=== PATIENT | female | born 2000 | race Caucasian/White ===

== ENCOUNTER 2022-02-28 12:01 | Emergency (ER) | payer MEDICAID, SELFPAY ==
[2022-02-28] VITALS (11 sets, daily range): BP systolic 122–160; BP diastolic 72–114; PULSE 98–120; RESP 15–18; TEMP 36.9; O2SAT 98–100
--- NOTE | 2022-02-28 12:00 | RT.EKG_ITS ---
APPROVED REPORT Exam: Resting ECG Reason for Exam: chest discomfort Patient Location: E HR:108 bpm ECG Measurements Heart Rate 108 AXIS NH 152 P 71 QRSd 77 QRS 80 QT 336 T 46 QTc 451 Conclusion Sinus tachycardia...rate> 99
--- NOTE | 2022-02-28 13:30 | DI.CT_ITS ---
Exam(s) CT CHEST W EXAM: CT CHEST W CLINICAL HISTORY: chest pain after cough/vomiting, painful swallowin. TECHNIQUE: Multi planar reconstructions were performed. CONTRAST MATERIAL: Omnipaque 350; 75 cc COMPARISON: No exams were available for comparison FINDINGS: CHEST: LUNGS: No infiltrates nor pleural effusions. No nodules. No pneumothorax. No significant focal fin dings in the trachea and mainstem bronchi. No bronchiectasis. MEDIASTINUM: There is no hilar nor mediastinal adenopathy. No pneumomediastinum.No obvious abnormalit y in the region of the esophagus and para esophageal tissues nor at the GE junction. Visualized uppe r stomach unremarkable. CARDIAC: Heart size is normal. There is no pericardial effusion.Caliber of the thoracic aorta is wit hin normal limits. No dissection. VISUALIZED UPPER ABDOMEN:There are no significant adrenal masses. OSSEOUS: No significant osseous lesions.No fractures.. IMPRESSION: 1. No significant intrathoracic findings. RADIATION DOSE DELIVERED: 571.32mGy.cm Total DLP DATA REPOSITORY: All CT scans at this facility are submitted to the National Radiology Data Registry (NRDR) Dose Index Registry (DIR) with the [employer] (ACR). RADIATION OPTIMIZATION: All CT scans at this facility use at least one of these dose optimization te chniques: automated exposure control; mA and/or kV adjustment per patient size (includes targeted exa ms where dose is matched to clinical indication); or iterative reconstruction.
[2022-02-28 14:06] LABS: Abs Immature Grans 0.05 10^3/uL (0.0-0.06); Absolute Basophil Count 0.09 10^3/uL (0.0-0.2); Absolute Eosinophil Count 0.33 10^3/uL (0.0-0.7); Absolute Lymphocyte Count 3.06 10^3/uL (1.2-3.4); Absolute Monocyte Count 0.84 10^3/uL (0.1-0.8); Basophils % 0.8; HCT 44.4 % (36.0-46.0); HGB 14.3 g/dL (11.2-15.7); Immature Grans % 0.5; Lymphocytes % 27.6; MCH 29.2 pg (27.0-33.0); MCHC 32.2 % (32.0-36.0); MCV 91 fL (80-95); MPV 11.4 fL (8.0-11.0); Monocytes % 7.6; Neutrophils % 60.5; Platelet Count 355 10^3/uL (130-400); RBC 4.89 10^6/uL (3.93-5.22); RDW 13.7 % (11.7-14.6); RDW-SD 46.2 fL; WBC 11.07 10^3/uL (4.4-10.8)
[2022-02-28 14:32] LABS: ALT 36 U/L (14-59); AST 19 U/L (15-37); Albumin 4.4 g/dL (3.4-5.0); Alkaline Phosphatase 102 U/L (46-116); Anion Gap 10.6 mmol/L (3-11); BUN 5 mg/dL (7-18); Bilirubin, Total 0.3 mg/dL (0.2-1.0); CO2 28.4 mmol/L (21.0-32.0); CREATININE 0.8 mg/dL (0.55-1.02); Calcium 9.9 mg/dL (8.5-10.1); Chloride 101 mmol/L (98-107); Estimated GFR 106.11 (mL/min/1.73m2); Glucose 86 mg/dL (74-106); Potassium 3.1 mmol/L (3.5-5.1); Sodium 140 mmol/L (136-145); Total Protein 9.5 g/dL (6.4-8.2)
[2022-02-28] MEDS: Normal Saline - Diluent 50 ML VIAL IJ (14:41)
[2022-02-28] MEDS: Omnipaque 350 MG/ML 100 ML BTL 80 ML IJ (14:42)
[2022-02-28] MEDS: Normal Saline Flush 10 ML SYR IVP (14:42)
--- NOTE | 2022-02-28 14:56 | DI.VRAD_ITS ---
PROCEDURE INFORMATION: Exam: CT Chest With Contrast; Diagnostic Exam date and time: 02/28/2022 2:37 PM Age: 22 years old Clinical indication: Other: Chest pain after cough/vomiting, painful swallowin TECHNIQUE: Imaging protocol: Diagnostic computed tomography of the chest with contrast. 3D rendering (Not supervised by radiologist): MIP and/or 3D reconstructed images were created by the technologist. Contrast material: OMNIPAQUE 350; Contrast volume: 80 ml; Contrast route: INTRAVENOUS (IV); COMPARISON: No relevant prior studies available. FINDINGS: Lungs: Unremarkable. No consolidation. No masses. Pleural spaces: Unremarkable. No pneumothorax. No pleural effusion. No pneumomediastinum. Heart: Unremarkable. No cardiomegaly. No pericardial effusion. Lymph nodes: Unremarkable. Minimal residual thymic tissue is present. No enlarged lymph nodes. Vasculature: Unremarkable. No aortic aneurysm. Bones/joints: Unremarkable. No acute fracture. Soft tissues: Unremarkable. IMPRESSION: No acute findings. Dictated and Authenticated by: Andrew Núñez MD. Ordering:BLANCA Tolentino MD
[2022-02-28] MEDS: Mylanta Suspension 30 ML CUP PO (15:02)
[2022-02-28] MEDS: FAMOTIDINE 20 MG in Normal Saline 100 ML 400 MG IVPB (15:02)
[2022-02-28] MEDS: Pantoprazole 40 MG VIAL IVP (15:25)
--- NOTE | 2022-02-28 16:43 | ED.GENADUL_ITS ---
Discharge Plan Disposition Patient Disposition: Home Condition: Stable Discharge Details Clinical Impression: Esophagitis Primary Care Provider: [facility] Provider: Rajan Paul Home Meds and New Rx's Prescriptions: New pantoprazole 40 mg tablet,delayed release (DR/EC) 40 mg PO DAILY Qty: 14 0RF famotidine [Pepcid] 20 mg tablet 20 mg PO BID Qty: 14 0RF Continued albuterol sulfate 90 mcg/actuation Hfa Aerosol Inhaler 2 puff INHALATION 6XD PRN norethindrone (contraceptive) [Marilee-BE] 0.35 mg Tablet 0.35 mg PO DAILY calcium carbonate 1,000 mg Tablet 2,000 mg PO DAILY melatonin 10 mg Tablet 10 mg PO DAILY Discharge Instructions Instructions: GERD (Gastroesophageal Reflux Disease) (ED) Additional Instructions: Allow for bowel rest today and tomorrow. Please maintain a clear liquid diet today. You may advance your diet to soft bland foods tomorrow evening as tolerated. Please contact your primary care physician to arrange follow-up. If symptoms persist this week, additional diagnostic testing may be indicated. Be sure to discuss this with your doctor. Return to the ER immediately for any worsening or new concerning symptoms. Medical Decision Making 22-year-old female with history of migraines, here with chest discomfort and difficulty swallowing that started after excessive coughing and posttussive emesis over the past couple weeks. EKG was reviewed and interpreted by me: Normal axis, please see report, sinus tachycardia 108 bpm, consider biatrial enlargement Considered Boerhaave's syndrome versus GERD versus esophagitis. CT of the chest was interpreted by radiology: No acute findings. Patient was given Pepcid IV, pantoprazole IV, and Mylanta p.o. She was reasse ssed and noted significant improvement in symptoms. Tolerating p.o. intake. All results were discussed with the patient. Plan will be for bowel rest and will continue both Pepcid and PPI. Patient understands that if symptoms return or persist this week, she should be seen for additional outpatient diagnostic work-up including potential endoscopy. She was encouraged to return immediately should she have any worsening or new concerning symptoms. Patient does have mild hypokalemia. She was given potassium chloride 20 mEq by mouth. Lab Data Lab results reviewed: Yes I reviewed the patient's lab results. Labs: Laboratory Tests Range/Units 02/28/22 02/28/22 13:09 13:09 WBC (4.4-10.8) 10^3/uL 11.07 H RBC (3.93-5.22) 10^6/uL 4.89 Hgb (11.2-15.7) g/dL 14.3 Hct (36.0-46.0) % 44.4 MCV (80-95) fL 91 MCH (27.0-33.0) pg 29.2 MCHC (32.0-36.0) % 32.2 RDW (11.7-14.6) % 13.7 Plt Count (130-400) 10^3/uL 355 MPV (8.0-11.0) fL 11.4 H Immature Gran % 0.5 Neutrophils % 60.5 Lymphocytes % 27.6 Monocytes % 7.6 Eosinophils % 3.0 Basophils % 0.8 Nucleated RBC % (0.0-0.3) % 0.0 Absolute Neutrophils (1.2-6.7) 10^3/uL 6.70 Absolute Lymphocytes (1.2-3.4) 10^3/uL 3.06 Absolute Monocytes (0.1-0.8) 10^3/uL 0.84 H Absolute Eosinophils (0.0-0.7) 10^3/uL 0.33 Absolute Basophils (0.0-0.2) 10^3/uL 0.09 Sodium (136-145) mmol/L 140 Potassium (3.5-5.1) mmol/L 3.1 L Chloride (98-107) mmol/L 101 Carbon Dioxide (21.0-32.0) mmol/L 28.4 Anion Gap (3-11) mmol/L 10.6 BUN (7-18) mg/dL 5 L Creatinine (0.55-1.02) mg/dL 0.8 Est GFR (CKD-EPI 2020) (mL/min/1.73m2) 106.11 Glucose (74-106) mg/dL 86 Calcium (8.5-10.1) mg/dL 9.9 Total Bilirubin (0.2-1.0) mg/dL 0.3 AST (15-37) U/L 19 ALT (14-59) U/L 36 Alkaline Phosphatase (46-116) U/L 102 Total Protein (6.4-8.2) g/dL 9.5 H Albumin (3.4-5.0) g/dL 4.4 HPI General Mode of arrival: ambulatory . Date/Time Provider Initiated Documentation: 02/28/22 13:30 . Limitations to Documentation: no limitations . Information obtained by: patient . HPI Narrative: 22-year-old female with history of migraine headaches, presents with chief complaint of chest pain. Patient notes that she has had recent URI with excessive coughing and posttussive emesis over the past 2 weeks. Those symptoms have improved and she no longer has a cough but subsequently developed chest pain yesterday. Pain is described as sharp and pressure worse when she attempts to swallow. She notes it feels like she has a stone stuck in her esophagus. Pain is moderate. No associated abdominal pain. No shortness of breath. Related Data Home Medications Medication Instructions Recorded Confirmed albuterol sulfate 90 mcg/actuation 2 puff inhalation 6XD PRN 02/28/22 02/28/22 aerosol inhaler calcium carbonate 1,000 mg tablet 2,000 mg PO DAILY 02/28/22 02/28/22 famotidine 20 mg tablet (Pepcid) 20 mg PO BID #14 tabs 02/28/22 melatonin 10 mg tablet 10 mg PO DAILY 02/28/22 02/28/22 norethindrone (contraceptive) 0.35 0.35 mg PO DAILY 02/28/22 02/28/22 mg tablet (Marilee-BE) pantoprazole 40 mg tablet,delayed 40 mg PO DAILY #14 tabs 02/28/22 release Previous Rx's Medication Instructions Recorded famotidine 20 mg tablet (Pepcid) 20 mg PO BID #14 tabs 02/28/22 pantoprazole 40 mg tablet,delayed 40 mg PO DAILY #14 tabs 02/28/22 release Allergies Allergy/AdvReac Type Severity Reaction Status Date / Time citalopram Allergy Intermediate Nausea Unverified 02/28/22 12:13 amoxicillin [From Augmentin] Allergy Mild Nausea Unverified 02/28/22 12:13 clavulanic acid Allergy Mild Nausea Unverified 02/28/22 12:13 [From Augmentin] gluten Allergy Mild Unverified 02/28/22 12:13 lactase [From Dairy Aid] Allergy Mild Unverified 02/28/22 12:13 legumes Allergy Mild Unverified 02/28/22 12:13 General Stated Complaint: Chest Pain JEZ: 3 Review of Systems All systems reviewed & are unremarkable except as noted in HPI and below Constitutional Constitutional: Denies fever(s) Cardiovascular Cardiovascular: Denies dyspnea Respiratory Respiratory: Denies dyspnea PFSH All Active Problems Esophagitis (Acute) Social History Smoking risk assessment performed?: No Exam Const General: cooperative and no acute distress HENMT Mouth: moist mucous membranes Eyes Conjunctivae: normal conjunctivae Sclera: normal sclerae Neck Neck: trachea midline and supple Resp Auscultation: clear to auscultation bilaterally, no rales, no rhonchi and no wheezes Cardio Rate: regular rate Rhythm: regular rhythm Other: Increased heart rate with inspiration and decreases with expiration GI Palpation: soft, not firm, no guarding, no masses, not rigid and nontender Skin General skin exam: no rashes or lesions noted Neuro General: patient alert, patient awake and tone normal Extrem General: no calf tenderness and no edema Psych Appearance: grossly normal Mental Status: mental status grossly normal Speech and Movement: speech and movement normal Course Vital Signs Vital signs: Vital Signs Temperature 36.9 C 02/28/22 12:09 Respiratory Rate 18 02/28/22 12:09 Blood Pressure 160/114 H 02/28/22 12:09 Pulse Oximetry 98 02/28/22 12:09 Temperature 36.9 C 02/28/22 12:09 Pulse 120 H 02/28/22 12:17 Respiratory Rate 15 02/28/22 13:12 Respiratory Effort 02/28/22 13:12 Respiratory Depth Normal 02/28/22 13:12 Respiratory Pattern Normal 02/28/22 13:12 Blood Pressure 148/77 H 02/28/22 12:17 Pulse Oximetry 98 02/28/22 12:09 Oxygen Delivery Method Room Air 02/28/22 12:09 Oxygen Flow Rate 0 02/28/22 12:09 Pain Level 6 02/28/22 13:12 Lab/Test Results Lab/Test Results: Laboratory Tests Range/Units 02/28/22 02/28/22 13:09 13:09 WBC (4.4-10.8) 10^3/uL 11.07 H RBC (3.93-5.22) 10^6/uL 4.89 Hgb (11.2-15.7) g/dL 14.3 Hct (36.0-46.0) % 44.4 MCV (80-95) fL 91 MCH (27.0-33.0) pg 29.2 MCHC (32.0-36.0) % 32.2 RDW (11.7-14.6) % 13.7 Plt Count (130-400) 10^3/uL 355 MPV (8.0-11.0) fL 11.4 H Immature Gran % 0.5 Neutrophils % 60.5 Lymphocytes % 27.6 Monocytes % 7.6 Eosinophils % 3.0 Basophils % 0.8 Nucleated RBC % (0.0-0.3) % 0.0 Absolute Neutrophils (1.2-6.7) 10^3/uL 6.70 Absolute Lymphocytes (1.2-3.4) 10^3/uL 3.06 Absolute Monocytes (0.1-0.8) 10^3/uL 0.84 H Absolute Eosinophils (0.0-0.7) 10^3/uL 0.33 Absolute Basophils (0.0-0.2) 10^3/uL 0.09 Sodium (136-145) mmol/L 140 Potassium (3.5-5.1) mmol/L 3.1 L Chloride (98-107) mmol/L 101 Carbon Dioxide (21.0-32.0) mmol/L 28.4 Anion Gap (3-11) mmol/L 10.6 BUN (7-18) mg/dL 5 L Creatinine (0.55-1.02) mg/dL 0.8 Est GFR (CKD-EPI 2020) (mL/min/1.73m2) 106.11 Glucose (74-106) mg/dL 86 Calcium (8.5-10.1) mg/dL 9.9 Total Bilirubin (0.2-1.0) mg/dL 0.3 AST (15-37) U/L 19 ALT (14-59) U/L 36 Alkaline Phosphatase (46-116) U/L 102 Total Protein (6.4-8.2) g/dL 9.5 H Albumin (3.4-5.0) g/dL 4.4 POC- Test(urine) Negative
[2022-02-28] MEDS: Potassium Chloride 20 MEQ TABCR PO (17:01)
== END 2022-02-28 17:02 | disposition home or self-care (01) ==
PROVIDERS: Emergency Provider Student in an Organized Health Care Education/Training Program
DX: K20.90 Esophagitis, unspecified without bleeding (principal); R00.0 Tachycardia, unspecified; I51.7 Cardiomegaly
CPT/HCPCS: 36415; 80053; 81025; 93005; 96365; 96375; 99285; 71260; 85025; 93010; J3490

== ENCOUNTER 2022-04-22 15:56 | Outpatient (REF) | payer MEDICAID, SELFPAY ==
[2022-04-22 21:38] LABS: Anion Gap 8.1 mmol/L (3-11); BUN 8 mg/dL (7-18); CO2 27.9 mmol/L (21.0-32.0); CREATININE 0.8 mg/dL (0.55-1.02); Calcium 9.8 mg/dL (8.5-10.1); Chloride 103 mmol/L (98-107); Estimated GFR 106.11 (mL/min/1.73m2); Glucose 81 mg/dL (74-106); Potassium 4.1 mmol/L (3.5-5.1); Sodium 139 mmol/L (136-145); TSH (W/Ref FT4) 0.63 uIU/mL (0.36-3.74)
== END 2022-04-22 15:57 | disposition home or self-care (01) ==
LOC: NCHCN 15:56
PROVIDERS: Visit Provider Family Medicine
DX: R00.0 Tachycardia, unspecified (principal)
CPT/HCPCS: 80048; 84443

== ENCOUNTER 2022-06-17 17:50 | Outpatient (REF) | payer MEDICAID, SELFPAY ==
--- NOTE | 2022-06-17 15:30 | SKI_PTH ---
PATIENT: Linwood Doyle LOC: NCN #:[id number] AGE/SX: 22/F ROOM: RE06/17/[address]: Lorrie Prater : 2000 BED: DIS: 06/17/2022 SPEC #: [id number] RECD: 06/18/22 09:45 STATUS: JENNYFER REEddie #: [id number] KAVITA: 06/17/22 15:[address]: Lorrie Prater DEPT: Surgical Specimen RECD BY: Whitney Parikh Tissues: 1 - SKIN BIOPSY(SHAVE/PUNCH) Procedures: SKIN LEVEL 4 Comments: [id number]
== END 2022-06-17 17:51 | disposition home or self-care (01) ==
LOC: NCHCN 17:50
PROVIDERS: Visit Provider Family Medicine
DX: D22.5 Melanocytic nevi of trunk (principal)
CPT/HCPCS: 88305

== ENCOUNTER 2022-08-01 13:11 | Emergency (ER) | payer MEDICAID, SELFPAY ==
[2022-08-01 13:23] VITALS: BP 135/78; PULSE 116; RESP 18; O2SAT 99
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
[2022-08-01] MEDS: Normal Saline - Diluent 50 ML VIAL IJ (14:04)
[2022-08-01] MEDS: Normal Saline Flush 10 ML SYR IVP (14:05)
[2022-08-01] MEDS: Omnipaque 350 MG/ML 100 ML BTL IJ (14:05)
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
[2022-08-01 14:10] LABS: Abs Immature Grans 0.03 10^3/uL (0.0-0.06); Absolute Basophil Count 0.07 10^3/uL (0.0-0.2); Absolute Lymphocyte Count 2.96 10^3/uL (1.2-3.4); Absolute Monocyte Count 0.91 10^3/uL (0.1-0.8); Absolute Neutrophil Count 6.28 10^3/uL (1.2-6.7); Basophils % 0.7; Eosinophils % 2.8; HCT 43.7 % (36.0-46.0); HGB 14.7 g/dL (11.2-15.7); Immature Grans % 0.3; Lymphocytes % 28.1; MCH 30.2 pg (27.0-33.0); MCHC 33.6 % (32.0-36.0); MCV 90 fL (80-95); Monocytes % 8.6; Neutrophils % 59.5; Platelet Count 250 10^3/uL (130-400); RBC 4.86 10^6/uL (3.93-5.22); RDW 13.2 % (11.7-14.6); RDW-SD 43.8 fL; WBC 10.55 10^3/uL (4.4-10.8)
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
[2022-08-01 14:25] LABS: ALT 41 U/L (14-59); AST 21 U/L (15-37); Albumin 4.2 g/dL (3.4-5.0); Alkaline Phosphatase 87 U/L (46-116); Anion Gap 9.2 mmol/L (3-11); BUN 10 mg/dL (7-18); Bilirubin, Total 0.5 mg/dL (0.2-1.0); CO2 26.8 mmol/L (21.0-32.0); CREATININE 0.8 mg/dL (0.55-1.02); Calcium 9.2 mg/dL (8.5-10.1); Chloride 104 mmol/L (98-107); Estimated GFR 106.11 (mL/min/1.73m2); Glucose 99 mg/dL (74-106); Lipase 19 U/L (16-77); Potassium 3.6 mmol/L (3.5-5.1); Sodium 140 mmol/L (136-145); Total Protein 8.8 g/dL (6.4-8.2)
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
[2022-08-01] MEDS: Lactated Ringers 1,000 ML 1000 ML IV (14:40)
[2022-08-01 16:01] VITALS: BP 115/73; PULSE 87; RESP 18; O2SAT 98
--- NOTE | 2022-08-01 16:02 | NUR.NOTE ---
wound care applied to left knee abrasion and left elbow abrasion. bacitracin and telfa applied to both. left knee wrapped with zac wrap and let elbow wrapped with kerlix. JOCELYN Watts agreeable with wound care.
== END 2022-08-01 16:03 | disposition home or self-care (01) ==
PROVIDERS: Emergency Provider Physician Assistant; PCP Family Medicine
DX: S80.212A Abrasion, left knee, initial encounter (principal); S30.811A Abrasion of abdominal wall, initial encounter; S40.812A Abrasion of left upper arm, initial encounter; S60.221A Contusion of right hand, initial encounter; V29.99XA Rider (driver) (passenger) of other motorcycle injured in unspecified traffic accident, initial encounter
CPT/HCPCS: 12001; 36415; 73562; 74177; 80053; 81025; 83690; 86900; 86901; 96360; 99285; 70450; 71260; 72125; 73130; 85025; 99284; J3490

== ENCOUNTER 2022-12-10 15:03 | Outpatient (REF) | payer MEDICAID, SELFPAY ==
[2022-12-10 16:17] LABS: Calculated LDL 100 mg/dL (<100); Cholesterol 165 mg/dL (<200); HDL Cholesterol 53 mg/dL (40-60); Triglyceride 63 mg/dL (<150)
== END 2022-12-10 15:04 | disposition home or self-care (01) ==
LOC: NCHCN 15:03
PROVIDERS: PCP Family Medicine; Visit Provider Family Medicine
DX: Z13.220 Encounter for screening for lipoid disorders (principal)
CPT/HCPCS: 80061

== ENCOUNTER 2023-11-24 15:12 | Outpatient (REF) | payer MEDICAID, SELFPAY ==
--- NOTE | 2023-11-24 14:00 | PAPFT_PTH ---
PATIENT: Linwood [place] LOC: [facility]#:[id number] AGE/SX: 23/F ROOM: RE11/24/[address]: Lorrie Prater : 2000 BED: DIS: 11/24/2023 SPEC #: [id number] RECD: 11/25/23 13:20 STATUS: JENNYFER REQ #: [id number] KAVITA: 11/24/23 14:[address]: Lorrie Prater DEPT: [facility] Cytology RECD BY: Whitney Parikh Tissues: 1 - CX/ENDOCX FOR PAP SMEARS Procedures: PAP THIN PREP/UVM Screening HPV DNA PROBE Comments: [id number] (HPV 16 & 18/45)
--- OUTSIDE RECORDS SUMMARY | 2023-11-24 15:17 | XMS_ITS | Encounter Summary ---
Author Organization [facility] Address [address] [place] [address] Care Team Providers Care Geospatial Engineer Name Role Phone Christen, Page DRILLER AND REAMER-C Primary Care Provider [phone] Lorrie Prater MD Primary Care Provider [phone] Encounter Details Date Type Department Care Team (Late st Contact Info) Description 06/16/2021 Lab Requisition [facility] Pathology & Laboratory Medicine - [facility] [address] [place] [address] Lucie Hilton MD [address] [place] [phone] Acute vaginitis Social History Tobacco Use Types Packs/Day Years Used Date Smoking Tobacco: Never Smokeless Tobacco: Never Alcohol Use Standard Drinks/Week Comments Not Currently 0 (1 standard drink = 0.6 oz pur e alcohol) PHQ-2 Answer Date Recorded PHQ-2 SUBTOTAL 0 09/27/2019 Interpersonal Safety Answer Date Record ed Physically Hurt Never 09/14/2019 Verbally Threaten Not on file 09/14/2019 Sex and Gender Information Value Date Recorded Sex Assigned at Not on file Gender Identity Female 01/21/2020 16:11 EST Sexual Orientation Not on file documented as of this encounter Plan of Treatment Not on file documented as of this encounter Procedures Procedure Name Priority Date/Time Associated Diagnosis Comments MOLECULAR VAGINITIS/VAGINOSIS ASSAY Today 06/16/2021 16:10 EDT Acute vaginitis CHLAMYDIA/N. GONORRHOEAE AMPLIFIED NUCLEIC ACID Today 06/16/2021 16:10 EDT Acute vaginitis documented in this encounter Results * CHLAMYDIA/N. GONORRHOEAE AMPLIFIED RNA (06/16/2021 16:10 EDT) Neisseria gonorrhoeae Result Negative Negative 06/17/2021 14:37 EDT [facility] Chlamydia trachomatis Result Negative Negative 06/17/2021 14:37 EDT [facility] Swab ENTIRE VAGINA / Unknown 06/16/2021 16:10 EDT 06/16/2021 21:29 EDT Lucie Hilton MD MICROBIOLOGY - GENER AL ORDERABLES Performing Organization Address [facility] Co de Phone Number [facility] [address] [place] [address] * MOLECULAR VAGINITIS/VAGINOSIS ASSAY (06/16/2021 16:10 EDT) Jeannie Species Negative Negative 14:37 EDT [facility] Jeannie glabrata Negative Negative 06/17/2021 14:37 EDT [facility] Trichomonas Vaginalis Negative Negative 06/17/2021 14:37 EDT [facility] BV (Bacterial vaginosis) Negative Negative 06/17/2021 14:37 EDT [facility] Swab ENTIRE VAGINA / Unknown 06/16/2021 16:10 EDT 06/16/2021 21:29 EDT Lucie Hilton MD MICROBIOLOGY - GENER AL ORDERABLES Performing Organization Address [facility] Co de Phone Number [facility] [address] [place] [address] documented in this encounter Visit Diagnoses Diagnosis Acute vaginitis Vaginitis and vulvovaginitis, unspecified documented in this encounter Care Teams Geospatial Engineer Relationship Specialty Start Date End Date Renetta Velásquez, DRILLER AND REAMER-C [address] [place] [address] PCP - General Family Medicine - Hospital Medicine 07/11/20 05/05/23 Lorrie Prater MD [address] [place] [address] PCP - General 05/06/23 documented as of this encounter
--- OUTSIDE RECORDS SUMMARY | 2023-11-24 15:17 | XMS_ITS | Encounter Summary ---
Author Organization [facility] Address [address] [place] [address] Care Team Providers Care Environmental Services Associate Name Role Phone Renetta Velásquez EASEMENT MAN-C Primary Care Provider [phone] Lorrie Prater MD Primary Care Provider [phone] Encounter Details Date Type Department Care Team (Late st Contact Info) Description 11/10/2020 Lab Requisition [facility] Pathology & Laboratory Medicine - [facility] [address] [place] [address] Renetta Velásquez, EASEMENT MAN-C [address] [place] [phone] Encounter for gynecological examination (general) (routine) without abnormal findings Social History Tobacco Use Types Packs/Day Years [...] Procedure Name Priority Date/Time Associated Diagnosis Comments CHLAMYDIA/N. GONORRHOEAE AMPLIFIED NUCLEIC ACID, THINPREP Today 11/06/2020 10:05 EDT Encounter for gynecological examination (general) (routine) without abnormal findings documented in this encounter Results * CHLAMYDIA/N. GONORRHOEAE AMPLIFIED RNA, THINPREP (11/06/2020 10:05 EDT) Neisseria gonorrhoeae Result Negative Negative 11/11/2020 16:27 EDT [facility] Chlamydia trachomatis Result Negative Negative 11/11/2020 16:27 EDT [facility] Papanicolaou smear specimen (specimen) CERVIX UTERI STRUCTURE / Unknown 11/06/2020 10:05 EDT 11/10/2020 12:11 EDT Renetta Velásquez EASEMENT MAN-C MICROBIOLOGY - GENER AL ORDERABLES Performing Organization Address City/State/[facility] Co de Phone Number [facility] [address] [place] [address] documented in this encounter Visit Diagnoses Diagnosis Encounter for gynecological examination (general) (routine) without abnormal findings documented in this encounter Care Teams Environmental Services Associate Relationship Specialty Start Date End Date Renetta Velásquez EASEMENT MAN-Kwasi [address] [facility] [address] [place] [phone] PCP - General Family Medicine - [facility] Medicine 07/11/20 05/05/23 Lorrie Prater MD [address] [place] [address] PCP - General 05/06/23 documented as of this encounter
--- OUTSIDE RECORDS SUMMARY | 2023-11-24 15:17 | XMS_ITS | Encounter Summary ---
Author Organization [facility] Address [address] [place] [address] Care Team Providers Care Rn Eligibility Name Role Phone Renetta Velásquez PUTTY WORKER-C Primary Care Provider Encounter Details Date Type Department Care Team (Late st Contact Info) Description 08/21/2021 Orders Only [facility] Radiology - [facility] [address] [place], [place] [phone] Samantha Fairbanks MD [address] [place] [address] Social History Tobacco Use Types Packs/Day Years [...] on file documented as of this encounter Visit Diagnoses Not on filedocumented in this encounter Care Teams Rn Eligibility Relationship Specialty Start Date End Date Renetta Velásquez, PUTTY WORKER-C [address] [place] [phone] PCP - General Family Medicine - [facility] Medicine 07/11/20 05/05/23 documented as of this encounter
--- OUTSIDE RECORDS SUMMARY | 2023-11-24 15:17 | XMS_ITS | Encounter Summary ---
Author Organization [facility] Address [address] [place] [address] Care Team Providers Care Utility Person Name Role Phone Christen, Page LANDSCAPE CREW MEMBER-C Primary Care Provider Reason for Referral * Radiology Services (Routine/Next Available) - Authorization Not Required Specialty Diagnoses / Procedures Referred By Contac t Referred To Contact Radiology Diagnoses History of pineal cyst Procedures MR HEAD W WO CONTRAST Lucie Hilton MD [address] [address] [facility] Referral ID Status Reason Start Date Expiration Date Visits Requested Visits Authorized [id number] Authorization Not Required 08/21/2021 1 1 Reason for Visit * Radiology Services (Routine/Next Available) - Authorization Not Required Specialty Diagnoses / Procedures Referred By Contac t Referred To Contact Radiology Diagnoses History of pineal cyst Procedures MR HEAD W WO CONTRAST Lucie Hilton MD [address] [address] [facility] Referral ID Status Reason Start Date Expiration Date Visits Requested Visits Authorized [id number] Authorization Not Required 08/21/2021 1 1 Encounter Details Date Type Department Care Team (Latest Contact Info) Description 10/01/2021 10:09 EDT - 10/01/2021 23:59 EDT [address] En[address] [facility] [address] [place] [address] History of pineal cyst Discharge Disposition: Home or Self Care Social History Tobacco Use Types Packs/Day Years [...] on file documented as of this encounter Medications at Time of Discharge Medication Sig Dispensed Refills Start Date End Date ascorbic acid, vitamin C, (VITAMIN C) 500 mg tablet Take 1,000 mg by mouth daily. Reported on 04/22/2016 cholecalciferol, Vitamin D3, 1,000 unit tablet Take 2,000 Units by mouth daily. LACTOBACILLUS ACIDOPHILUS (PROBIOTIC ORAL) Take by mouth. levonorgestrel-ethinyl estradiol (ORSYTHIA) 0.1-20 mg-mcg per tablet Take 1 Tab by mouth daily. MAGNESIUM ORAL Take by mouth. pediatric multivitamin (ANGEL CHEW VIT) chewable tablet Take 1 Tab by mouth daily. RIBOFLAVIN (VITAMIN B-2 ORAL) Take by mouth. rizatriptan (MAXALT) 10 mg tablet Take 10 mg by mouth as needed for Migraine. May repeat in 2 hours if needed documented as of this encounter Discharge Disposition Disposition Code Departure Means Destination Home or Self Care documented in this encounter Plan of Treatment Not on file documented as of this encounter Procedures Procedure Name Priority Date/Time Associated Diagnosis Comments MR HEAD W WO CONTRAST Routine 10/01/2021 11:26 EDT History of pineal cyst documented in this encounter Results * MR HEAD W WO CONTRAST (10/01/2021 11:26 EDT) Anatomical Region Laterality Modality Head Magnetic Resonan ce 10/01/2021 13:0 1 EDT Impressions 10/01/2021 13:01 EDT Redemonstrated cystic pineal lesion, unchanged compared to 09/20/2020 and favored to represent a benign cyst. Continued, prison imaging follow-up is needed to ensure stability. Narrative 10/01/2021 13:01 EDT EXAM: MRI HEAD WO/W CONTRAST HISTORY: 12 month check up eval pineal cyst / lesion TECHNIQUE: MRI head without and with intravenous gadolinium contrast. Structured report code: NR.MR04 COMPARISON: Head CT 09/09/2020. Head MRI 09/09/2020. FINDINGS: PARENCHYMA: No evidence of infarction. No parenchymal hemorrhage. No midline shift. No structural abnormality or significant parenchymal signal abnormality. There is slight mass effect on the dorsal tectum by the pineal region cyst. EXTRA-AXIAL SPACES: No evidence of extra-axial hemorrhage. No extra-axial collection. Unchanged pineal region cystic lesion which again measures approximately 15 mm x 17 mm x 10 mm (AP X TRV X CC). Again seen are a few internal septations and ill-defined enhancement in the posterior aspect. VENTRICLES: No hydrocephalus. No evidence of intraventricular hemorrhage. There is slight narrowing of the cerebral aqueduct secondary to mass effect from the pineal region cyst. VESSELS: The flow voids of the major intracranial vasculature are present. BONES: Unremarkable. ORBITS: No significant abnormality. PARANASAL SINUSES/MASTOID AIR CELLS: Predominantly clear. EXTRACRANIAL SOFT TISSUES: Unremarkable. Procedure Note Yordan Washburn MD - 10/01/2021 EXAM: MRI HEAD WO/W CONTRAST HISTORY: 12 month check up eval pineal cyst / lesion TECHNIQUE: MRI head without and with intravenous gadolinium contrast.Structured report code: [id number] COMPARISON: Head CT 09/09/2020. Head MRI 09/09/2020. FINDINGS: PARENCHYMA: No evidence of infarction. No parenchymal hemorrhage. No midline shift. Nostructural abnormality or significant parenchymal signal abnormality.There is slight mass effect on the dorsal tectum by the pineal regioncyst. EXTRA-AXIAL SPACES: No evidence of extra-axial hemorrhage. No extra-axial collection.Unchanged pineal region cystic lesion which again measures [id number] mm x 17 mm x 10 mm (AP X TRV X CC). Again seen are a few internalseptations and ill-defined enhancement in the posterior aspect. VENTRICLES: No hydrocephalus. No evidence of intraventricular hemorrhage. There isslight narrowing of the cerebral aqueduct secondary to mass effect fromthe pineal region cyst. VESSELS: The flow voids of the major intracranial vasculature are present. BONES: Unremarkable. ORBITS: No significant abnormality. PARANASAL SINUSES/MASTOID AIR CELLS: Predominantly clear. EXTRACRANIAL SOFT TISSUES: Unremarkable. IMPRESSION Redemonstrated cystic pineal lesion, unchanged compared to 09/20/2020 andfavored to represent a benign cyst. Continued, prison imaging follow-upis needed to ensure stability. Lucie Hilton MD IMG MRI ORDERABLES documented in this encounter Visit Diagnoses Diagnosis History of pineal cyst Personal history of other endocrine, metabolic, and immunity disorders documented in this encounter Administered Medications Inactive Administered Medications - up to 3 most recent administrations Medication Order MAR Action Action Date Dose Rate Site gadoterate meglumine solution 1-30 mL 1-30 mL, intravenous, Once in imaging, 1 dose, Starting on Amna 10/01/21 at 1055, Until Amna 10/01/21 at 1111, Routine, Imaging Protocol Orders Given 10/01/2021 11:11 EDT 15 mL documented in this encounter Orders Medications Ordered That Marty ht Not Have Been Administered Count Last Ordered Date First Ordered Date gadoterate meglumine solution 1-30 mL 1 documented in this encounter Care Teams Utility Person Relationship Specialty Start Date End Date Renetta Velásquez, LANDSCAPE CREW MEMBER-C [address] [facility] [address] [place] [address] PCP - General Family Medicine - [facility] Medicine 07/11/20 05/05/23 documented as of this encounter
--- OUTSIDE RECORDS SUMMARY | 2023-11-24 15:17 | XMS_ITS | Clinical Summary ---
Author Organization [facility] Address [address] [place] [address] Care Team Providers Care Architectural Representative Name Role Phone Lorrie Prater MD Primary Care Provider [phone] Allergies Active Allergy Reactions Criticality Noted Date Comments Amoxicillin-Pot Clavulanate 09/27/19 20 vomiting Medications Medication Sig Dispensed Refills Start Date End Date Status levonorgestrel-ethinyl estradiol (ORSYTHIA) 0.1-20 mg-mcg per tablet Take 1 Tab by mouth daily. Active pediatric multivitamin (ANGEL CHEW VIT) chewable tablet Take 1 Tab by mouth daily. Active ascorbic acid, vitamin C, (VITAMIN C) 500 mg tablet Take 1,000 mg by mouth daily. Reported on 04/22/2016 Active cholecalciferol, Vitamin D3, 1,000 unit tablet Take 2,000 Units by mouth daily. Active LACTOBACILLUS ACIDOPHILUS (PROBIOTIC ORAL) Take by mouth. Active RIBOFLAVIN (VITAMIN B-2 ORAL) Take by mouth. Active MAGNESIUM ORAL Take by mouth. Active rizatriptan (MAXALT) 10 mg tablet Take 10 mg by mouth as needed for Migraine. May repeat in 2 hours if needed Active Active Problems Problem Noted Date Diagnosed Date Goiter 01/15/2016 Overview: Multiple very small cysts 04/2016, negative thyroid antibodies. 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 Resolved Problems Problem Noted Date Diagnosed Date Resolved Date Multiple thyroid nodules 01/15/2016 Medical History Medical History Date Comments Depressive disorder Anxiety Family History Medical History Relation Comments No Known Brother M 1/2 Thyroid Disease Maternal Grandmother Thyroid Disease Mother Thyroid Disease Other MGGM Diabetes Paternal Grandmother Hearing Loss Neg Hx Infertility Neg Hx Relation Status Comments Brother Alive Father Alive Maternal Grandmother Mother Alive Other Paternal Grandmother Social History Tobacco Use Types Packs/Day Years [...] 16:11 EST Sexual Orientation Not on file Obstetrics History Last Filed Vital Signs Vital Sign Reading Time Taken Comments Blood Pressure 132/81 09/27/2019 1538 EDT Pulse 112 09/27/2019 1538 EDT Temperature 36.7 ??C (98.1 ??F) 09/27/2019 1538 EDT Respiratory Rate 16 09/27/2019 1538 EDT Oxygen Saturation 96% 09/27/2019 1538 EDT Inhaled Oxygen Concentration - - Weight 51.3 kg (113 lb 1.5 oz) 04/22/2016 0900 E DT Height 162.9 cm (5' 4.13) 04/22/2016 0900 EDT Body Mass Index 19.33 04/22/2016 0900 EDT Plan of Treatment Health Maintenance Due Date Last Done Comments Hepatitis B Vaccine (1 of 3 - 19+ 3-dose series) 02/24 COVID-19 Vaccine (2022-24 season) 2022 Hepatitis C Screen Completed 09/13/2019 Procedures Procedure Name Priority Date/Time Associated Diagnosis Comments HEPATITIS C AB W REFLEX TO HCV RNA BY PCR Today 09/13/2019 9:05 EDT Encounter for general adult medical examination without abnormal findings from Last 3 Months or Most Recently Relevant to Health Maintenance Results * HEPATITIS C AB W REFLEX TO HCV RNA BY PCR (09/13/2019 9:05 EDT) Hep C Antibody Negative Negative 09/14/2019 10:21 EDT [facility] Blood VENOUS BLOOD / Unknown 09/13/2019 9:05 EDT 09/13/2019 15:16 EDT Patience PATELP-C CHEMISTRY & BLOOD G ORDERABLES [facility] [address] [place] [address] from Last 3 Months or Most Recently Relevant to Health Maintenance Care Teams Architectural Representative Relationship Specialty Start Date End Date Lorrie Prater MD [address] [place] [address] PCP - General 05/06/23
--- OUTSIDE RECORDS SUMMARY | 2023-11-24 15:17 | XMS_ITS | Encounter Summary ---
Author Organization [facility] Address [address] [place] [address] Care Team Providers Care Commissioning Agent Name Role Phone Renetta Velásquez LIME SUPERVISOR-C Primary Care Provider Lorrie Prater MD Primary Care Provider [phone] Encounter Details Date Type Department Care Team (Late st Contact Info) Description 11/07/2020 Lab Requisition [facility] Pathology & Laboratory Medicine - [facility] [address] [place] [address] Renetta Velásquez LIME SUPERVISOR-C [address] [place] [phone] Encounter for general adult medical examination without abnormal findings; Encounter for gynecological examination (general) (routine) without [...] as of this encounter Plan of Treatment Scheduled Orders Name Type Priority Associated Diagnoses Orde r Schedule PAP TEST Pathology Today Encounter for general adult medical examination without abnormal findings Encounter for gynecological examination (general) (routine) without abnormal findings Ordered: 11/07/2020 documented as of this encounter Visit Diagnoses Diagnosis Encounter for general adult medical examination without abnormal findings Unspecified general medical examination Encounter for gynecological examination (general) (routine) without abnormal findings documented in this encounter Care Teams Commissioning Agent Relationship Specialty Start Date End Date Renetta Velásquez, PAYTONC [address] [facility] [address] [place] [address] PCP - General Family Medicine - [facility] Medicine 07/11/20 05/05/23 Lorrie Prater MD [address] [place] [address] PCP - General 05/06/23 documented as of this encounter
--- OUTSIDE RECORDS SUMMARY | 2023-11-24 15:17 | XMS_ITS | Encounter Summary ---
Author Organization [facility] Address [address] [place] [address] Care Team Providers Care Hardware Press Operator Name Role Phone Renetta Velásquez LIQUOR RECTIFIER-C Primary Care Provider Encounter Details Date Type Department Care Team (Late st Contact Info) Description 04/21/2023 Orders Only [facility] Radiology - [facility] [address] [place] [address] Ramírez Jerry [address] [place] [phone] Social History Tobacco Use Types Packs/Day Years [...] on filedocumented in this encounter Care Teams Hardware Press Operator Relationship Specialty Start Date End Date Renetta Velásquez, LIQUOR RECTIFIER-C [address] [place] [phone] PCP - General Family Medicine - [facility] Medicine 07/11/20 05/05/23 documented as of this encounter
--- OUTSIDE RECORDS SUMMARY | 2023-11-24 15:17 | XMS_ITS | Encounter Summary ---
Author Organization [facility] Address [address] [place] [address] Care Team Providers Care Intelligence Senior Sergeant Name Role Phone Christne, Page VALET CASHIER-C Primary Care Provider [phone] Lorrie Prater MD Primary Care Provider [phone] Encounter Details Date Type Department Care Team (Late st Contact Info) Description 06/18/2022 Lab Requisition [facility] Pathology & Laboratory Medicine - [facility] [address] [place], [place] [id number] Lorrie Prater MD [address] [place] [address] Encounter for other general examination Social History Tobacco Use Types Packs/Day Years [...] Procedure Name Priority Date/Time Associated Diagnosis Comments SURGICAL PATHOLOGY Today 06/17/2022 15 :30 EDT Encounter for other general examination documented in this encounter Results * SURGICAL PATHOLOGY (06/17/2022 15:30 EDT) Note to Patient The following pathology results have been interpreted by your pathologist and may be available to you before your health provider has had the opportunity to review them. Please allow time for your provider to receive these results and explore management options, if applicable. 06/22/2022 9:04 [facility] Final Diagnosis A. SKIN OF AXILLA, RIGHT, CURETTAGE: - Melanocytic nevus, compound type, fragmented, involving peripheral edges and biopsy base. See comment. 06/22/2022 9:04 [facility] Diagnosis Comment The biopsy shows multiple fragmented pieces of tissue including epidermis and superficial dermis. Along the junction, individual melanocytes and small nests are seen. Evaluation of architecture is challenging given the fragmented and partially transected nature of the biopsy. Within the dermis, nested melanocytes and individual melanocytes are seen. Clinical correlation is recommended. 06/22/2022 9:04 [facility] Attestation By the signature below, the attending physician certifies that they have 1) personally conducted a gross and/or microscopic examination of the described specimen(s), and/or personally interpreted the results of laboratory testing of the described specimen(s), and 2) personally rendered or confirmed the above diagnosis. 06/22/2022 9:04 [facility] at 0904 Clinical History Skin lesion 06/22/2022 9:04 [facility] Gross Description A. Received in formalin labelled with proper patient identification (initials B, M) and RT axilla is a 0.4 x 0.3 x 0.2 cm aggregate of milian-brown tissue. The specimen is entirely submitted in A1. JOCELYN SHAIKH(ASCP) 06/21/2022 8:28 06/22/2022 9:04 [facility] Performing Lab [facility] 06/22/2022 9:04 [facility] Scanned Images 06/22/2022 9:04 [facility] Tissue TISSUE SPECIMEN FROM SKIN / Unknown 06/17/2022 15:30 EDT 06/18/2022 17:52 EDT Lorrie Prater MD PATHOLOGY ORDERABLES [facility] [address] [place] [address] documented in this encounter Visit Diagnoses Diagnosis Encounter for other general examination documented in this encounter Care Teams Intelligence Senior Sergeant Relationship Specialty Start Date End Date Renetta Velásquez, VALET CASHIER-C [address] [place] [address] PCP - General Family Medicine - [facility] Medicine 07/11/20 05/05/23 Lorrie Prater MD [address] [place] [address] PCP - General 05/06/23 documented as of this encounter
--- OUTSIDE RECORDS SUMMARY | 2023-11-24 15:17 | XMS_ITS ---
Author Organization Unknown Address [address] [place] [phone] Phone Care Team Providers Care Wedger And Gluer Name Role Phone ELLIE RODRIGUEZ Attending Unavailable Social History Type Status Start Date End Date Code Code Syst em Smoking History Never smoker (Never Smoked) [id number] SNOMED CT Sex Female Hospital Discharge Instructions Should you have any questions prior to discharge, please contact a member of your healthcare team. If you have left the hospital and have any questions, please contact your primary care physician. Reason For Referral No Data Found Plan of Treatment PFT COMPLETE W BROCHODILATER 02/03/2023 US PELVIC / TV 09/24/2022 Encounters Encounter Diagnosis Start Date Code Code Sys tem Other forms of dyspnea 02/03/2023 SNOME D-CT Personal Care Team Section Performer Name Performer Role Active Date Inactive Da te
--- OUTSIDE RECORDS SUMMARY | 2023-11-24 15:17 | XMS_ITS | Referral Summary ---
Author Organization [facility] Address [address] [place] [address] Care Team Providers Care Management Scientist Name Role Phone Lorrie Prater MD Primary Care Provider [phone] Allergies Active Allergy Reactions Criticality Noted Date [...] Date Resolved Date Multiple thyroid nodules 01/15/2016 Social History Tobacco Use Types Packs/Day Years [...] 16:11 EST Sexual Orientation Not on file Last Filed Vital Signs Vital Sign Reading [...] 19.33 04/22/2016 0900 EDT Plan of Treatment Not on file Procedures Procedure Name Priority Date/Time Associated Diagnosis [...] C Antibody Negative Negative 09/14/2019 10:21 EDT [facility] Blood VENOUS BLOOD / Unknown 09/13/2019 9:05 EDT 09/13/2019 15:16 EDT Patience PATELP-C CHEMISTRY & BLOOD G ORDERABLES [facility] [address] [place] [address] from Last 3 Months or Most Recently Relevant to Health Maintenance Care Teams Management Scientist Relationship Specialty Start Date End Date Lorrie Prater MD [address] [place] [address] PCP - General 05/06/23
--- OUTSIDE RECORDS SUMMARY | 2023-11-24 15:17 | XMS_ITS | Encounter Summary ---
Author Organization [facility] Address [address] [place] [address] Care Team Providers Care Drafter Heating And Ventilating Name Role Phone Renetta Velásquez SOURCING ASSISTANT-C Primary Care Provider Lorrie Prater MD Primary Care Provider [phone] Encounter Details Date Type Department Care Team (Late st Contact Info) Description 11/11/2020 Lab Requisition [facility] Pathology & Laboratory Medicine - [facility] [address] [place] [address] Renetta Velásquez, SOURCING ASSISTANT-C [address] [place] [phone] Encounter for general adult medical examination [...] Procedure Name Priority Date/Time Associated Diagnosis Comments PAP TEST Today 11/06/2020 10:00 EDT Encounter for general adult medical examination without abnormal findings Encounter for gynecological examination (general) (routine) without abnormal findings documented in this encounter Results * PAP TEST (11/06/2020 10:00 EDT) Specimens A. Cervix and/or Endocervix , ThinPrep Imaging System with Manual Evaluation 11/25/2020 9:27 EDT [facility] Specimen Adequacy Satisfactory for Evaluation - transformation zone component absent 11/25/2020 9:27 EDT [facility] General Categorization Negative for intraepithelial lesion or malignancy 11/25/2020 9:27 T [facility] Descriptive Diagnosis Fungal organisms present morphologically consistent with Jeannie species. 11/25/2020 9:27 T [facility] Attestation . 11/25/2020 9:27 T [facility] at 0927 Clinical History See below 11/26/19 9:27 EDT [facility] Performing Lab [facility] 11/25/2020 9:27 [facility] Scanned Images 11/25/2020 9:27 [facility] Papanicolaou smear specimen (specimen) CERVIX UTERI STRUCTURE / Unknown 11/06/2020 10:00 EDT 11/11/2020 12:16 EDT Renetta NAYAK PATHOLOGY ORDERABLES [facility] [address] [place] [address] documented in this encounter Visit Diagnoses Diagnosis Encounter for general adult medical examination without abnormal findings Unspecified general medical examination Encounter for gynecological examination (general) (routine) without abnormal findings documented in this encounter Care Teams Drafter Heating And Ventilating Relationship Specialty Start Date End Date Renetta Velásquez NP-C [address] [place] [address] PCP - General Family Medicine - [facility] Medicine 07/11/20 05/05/23 Lorrie Prater MD [address] [place] [address] PCP - General 05/06/23 documented as of this encounter
--- OUTSIDE RECORDS SUMMARY | 2023-11-24 15:17 | XMS_ITS | Encounter Summary ---
Author Organization [facility] Address [address] [place] [address] Care Team Providers Care General Service Technician Name Role Phone Lorrie Prater MD Primary Care Provider [phone] Reason for Referral * Radiology Services (Routine/Next Available) - Authorization Not Required Specialty Diagnoses / Procedures Referred By Carlos castro Referred To Contact Radiology Diagnoses Cerebral cysts Procedures MR HEAD W WO CONTRAST Lorrie Prater MD [address] [place] [address] [facility] Referral ID Status Reason Start Date Expiration Date Visits Requested Visits Authorized [id number] Authorization Not Required 04/21/2023 1 1 Reason for Visit * Radiology Services (Routine/Next Available) - Authorization Not Required Specialty Diagnoses / Procedures Referred By Carlos castro Referred To Contact Radiology Diagnoses Cerebral cysts Procedures MR HEAD W WO CONTRAST Lorrie Prater MD [address] [place] [address] [facility] Referral ID Status Reason Start Date Expiration Date Visits Requested Visits Authorized [id number] Authorization Not Required 04/21/2023 1 1 Encounter Details Date Type Department Care Team (Latest Contact Info) Description 05/23/2023 12:48 EDT - 05/23/2023 23:59 EDT Hospital Encounter [facility] [place] [address] [address] Cerebral cysts Discharge Disposition: Home or Self Care Social [...] Comments MR HEAD W WO CONTRAST Routine 05/23/2023 13:41 EDT Cerebral cysts documented in this encounter Results * MR HEAD W WO CONTRAST (05/23/2023 13:41 EDT) Anatomical Region Laterality Modality Head Magnetic Resonan ce 05/23/2023 16:2 8 EDT Impressions 05/23/2023 16:28 EDT Unchanged pineal cyst. I have personally reviewed the images and the above interpretation and agree with the findings. [id number] Narrative 05/23/2023 16:28 EDT EXAM: MRI HEAD WO/W CONTRAST HISTORY: 12 mo check up to eval pineal cyst / lesion;G93.0:Cerebral cysts TECHNIQUE: MRI head without and with intravenous gadolinium contrast. Structured report code: [id number] COMPARISON: Head MRI 09/09/2020, 09/20/2020, 10/01/2021. FINDINGS: PARENCHYMA: No evidence of infarction. No parenchymal hemorrhage. No mass or shift of structures across the midline. ??No abnormal enhancement. Slight mass effect on the dorsal tectum by the pineal region cyst, as before. EXTRA-AXIAL SPACES: No extra-axial collection. There has been no significant change in the 15 x 17 x 10 mm (AP by TRV by CC) pineal region cystic lesion with a few internal septations and ill-defined enhancement posteriorly. VENTRICLES: No hydrocephalus. Slight narrowing of the cerebral aqueduct secondary to mass effect, similar to prior. VESSELS: The flow voids and intravascular enhancement are normal. BONES: Unremarkable. ORBITS: No significant abnormality. PARANASAL SINUSES/MASTOID AIR CELLS: Predominantly clear. EXTRACRANIAL SOFT TISSUES: Unremarkable. Procedure Note Carlito Diaz MD - 05/23/2023 EXAM: MRI HEAD WO/W CONTRAST HISTORY: 12 mo check up to eval pineal cyst / lesion;G93.0:Cerebralcysts TECHNIQUE: MRI head without and with intravenous gadolinium contrast.Structured report code: [id number] COMPARISON: Head MRI 09/09/2020, 09/20/2020, 10/01/2021. FINDINGS: PARENCHYMA: No evidence of infarction. No parenchymal hemorrhage. No mass or shift ofstructures across the midline. No abnormal enhancement. Slight masseffect on the dorsal tectum by the pineal region cyst, as before. EXTRA-AXIAL SPACES: No extra-axial collection. There has been no significant change in the 15x 17 x 10 mm (AP by TRV by CC) pineal region cystic lesion with a fewinternal septations and ill-defined enhancement posteriorly. VENTRICLES: No hydrocephalus. Slight narrowing of the cerebral aqueduct secondary tomass effect, similar to prior. VESSELS: The flow voids and intravascular enhancement are normal. BONES: Unremarkable. ORBITS: No significant abnormality. PARANASAL SINUSES/MASTOID AIR CELLS: Predominantly clear. EXTRACRANIAL SOFT TISSUES: Unremarkable. IMPRESSION Unchanged pineal cyst. I have personally reviewed the images and the above interpretation andagree with the findings. [id number] Lorrie Prater MD IMG MRI ORDERABLES documented in this encounter Visit Diagnoses Diagnosis Cerebral cysts documented in this encounter Administered Medications Inactive Administered Medications - up to 3 most recent administrations Medication Order MAR Action Action Date Dose Rate Site gadoterate meglumine solution 1-30 mL 1-30 mL, intravenous, Once in imaging, 1 dose, Starting on Tue05/23/23 at 1308, Until Tue05/23/23 at 1325, Routine, Imaging Protocol Orders Given 05/23/2023 13:25 EDT 15 mL documented in this encounter Orders Medications Ordered That Marty ht Not Have Been Administered Count Last Ordered Date First Ordered Date gadoterate meglumine solution 1-30 mL 1 documented in this encounter Care Teams General Service Technician Relationship Specialty Start Date End Date Lorrie Prater MD [address] [place] [address] PCP - General 05/06/23 documented as of this encounter
--- OUTSIDE RECORDS SUMMARY | 2023-11-24 15:17 | XMS_ITS ---
Author Organization Unknown Address [address] [place] [address] [phone] Phone Care Team Providers Care Wrist Hemmer Name Role Phone ELLIE RODRIGUEZ Attending Unavailable Results US PELVIC TRANSVAGINAL* - Co mpleted: 09/24/2022 11:38 LOINC: [facility] [place], [place] [address] PACS LEAD SIMULATION MODELING ENGINEER REPORT Patient Name: CONSUELO PINTO MRN: Sex: : Age: [id number] F 2000 22 Account: Accession: Admit: StayType: [id number] 09/24/2022 O/P Ordered: Order ID: Submitted: Ordering Provider: 09/24/2022 11:02 [id number] JENNIFER SAUCEDA Completed: Technologist: Resulted: 09/24/2022 11:38 [facility] 09/24/2022 11:43 Study Description: US PELVIC TRANSVAGINAL* Study Reason: IRREGULAR PERIODS TECNIQUE: Transabdominal and transvaginal exams performed. COMPARISON: None FINDINGS: UTERUS: Anteverted. 7.0 x 2.7 x 3.4 cm Endometrium: 3 mm Myometrium: Unremarkable. Cervix: Small nabothian cyst OVARIES: Right: Cyst or mass: None. Left: Cyst or mass: None. DOPPLER: Color: Symmetric and uniform flow to both ovaries. No hyperemia. CUL-DE-SAC: Free fluid: None. IMPRESSION: 1. Normal-appearing uterus with endometrial stripe within normal limits. 2. Unremarkable bilateral ovaries. Report Digitally Signed by Smitha Rea on 09/24/2022 11:43 AM EDT Social History Type Status Start Date End Date Code Code Syst em Smoking History Never smoker (Never Smoked) [id number] SNOMED CT Sex Female Hospital Discharge Instructions Should you have any questions prior to discharge, please contact a member of your healthcare team. If you have left the hospital and have any questions, please contact your primary care physician. Reason For Referral No Data Found Plan of Treatment PFT COMPLETE W KIRSTIN 02/03/2023 US PELVIC / TV 09/24/2022 Encounters Encounter Diagnosis Start Date Code Code Sys tem Irregular menstruation, unspecified 09/24/2022 SNOMED-CT Personal Care Team Section Performer Name Performer Role Active Date Inactive Da te
--- OUTSIDE RECORDS SUMMARY | 2023-11-24 15:17 | XMS_ITS | Encounter Summary ---
Author Organization [facility] Address [address] [place] [address] Care Team Providers Care Operations Scheduler Name Role Phone Renetta Velásquez SOFT SHOE DANCER-C Primary Care Provider Lorrie Prater MD Primary Care Provider [phone] Encounter Details Date Type Department Care Team (Late st Contact Info) Description 11/06/2020 Lab Requisition [facility] Pathology & Laboratory Medicine - [facility] [address] [place] [address] Renetta Velásquez, SOFT SHOE DANCER-C [address] [place] [phone] Encounter for general adult medical examination [...] Procedure Name Priority Date/Time Associated Diagnosis Comments HOLD LAVENDER TOP Today 11/06/2020 10: 05 EDT Encounter for general adult medical examination without abnormal findings Encounter for gynecological examination (general) (routine) without abnormal findings LIPID PROFILE (INCLUDES CHOLESTEROL, TRIGLYCERIDES, HDL, LDL) Today 11/06/2020 10:05 EDT Encounter for general adult medical examination without abnormal findings Encounter for gynecological examination (general) (routine) without abnormal findings COMPREHENSIVE METABOLIC PANEL (CMP) Today 11/06/2020 10:05 EDT Encounter for general adult medical examination without abnormal findings Encounter for gynecological examination (general) (routine) without abnormal findings documented in this encounter Results * HOLD LAVENDER TOP (11/06/2020 10:05 EDT) Hold Hold 11/06/2020 15:[address] [facility] Blood VENOUS BLOOD / Unknown 11/06/2020 10:05 EDT 11/06/2020 14:28 EDT Page Christen BENAVIDEZ-Kwasi LAB INFO SERVICE AND SUPPORT & PHONE RESULT [facility] [address] [place] [address] * LIPID PROFILE (INCLUDES CHOLESTEROL, TRIGLYCERIDES, HDL, LDL) (11/06/2020 10:05 EDT) Cholesterol 175 See Note mg/dL 11/06/2020 14:[address] [facility] Comment: Acceptable: ?<200 mg/dL Borderline High: 200-239 mg/dL High: ?> or = 240 mg/dL HDL 63 See Note mg/dL 11/06/2020 14:[address] [facility] Comment: Low: ? <40 mg/dL Normal: ??40-60 mg/dL High: ?>60 mg/dL LDL, Calculated 100 See Note mg/dL 11/06/2020 14:[address] [facility] Comment: Optimal: ? <100 mg/dL Near Optimal: ?100-129 mg/dL Borderline High: 130-159 mg/dL High: ?160-189 mg/dL Very High: ? > or = 190 mg/dL Triglyceride 58 See Note mg/dL 11/06/2020 14:50 [facility] Comment: Normal: ? <150 mg/dL Borderline High: ??150 - 199 mg/dL High: ? 200 - 499 mg/dL Very High: ?> or = 500 mg/dL Chol/HDL Ratio 2.8 See Note 11/06/2020 14:50 [facility] Comment:No reference range h as been established for CHOL/HDL ratio. Non HDL Cholesterol 112 See Note mg/dL 11/06/2020 14:50 [facility] Comment: Desirable: ?<130 mg/dL Borderline High: ??130-159 mg/dL High: ? 160-189 mg/dL Very High: ?> or = 190 mg/dL Blood VENOUS BLOOD / Unknown 11/06/2020 10:05 EDT 11/06/2020 14:28 EDT Renetta Velásquez SOFT SHOE DANCERHubert CHEMISTRY & BLOOD GA S ORDERABLES [facility] [address] [place] [address] * COMPREHENSIVE METABOLIC PANEL (CMP) (11/06/2020 10:05 EDT) Sodium 141 136 - 145 mmol/L 11/06/2020 14:[address] [facility] Potassium 4.5 3.5 - 5.0 mEq/L 11/06/2020 14:[address] [facility] Chloride 105 96 - 110 mEq/L 11/06/2020 14:50 [facility] CO2 Total 24 22 - 32 mEq/L 11/06/2020 14:50 [facility] Glucose 84 70 - 100 mg/dL 11/06/2020 14:50 [facility] BUN 12 10 - 26 mg/dL 11/06/2020 14:50 [facility] Creatinine 0.70 0.52 - 1.04 mg/dL 11/06/2020 14:50 [facility] eGFR 124 >60 mL/min/1.7 3m2 11/06/2020 14:50 [facility] Comment:eGFR calculated yanet villafana CKD-EPI equation for non- Americans. Multiply eGFR by 1.16 for patients. Total Protein 7.9 6.3 - 8.2 g/dL 11/06/2020 14:50 [facility] Albumin 4.7 3.4 - 4.9 g/dL 11/06/2020 14:50 [facility] Alkaline Phosphatase 84 38 - 126 U/L 11/06/2020 14:50 [facility] AST 26 15 - 46 U/L 11/06/2020 14:50 [facility] ALT 26 <35 U/L 11/06/2020 14:50 [facility] Bilirubin, Total <0.5 <1.4 mg/dL 11/07/19 14:50 [facility] Calcium 10.1 8.5 - 10.5 mg/dL 11/06/2020 14:50 [facility] Calculated Calcium 9.5 8.5 - 10.5 mg/dL 11/06/2020 14:50 [facility] Blood VENOUS BLOOD / Unknown 11/06/2020 10:05 EDT 11/06/2020 14:28 EDT Page Christen NAYAK CHEMISTRY & BLOOD GA S ORDERABLES [facility] [address] [place] [address] documented in this encounter Visit Diagnoses Diagnosis Encounter for general adult medical examination without abnormal findings Unspecified general medical examination Encounter for gynecological examination (general) (routine) without abnormal findings documented in this encounter Care Teams Operations Scheduler Relationship Specialty Start Date End Date Renetta Velásquez, REEMA-C [address] [facility] [address] [place] [address] PCP - General Family Medicine - [facility] Medicine 07/11/20 05/05/23 Lorrie Prater MD [address] [place] [address] PCP - General 05/06/23 documented as of this encounter
--- OUTSIDE RECORDS SUMMARY | 2023-11-24 15:18 | XMS_ITS | Encounter Summary ---
Author Organization [facility] Address [address] [place] [address] Care Team Providers Care Electrical Helper Name Role Phone Simona Ambriz NP Primary Care Provider Reason for Referral * Radiology Services (Routine) - Closed Specialty Diagnoses / Procedures Referred By Carlos castro Referred To Contact Radiology Diagnoses Goiter Multiple thyroid nodules Procedures RAD US NECK/THYROID Tessie Juarez MD [address] [place] [phone] [facility] Radiology [address] [place] [address] Referral ID Status Reason Start Date Expiration Date Visits Re quested Visits Authorized [id number] Closed 01/15/2016 1 1 Reason for Visit * Reason Onset Date Comments Pre-visit Orders 01/15/2016 Encounter Details Date Type Department Care Team (Late st Contact Info) Description 01/15/2016 Orders Only [facility] Pediatric Endocrinology - [facility] [place] [address] [place] [address] Jaida Hernandez, JAYLIN [address] [place] [address] Goiter (Primary Dx); Multiple thyroid nodules Social History Tobacco Use Types Packs/Day Years Used Date Smoking Tobacco: Never Assessed Sex and Gender Information Value Date Recorded Sex Assigned at Not on file Gender Identity Female 01/21/2020 16:11 EST Sexual Orientation Not on file documented as of this encounter Plan of Treatment Not on file documented as of this encounter Procedures Procedure Name Priority Date/Time Associated Diagnosis Comments RAD US NECK/THYROID Routine 04/16/2016 1 4:15 EST Goiter Multiple thyroid nodules documented in this encounter Results * RAD US NECK/THYROID (04/16/2016 14:15 EST) Anatomical Region Laterality Modality Other 04/16/2016 14:1 5 EST 04/16/2016 16:00 EST Narrative 04/16/2016 16:00 EST RAD US NECK/THYROID ??04/16/2016 2:15 PM Signs and Symptoms/Comments: ??E04.9-Nontoxic goiter, [id number]-CND-43 E04.2-Nontoxic multinodular zjzirx-AOL-22; goiter, multiple thyroid nodules Comparisons: ??None available Technique: Doppler, Still and Cine imaging of the Neck and Thyroid Via Ultrasound Findings: Right thyroid lobe: Mildly heterogeneous in echotexture, measuring 5.4 x 1.5 x 1.7 cm . ??There is a single cyst at the upper mesial aspect of the right thyroid lobe measuring 1 mm in diameter. Left thyroid lobe: Mildly heterogeneous in echotexture, measuring 4.2 x 1.4 x 1.0 cm ??. ??There are 2 cysts in the mid/lateral aspect of the left thyroid lobe, the 1st measures 0.2 x 0.1 x 0.1 cm, the 2nd measures 0.2 x 0.1 x 0.1 cm. Isthmus: measuring 0.3 cm Lymph nodes: Normal ??Bilaterally, ? Impression: 1. ??Tiny colloid cysts of the otherwise normal thyroid gland. No concerning abnormality identified. I have personally reviewed the images and the above interpretation and agree with the findings. Procedure Note Nii Nielsen MD - 04/16/2016 RAD US NECK/THYROID 04/16/2016 2:15 PM Signs and Symptoms/Comments: E04.9-Nontoxic goiter, [id number]-NEW-88 E04.2-Nontoxic multinodular lbvzzi-ODJ-23; goiter, multiple thyroid nodules Comparisons: None available Technique: Doppler, Still and Cine imaging of the Neck and Thyroid Via Ultrasound Findings: Right thyroid lobe: Mildly heterogeneous in echotexture, measuring 5.4 x 1.5 x 1.7 cm . There is a single cyst at the upper mesial aspect of the right thyroid lobe measuring 1 mm in diameter. Left thyroid lobe: Mildly heterogeneous in echotexture, measuring 4.2 x 1.4 x 1.0 cm . There are 2 cysts in the mid/lateral aspect of the left thyroid lobe, the 1st measures 0.2 x 0.1 x 0.1 cm, the 2nd measures 0.2 x 0.1 x 0.1 cm. Isthmus: measuring 0.3 cm Lymph nodes: Normal Bilaterally, Impression: 1. Tiny colloid cysts of the otherwise normal thyroid gland. No concerning abnormality identified. I have personally reviewed the images and the above interpretation and agree with the findings. Tessie Juarez MD IMG US ORDERABLES documented in this encounter Visit Diagnoses Diagnosis Goiter- Primary Goiter, unspecified Multiple thyroid nodules Nontoxic multinodular goiter documented in this encounter Care Teams Electrical Helper Relationship Specialty Start Date End Date Simona Ambriz NP PCP - General 10/01/15 06/04/18 documented as of this encounter
--- OUTSIDE RECORDS SUMMARY | 2023-11-24 15:18 | XMS_ITS | Encounter Summary ---
Author Organization [facility] Address [address] [place] [address] Care Team Providers Care Marine Scientist Name Role Phone Christen Renetta FAMILY PRACTITIONER-C Primary Care Provider [phone] Encounter Details Date Type Department Care Team (Latest Contact Info) Description 07/17/2020 12:00 EDT Phlebotomy Only [facility] Laboratory Services [facility] [address] [place] [phone] Encounter for general adult medical examination with abnormal findings; Dysthymic disorder; Generalized anxiety disorder; Chronic fatigue syndrome; Migraine without status migrainosus, not intractable, unspecified migraine type; Myalgia, unspecified site Social History Tobacco Use Types Packs/Day Years [...] 16:11 EST Sexual Orientation Not on file COVID-19 Exposure Response Date Recorded In the last month, have you been in contact with someone who was confirmed or suspected to have Coronavirus / COVID-19? No / Unsure 07/17/2020 11:54 EDT documented as of this encounter Plan of Treatment Not on file documented as of this encounter Procedures Procedure Name Priority Date/Time Associated Diagnosis Comments COMPLETE BLOOD COUNT AND DIFFERENTIAL Routine 07/17/2020 12:25 EDT Encounter for general adult medical examination with abnormal findings Dysthymic disorder Generalized anxiety disorder Chronic fatigue syndrome Migraine without status migrainosus, not intractable, unspecified migraine type Myalgia, unspecified site HEMOGLOBIN A1C Routine 07/17/2020 12:25 EDT Encounter for general adult medical examination with abnormal findings Dysthymic disorder Generalized anxiety disorder Chronic fatigue syndrome Migraine without status migrainosus, not intractable, unspecified migraine type Myalgia, unspecified site documented in this encounter Results * (ABNORMAL) COMPLETE BLOOD COUNT AND DIFFERENTIAL (07/17/2020 12:25 EDT) WBC 8.82 4.00 - 12.40 K/cmm 07/17/2020 14:52 [facility] RBC 4.53 3.86 - 5.04 M/cmm 07/17/2020 14:52 [facility] Hemoglobin 13.5 11.6 - 15.2 gm/dL 07/17/2020 14:52 [facility] HCT 40.8 34.9 - 44.4 % 07/17/2020 14:52 [facility] MCV 90 81 - 98 fl 07/17/2020 14:52 [facility] MCH 29.8 26.7 - 33.3 pg 07/17/2020 14:52 [facility] MCHC 33.1 32.1 - 35.9 gm/dL 07/17/2020 14:52 [facility] RDW-CV 13.2 <14.7 % 07/17/2020 14:52 [facility] RDW-SD 43.9 <50.4 fl 07/17/2020 14:52 [facility] PLT 271 141 - 377 K/cmm 07/17/2020 14:52 [facility] MPV 12.2 9.5 - 12.7 fl 07/17/2020 14:52 [facility] % Neutrophils 55.2 % 07/17/2020 14:52 [facility] % Lymphocytes 29.6 % 07/17/2020 14:52 [facility] % Monocytes 9.8 % 07/17/2020 14:52 [facility] % Eosinophils 4.1 % 07/17/2020 14:52 [facility] % Basophils 1.0 % 07/17/2020 14:52 [facility] % Immature Grans 0.3 % 07/18/19 14:52 [facility] Absolute Neutrophils 4.87 2.20 - 8.85 K/cmm 07/17/2020 14:52 [facility] Absolute Lymphocytes 2.61 1.09 - 3.30 K/cmm 07/17/2020 14:52 [facility] Absolute Monocytes 0.86(H) 0.10 - 0.80 K/cmm 07/17/2020 14:52 [facility] Absolute Eosinophils 0.36 0.03 - 0.61 K/cmm 07/17/2020 14:52 [facility] ABS Basophils 0.09 0.01 - 0.11 K/cmm 07/17/2020 14:52 [facility] Absolute Immature Grans 0.03 0.00 - 0.06 K/cmm 07/17/2020 14:52 [facility] Type of Differential: Auto 07/17/2020 14:52 [facility] Blood VENOUS BLOOD / Unknown Venipuncture / Unknown 07/17/2020 12:25 EDT 07/17/2020 12:25 EDT Marguerite Ritter PACKAGES & DNA PROBE ORDERABLES [facility] [address] [place] [address] * HEMOGLOBIN A1C (07/17/2020 12:25 EDT) Hemoglobin A1c 5.2 <5.7 % 07/17/2020 19:23 EDT [facility] Comment: New methodology in use 05/08/2020 Glycemic Status References: Normal: ??<5.7% Pre-Diabetes: ??5.7% - 6.4% Diagnostic of Diabetes: ??> or = 6.5% (if confirmed) Goals for glycemic control in diabetics (ADA 2017): <7.0% target for non adults with diabetes. <7.5% target for children and adolescents with Type I Diabetes. More or less stringent targets may be appropriate for individual patients. Est Avg Glucose 103 mg/dL 19:23 EDT [facility] Comment:The eAG represents t he A1c result expressed as average glucose in mg/dL. Blood VENOUS BLOOD / Unknown Venipuncture / Unknown 07/17/2020 12:25 EDT 07/17/2020 12:25 EDT Marguerite Ritter CHEMISTRY & BLOOD GA S ORDERABLES [facility] [address] [place] [address] documented in this encounter Visit Diagnoses Diagnosis Encounter for general adult medical examination with abnormal findings Unspecified general medical examination Dysthymic disorder Generalized anxiety disorder Chronic fatigue syndrome Migraine without status migrainosus, not intractable, unspecified migraine type Myalgia, unspecified site documented in this encounter Care Teams Marine Scientist Relationship Specialty Start Date End Date Renetta Velásquez, FAMILY PRACTITIONER-C [address] [place] [address] PCP - General Family Medicine - Hospital Medicine 07/11/20 05/05/23 documented as of this encounter
--- OUTSIDE RECORDS SUMMARY | 2023-11-24 15:18 | XMS_ITS | Encounter Summary ---
Author Organization [facility] Address [address] [place] [address] Care Team Providers Care Health It Specialist Name Role Phone Simona Ambriz OVERLAY PLASTICIAN Primary Care Provider [phone] Encounter Details Date Type Department Care Team (Latest Contact Info) Description 10/01/2015 17:15 EDT - 10/01/2015 23:59 EDT Hospital Encounter [address] [address] Idalmis Marie, [address] [address] Discharge Disposition: Home or Self Care Social History Tobacco Use Types Packs/Day Years Used Date Smoking Tobacco: Never Assessed Sex and Gender Information Value Date Recorded Sex Assigned at Not on file Gender Identity Female 01/21/2020 16:11 EST Sexual Orientation Not on file documented as of this encounter Discharge Diagnoses Diagnosis E04.9 Nontoxic goiter, unspecified-E04.9[ICD-10-CM] F32.9 Major depressive disorder, single episode, unspecified-F32.9[ICD-10-CM] R53.83 Other fatigue-R53.83[ICD-10-CM] K30 Functional dyspepsia-K30[ICD-10-CM] documented in this encounter Discharge Disposition Disposition Code Departure Means Destination Home or Self Shelter documented in this encounter Plan of Treatment Not on file documented as of this encounter Procedures Procedure Name Priority Date/Time Associated Diagnosis Comments VITAMIN D (25,OH) Routine 10/01/2015 17: 58 EDT SED RATE Routine 10/01/2015 17:58 EDT COMPLETE BLOOD COUNT AND DIFFERENTIAL Routine 10/01/2015 17:58 EDT THYROID ANTIBODIES Routine 10/01/2015 17 :58 EDT IRON Routine 10/01/2015 17:58 EDT FERRITIN Routine 10/01/2015 17:58 EDT VITAMIN B12 Routine 10/01/2015 17:58 EDT documented in this encounter Results * VITAMIN D (25,OH) (10/01/2015 17:58 EDT) 25OH Vitamin D Tot 34.1 30 - 100 ng/ml 10/02/2015 13:10 EDT [facility] Comment: Reference Range: Deficient = <10 ng/ml Insufficient = 10-30 ng/ml Sufficient = 30-100 ng/ml Toxic = >100 ng/ml BLOOD SPECIMEN / Unknown 10/01/2015 17:58 EDT 10/01/2015 18:28 EDT Idalmis Marie GEAR ROOM KEEPER CHEMISTRY & BLOOD G ORDERABLES [facility] [address] [place] [id number] * THYROID ANTIBODIES (10/01/2015 17:58 EDT) Thyroglobulin Ab 19 <61 U/mL 10/01/19 16 20:08 EDT [facility] Thyroperoxidase Ab 40 <61 U/mL 2015 20:08 EDT [facility] BLOOD SPECIMEN / Unknown 10/01/2015 17:58 EDT 10/01/2015 18:28 EDT Idalmis Marie GEAR ROOM KEEPER CHEMISTRY & BLOOD G ORDERABLES Performing Organization Address City/[facility]/ZIP Co de Phone Number [facility] [address] [place] [address] * SED. RATE:WESTERGREN (10/01/2015 17:58 EDT) Pathologist [facility] Sed. Rate Westergren 7 0 - 20 mm/hr 10/01/2015 18:41 EDT [facility] BLOOD SPECIMEN / Unknown 10/01/2015 17:58 EDT 10/01/2015 18:28 EDT Idalmis M Cynthia GEAR ROOM KEEPER HEMATOLOGY & PF4 OR DERABLES Performing Organization Address [place]/[facility] Co de Phone Number [facility] [address] [place] [address] * (ABNORMAL) IRON (10/01/2015 17:58 EDT) [facility] Iron 44(L) 50 - 170 ug/dl 10/01/2015 19:27 EDT [facility] BLOOD SPECIMEN / Unknown 10/01/2015 17:58 EDT 10/01/2015 18:28 EDT Idalmis Marie GEAR ROOM KEEPER CHEMISTRY & BLOOD G ORDERABLES Performing Organization Address [place]/[facility]/ZIP Co de Phone Number [facility] [address] [place] [address] * FERRITIN (10/01/2015 17:58 EDT) [facility] Ferritin 66 10 - 291 ng/ml 10/01/2015 20:08 EDT [facility] BLOOD SPECIMEN / Unknown 10/01/2015 17:58 EDT 10/01/2015 18:28 EDT Idalmis Marie GEAR ROOM KEEPER CHEMISTRY & BLOOD G ORDERABLES Performing Organization Address City/[facility]/ZIP Co de Phone Number [facility] [address] [place] [address] * HEMAGRAM AND DIFFERENTIAL (10/01/2015 17:58 EDT) WBC 9.58 4.6 - 11.2 K/cmm 10/01/2015 18:43 [facility] RBC 4.38 4.10 - 5.10 M/cmm 10/01/2015 18:43 [facility] Hemoglobin 13.5 12.0 - 16.0 gm/dl 10/01/2015 18:43 [facility] HCT 39.6 36.0 - 46.0 % 10/01/2015 18:43 [facility] MCV 90 78 - 102 fl 10/01/2015 18:43 [facility] MCH 30.8 pg 10/01/2015 18:43 [facility] MCHC 34.1 gm/dl 10/01/2015 18:43 [facility] RDW-CV 12.3 % 10/01/2015 18:43 [facility] RDW-SD 40.4 fl 10/01/2015 18:43 [facility] PLT 218 156 - 312 K/cmm 10/01/2015 18:43 [facility] MPV 13.0 fl 10/01/2015 18:43 [facility] % Neutrophils 38.8 % 10/01/2015 18:43 [facility] % Lymphocytes 42.3 % 10/01/2015 18:43 [facility] % Monocytes 8.8 % 10/01/2015 18:43 [facility] % Eosinophils 8.9 % 10/01/2015 18:43 [facility] % Basophils 1.1 % 10/01/2015 18:43 [facility] % Immature Grans 0.1 % 10/01/2015 18:43 [facility] ABS Neutrophils 3.72 K/cmm 6 18:43 [facility] ABS Lymphs 4.05 K/cmm 10/01/2015 18:43 [facility] ABS Monocytes 0.84 K/cmm 10/01/2015 18:43 [facility] ABS Eosinophils 0.85 K/cmm 6 18:43 EDT [facility] ABS Basophils 0.11 K/cmm 10/01/2015 18:43 EDT [facility] ABS Immature Grans 0.01 K/cmm 10/01/2015 18:43 EDT [facility] Type of Diff: Automated 10/01/2015 18:43 EDT [facility] BLOOD SPECIMEN / Unknown 10/01/2015 17:58 EDT 10/01/2015 18:28 EDT Idalmis Marie GEAR ROOM KEEPER PACKAGES & DNA PROB E ORDERABLES Performing Organization Address City/[facility]/ZIP Co de Phone Number [facility] [address] [place] [address] * VITAMIN B12 (10/01/2015 17:58 EDT) Vitamin B-12 703 211 - 911 pg/ml 10/01/2015 20:08 EDT [facility] BLOOD SPECIMEN / Unknown 10/01/2015 17:58 EDT 10/01/2015 18:28 EDT Idalmis Marie GEAR ROOM KEEPER CHEMISTRY & BLOOD G ORDERABLES Performing Organization Address City/[facility] Co de Phone Number [facility] [address] [place] [address] documented in this encounter Visit Diagnoses Not on filedocumented in this encounter Care Teams Health It Specialist Relationship Specialty Start Date End Date Simona Ambriz NP PCP - General 10/01/15 06/04/18 documented as of this encounter
--- OUTSIDE RECORDS SUMMARY | 2023-11-24 15:18 | XMS_ITS | Encounter Summary ---
Author Organization [facility] Address [address] [place] [address] Care Team Providers Care Timber Selector Name Role Phone Simona Ambriz NP Primary Care Provider [phone] Encounter Details Date Type Department Care Team (Late st Contact Info) Description 12/04/2015 Results Only Imaging [facility]ISM [phone] Unknown, Provider, Social History Tobacco Use Types Packs/Day Years Used Date Smoking Tobacco: Never Assessed Sex and Gender Information Value Date Recorded Sex Assigned at Not on file Gender Identity Female 01/21/2020 16:11 EST Sexual Orientation Not on file documented as of this encounter Plan of Treatment Pending Results Name Type Priority Associated Diagnoses Date /Time OUTSIDE IMAGES - US BODY Imaging 12/04/2015 12:22 EDT documented as of this encounter Visit Diagnoses Not on filedocumented in this encounter Care Teams Timber Selector Relationship Specialty Start Date End Date Simona Ambriz NP PCP - General 10/01/15 06/04/18 documented as of this encounter
--- OUTSIDE RECORDS SUMMARY | 2023-11-24 15:18 | XMS_ITS | Encounter Summary ---
Author Organization [facility] Address [address] [place] [address] Care Team Providers Care Clock Smith Name Role Phone Simona Ambriz NP Primary Care Provider [phone] Reason for Visit * Reason Onset Date Comments Pre-visit Orders 11/12/2015 Encounter Details Date Type Department Care Team (Late st Contact Info) Description 11/12/2015 Orders Only [facility] Pediatric Endocrinology - [facility] [address] [place] [address] Jaida Hernandez, JAYLIN [address] [place] [address] Thyromegaly (Primary Dx) Social History Tobacco Use Types Packs/Day Years Used Date Smoking Tobacco: Never Assessed Sex and Gender Information Value Date Recorded Sex Assigned at Not on file Gender Identity Female 01/21/2020 16:11 EST Sexual Orientation Not on file documented as of this encounter Plan of Treatment Not on file documented as of this encounter Visit Diagnoses Diagnosis Thyromegaly- Primary Goiter, unspecified documented in this encounter Care Teams Clock Smith Relationship Specialty Start Date End Date Simona Ambriz NP PCP - General 10/01/15 06/04/18 documented as of this encounter
--- OUTSIDE RECORDS SUMMARY | 2023-11-24 15:18 | XMS_ITS | Encounter Summary ---
Author Organization [facility] Address [address] [place] [address] Care Team Providers Care Contract Loader Name Role Phone Unavailable Primary Care Provider Unavailabl e Encounter Details Date Type Department Care Team (Late st Contact Info) Description 06/11/[address] [facility]- PRISM [phone] Simona Ambriz, REEMA [address] [place] [phone] Social History Tobacco Use Types Packs/Day Years Used Date Smoking Tobacco: Never Assessed Sex and Gender Information Value Date Recorded Sex Assigned at Not on file Gender Identity Female 01/21/2020 16:11 EST Sexual Orientation Not on file documented as of this encounter Plan of Treatment Not on file documented as of this encounter Procedures Procedure Name Priority Date/Time Associated Diagnosis Comments BACTERIAL CULTURE, URINE Routine 06/11/2014 10:15 EDT documented in this encounter Results * BACTERIAL CULTURE, URINE (06/11/2014 10:15 EDT) Result Greater than 100,000 CFU/ml ESCHERICHIA COLI 06/12/2014 13:52 EDT [facility] URINE / Unknown 06/11/2014 1 0:15 EDT 06/11/2014 22:33 EDT Narrative Organism Antibiotic Method Susceptibility Greater than 100,000 cfu/ml escherichia coli Ampicillin SUSCEPTIBILITY (GERRI) 8: Susceptible Greater than 100,000 cfu/ml escherichia coli Gentamicin SUSCEPTIBILITY (GERRI) <=1: Susceptible Greater than 100,000 cfu/ml escherichia coli Trimethoprim-Sulfameth oxazole SUSCEPTIBILITY (GERRI) <=20: Susceptible Greater than 100,000 cfu/ml escherichia coli Nitrofurantoin SUSCEPTIBILITY (GERRI) 32: Susceptible Greater than 100,000 cfu/ml escherichia coli Tobramycin SUSCEPTIBILITY (GERRI) <=1: Susceptible Greater than 100,000 cfu/ml escherichia coli Amikacin SUSCEPTIBILITY (GERRI) <=2: Susceptible Greater than 100,000 cfu/ml escherichia coli Ceftriaxone SUSCEPTIBILITY (GERRI) <=1: Susceptible Greater than 100,000 cfu/ml escherichia coli Ciprofloxacin SUSCEPTIBILITY (GERRI) <=0.25: Susceptible Greater than 100,000 cfu/ml escherichia coli Piperacillin Tazobactam SUSCEPTIBILITY (GERRI) <=4: Susceptible Greater than 100,000 cfu/ml escherichia coli Meropenem SUSCEPTIBILITY (GERRI) <=0.25: Susceptible Greater than 100,000 cfu/ml escherichia coli Ertapenem SUSCEPTIBILITY (GERRI) <=0.5: Susceptible Simona Ambriz NP MICROBIOLOGY - GENER AL ORDERABLES [facility] [address] [place] [address] documented in this encounter Visit Diagnoses Not on filedocumented in this encounter
--- OUTSIDE RECORDS SUMMARY | 2023-11-24 15:18 | XMS_ITS | Encounter Summary ---
Author Organization [facility] Address [address] [place] [address] Care Team Providers Care Learning Officer Name Role Phone Johanny Alexandre LOAN TELLER Primary Care Provider [phone] Encounter Details Date Type Department Care Team (Latest Contact Info) Description 08/06/2015 18:51 EDT - 08/06/2015 18:53 EDT Hospital Encounter [facility] - [address] [address] Simona Ambriz NP [address] [place] [address] [address] [place] [address] Discharge Disposition: Home or Self Care Social History Tobacco Use Types Packs/Day Years Used Date Smoking Tobacco: Never Assessed Sex and Gender Information Value Date Recorded Sex Assigned at Not on file Gender Identity Female 01/21/2020 16:11 EST Sexual Orientation Not on file documented as of this encounter Discharge Diagnoses Diagnosis 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
--- OUTSIDE RECORDS SUMMARY | 2023-11-24 15:18 | XMS_ITS | Encounter Summary ---
Author Organization [facility] Address [address] [place] [address] Care Team Providers Care Mortgage Clerk Name Role Phone Patience Coreas OPERATOR ASSISTANT I CEMENTING-C Primary Care Provider [phone] Encounter Details Date Type Department Care Team (Latest Contact Info) Description 01/21/2020 Transcribe Orders [facility] [address] [place] [address] Patience Coreas, OPERATOR ASSISTANT I CEMENTING-C [address] [place] [phone] Contact with and (suspected) exposure to other viral communicable diseases (Primary Dx) Social History Tobacco Use Types [...] on file documented as of this encounter Results * COVID-19 TESTING (01/22/2020 9:55 EST) COVID-19 rt-PCR Result Negative Negative 01/23/2020 15:46 EST [facility] Comment: Negative results do not preclude 2019-nCoV infection and should not be used as the sole basis for treatment or other patient management decisions. Negative results must be combined with clinical observations, patient history, and epidemiological information. This test was developed and its performance characteristics determined by [facility]. It has not been cleared or approved by the [place] Food and Drug Administration. FDA does not require this test to go through premarket FDA review. This test is used for clinical purposes. It should not be regarded as investigational or for research. This laboratory is certified under the Clinical Laboratory Improvement Amendments (CLIA) as qualified to perform high complexity clinical laboratory testing. This test is based on the CDC COVID-19 Emergency Use Authorization (EUA) assay, with minor modification as defined by the FDA Performed on the [employer] 7 Flex. Performing Lab [employer] 7 [facility] 01/23/2020 15:46 EST [facility] Swab ENTIRE NASOPHARYNX / Unknown Swab / Unknown 01/22/2020 9:55 EST 01/22/2020 9:55 EST Patience FLORES MICROBIOLOGY - GENE RAL ORDERABLES Performing Organization Address City/State/[facility] Co de Phone Number [facility] [address] [place] [address] documented in this encounter Visit Diagnoses Diagnosis Contact with and (suspected) exposure to other viral communicable diseases- Primary documented in this encounter Care Teams Mortgage Clerk Relationship Specialty Start Date End Date Patience Coreas FNP-C PCP - General 09/27/19 07/10/20 documented as of this encounter
--- OUTSIDE RECORDS SUMMARY | 2023-11-24 15:18 | XMS_ITS | Encounter Summary ---
Author Organization [facility] Address [address] [place] [address] Care Team Providers Care Manager Trade Marketing Name Role Phone Lucie Hilton MD Primary Care Provider [phone] Patience Coreas ASPHALT MIXER-C Primary Care Provider [phone] Renetta Velásquez BILLPOSTER-C Primary Care Provider [phone] Lorrie Prater MD Primary Care Provider Encounter Details Date Type Department Care Team (Late st Contact Info) Description 09/13/2019 Lab Requisition [facility] Pathology & Laboratory Medicine - [facility] [address] [place] [address] Patience Coreas, ASPHALT MIXER-C [address] [place] [phone] Encounter for general adult medical examination without abnormal findings Social History Tobacco Use Types Packs/Day Years Used Date Smoking Tobacco: Never Assessed Interpersonal Safety Answer Date Record ed Physically [...] Procedure Name Priority Date/Time Associated Diagnosis Comments THYROID CASCADE Today 09/13/2019 9:05 EDT Encounter for general adult medical examination without abnormal findings SYPHILIS SEROLOGY Today 09/13/2019 9:0 5 EDT Encounter for general adult medical examination without abnormal findings HEPATITIS C AB W REFLEX TO HCV RNA BY PCR Today 09/13/2019 9:05 EDT Encounter for general adult medical examination without abnormal findings HEPATITIS A ANTIBODY IGM Today 09/13/2019 9:05 EDT Encounter for general adult medical examination without abnormal findings HEPATITIS A TOTAL ANTIBODY W REFLEX Today 09/13/2019 9:05 EDT Encounter for general adult medical examination without abnormal findings HEPATITIS B SURFACE ANTIBODY Today 09/13/2019 9:05 EDT Encounter for general adult medical examination without abnormal findings COMPLETE BLOOD COUNT Today 09/13/2019 9:05 EDT Encounter for general adult medical examination without abnormal findings HIV 1/2 ANTIGEN AND ANTIBODY, 4TH GENERATION Today 09/13/2019 9:05 EDT Encounter for general adult medical examination without abnormal findings LIPID PROFILE (INCLUDES CHOLESTEROL, TRIGLYCERIDES, HDL, LDL) Today 09/13/2019 9:05 EDT Encounter for general adult medical examination without abnormal findings COMPREHENSIVE METABOLIC PANEL (CMP) Today 09/13/2019 9:05 EDT Encounter for general adult medical examination without abnormal findings documented in this encounter Results * HEPATITIS A ANTIBODY IGM (09/13/2019 9:05 EDT) Hepatitis A Antibody, IgM Negative Negative 09/14/2019 16:10 EDT [facility] Blood VENOUS BLOOD / Unknown 09/13/2019 9:05 EDT 09/13/2019 15:16 EDT Narrative [facility] - 09/14/2019 16:10 EDT The results of this assay can be falsely lowered due to the consumption of Biotin. Patience PATELP-C CHEMISTRY & BLOOD G ORDERABLES Performing Organization Address City/State/[facility] Co de Phone Number [facility] [address] [place] [address] * HIV 1/2 ANTIGEN AND ANTIBODY, 4TH GENERATION (09/13/2019 9:05 EDT) Pathologist [facility] HIV 1 and 2 Antibody/p24 Antigen, 4th Generation Negative Negative 09/14/2019 10:13 EDT [facility] Comment: If acute HIV-1 infection is suspected in a high risk ??patient, submit plasma specimen for HIV-1 RNA quantitation test. Fourth Generation assay performed on the Siemens Centaur. Blood VENOUS BLOOD / Unknown 09/13/2019 9:05 EDT 09/13/2019 15:16 EDT Patience ÁLVAREZ-C IMMUNOLOGY AND SERO LOGY ORDERABLES Performing Organization Address [facility] Co de Phone Number [facility] [address] [place] [address] * (ABNORMAL) COMPLETE BLOOD COUNT (09/13/2019 9:05 EDT) [facility] WBC 9.43 4.00 - 12.40 K/cmm 09/13/2019 15:41 EDT [facility] RBC 4.48 3.86 - 5.04 M/cmm 09/13/2019 15:41 [facility] Hemoglobin 13.4 11.6 - 15.2 gm/dL 09/13/2019 15:41 [facility] HCT 41.2 34.9 - 44.4 % 09/13/2019 15:41 [facility] MCV 92 81 - 98 fl 09/13/2019 15:41 [facility] MCH 29.9 26.7 - 33.3 pg 09/13/2019 15:41 [facility] MCHC 32.5 32.1 - 35.9 gm/dL 09/13/2019 15:41 [facility] RDW-CV 13.2 <14.7 % 09/13/2019 15:41 [facility] RDW-SD 45.1 <50.4 fl 09/13/2019 15:41 EDT [facility] PLT 274 141 - 377 K/cmm 09/13/2019 15:41 EDT [facility] MPV 12.8(H) 9.5 - 12.7 fl 09/13/2019 15:41 EDT [facility] Blood VENOUS BLOOD / Unknown 09/13/2019 9:05 EDT 09/13/2019 15:16 EDT Patience PATELP-C HEMATOLOGY & PF4 OR DERABLES Performing Organization Address City/[facility]/ZIP Co de Phone Number [facility] [address] [place] [address] * SYPHILIS SEROLOGY (09/13/2019 9:05 EDT) Syphilis Serology Negative Negative 09/14/2019 10:45 EDT [facility] Blood VENOUS BLOOD / Unknown 09/13/2019 9:05 EDT 09/13/2019 15:16 EDT Patience PATELP-C IMMUNOLOGY AND SERO LOGY ORDERABLES Performing Organization Address [facility] Co de Phone Number [facility] [address] [place] [address] * HEPATITIS C AB W REFLEX TO HCV RNA BY PCR (09/13/2019 9:05 EDT) Hep C Antibody Negative Negative 09/14/2019 10:21 EDT [facility] Blood VENOUS BLOOD / Unknown 09/13/2019 9:05 EDT 09/13/2019 15:16 EDT Patience PATELP-C CHEMISTRY & BLOOD G ORDERABLES Performing Organization Address [facility] Co de Phone Number [facility] [address] [place] [address] * HEPATITIS B SURFACE ANTIBODY (09/13/2019 9:05 EDT) Hep B Surface Ab, Quantitative 3.8 See Note mIU/mL 09/14/2019 9:26 EDT [facility] Comment: Reference Range for Hep B Surface Ab, Quant: Positive: >= 10.0 mIU/mL Negative: ??< 10.0 mIU/mL Patient is presumed to not be immune to infection with Hepatitis B Virus. Hep B Surface Ab, Qualitative Negative See Note 09/14/2019 9:26 EDT [facility] Comment: Reference Range for Hep B Surface Ab, Qual: Unvaccinated: ??Negative Vaccinated: ??Positive Blood VENOUS BLOOD / Unknown 09/13/2019 9:05 EDT 09/13/2019 15:16 EDT Patience Coreas ASPHALT MIXER-C CHEMISTRY & BLOOD G ORDERABLES Performing Organization Address [facility] Co de Phone Number [facility] [address] [place] [address] * (ABNORMAL) HEPATITIS A TOTAL ANTIBODY W REFLEX (09/13/2019 9:05 EDT) Hepatitis A Antibody, Total Positive(A ) Negative 09/14/2019 10:27 EDT [facility] Blood VENOUS BLOOD / Unknown 09/13/2019 9:05 EDT 09/13/2019 15:16 EDT Narrative [facility] - 09/14/2019 10:27 EDT The result of this assay can be falsely elevated (Positive) due to the consumption of Biotin. Patience Coreas ASPHALT MIXER-C CHEMISTRY & BLOOD G ORDERABLES Performing Organization Address [facility] Co de Phone Number [facility] [address] [place] [address] * THYROID CASCADE (09/13/2019 9:05 EDT) TSH 2.55 0.47 - 4.68 uIU/mL 09/13/2019 16:17 EDT [facility] Blood VENOUS BLOOD / Unknown 09/13/2019 9:05 EDT 09/13/2019 15:16 EDT Narrative [facility] - 09/13/2019 16:17 EDT NOTE: TSH [place] is not recommended for patients in which pituitary or hypothalamic disorders are suspected. The results of this assay can be falsely lowered due to the consumption of Biotin. Patience Coreas ASPHALT MIXER-C CHEMISTRY & BLOOD G ORDERABLES [facility] [address] [place] [address] * LIPID PROFILE (INCLUDES CHOLESTEROL, TRIGLYCERIDES, HDL, LDL) (09/13/2019 9:05 EDT) [facility] Signature Cholesterol 219 See Note mg/dL 09/13/2019 15:43 EDT [facility] Comment: Acceptable: ?<200 mg/dL Borderline High: 200-239 mg/dL High: ?> or = 240 mg/dL HDL 60 See Note mg/dL 09/13/2019 15:43 [facility] Comment: Low: ? <40 mg/dL Normal: ??40-60 mg/dL High: ?>60 mg/dL LDL, Calculated 140 See Note mg/dL 09/13/2019 15:43 [facility] Comment: Optimal: ? <100 mg/dL Near Optimal: ?100-129 mg/dL Borderline High: 130-159 mg/dL High: ?160-189 mg/dL Very High: ? > or = 190 mg/dL Triglyceride 94 See Note mg/dL 09/13/2019 15:43 [facility] Comment: Normal: ? <150 mg/dL Borderline High: ??150 - 199 mg/dL High: ? 200 - 499 mg/dL Very High: ?> or = 500 mg/dL Chol/HDL Ratio 3.7 See Note 09/13/2019 15:43 [facility] Comment:No reference range h as been established for CHOL/HDL ratio. Non HDL Cholesterol 159 See Note mg/dL 09/13/2019 15:43 [facility] Comment: Desirable: ?<130 mg/dL Borderline High: ??130-159 mg/dL High: ? 160-189 mg/dL Very High: ?> or = 190 mg/dL Blood VENOUS BLOOD / Unknown 09/13/2019 9:05 EDT 09/13/2019 15:16 EDT Patience Coreas ASPHALT MIXER-C CHEMISTRY & BLOOD G ORDERABLES [facility] [address] [place] [address] * COMPREHENSIVE METABOLIC PANEL (CMP) (09/13/2019 9:05 EDT) Sodium 140 136 - 145 mEq/L 09/13/2019 15:43 [facility] Potassium 4.4 3.5 - 5.0 mEq/L 09/13/2019 15:43 [facility] Chloride 103 96 - 110 mEq/L 09/13/2019 15:43 [facility] CO2 Total 25 22 - 32 mEq/L 09/13/2019 15:43 [facility] Glucose 88 70 - 100 mg/dL 09/13/2019 15:43 [facility] BUN 11 10 - 26 mg/dL 09/13/2019 15:43 [facility] Creatinine 0.64 0.52 - 1.04 mg/dL 09/13/2019 15:43 [facility] eGFR 129 >60 mL/min/1.7 3m2 09/13/2019 15:43 [facility] Comment:eGFR calculated yanet villafana CKD-EPI equation for non- Americans. Multiply eGFR by 1.16 for patients. Total Protein 7.9 6.3 - 8.2 g/dL 09/13/2019 15:43 [facility] Albumin 4.5 3.4 - 4.9 g/dL 09/13/2019 15:43 [facility] Alkaline Phosphatase 67 38 - 126 U/L 09/13/2019 15:43 EDT [facility] AST 24 15 - 46 U/L 09/13/2019 15:43 EDT [facility] ALT 18 <35 U/L 09/13/2019 15:43 EDT [facility] Bilirubin, Total <0.5 <1.4 mg/dL 09/13/19 20 15:43 EDT [facility] Calcium 9.9 8.5 - 10.5 mg/dL 09/13/2019 15:43 EDT [facility] Calculated Calcium 9.5 8.5 - 10.5 mg/dL 09/13/2019 15:43 EDT [facility] Blood VENOUS BLOOD / Unknown 09/13/2019 9:05 EDT 09/13/2019 15:16 EDT Patience PATELP-C CHEMISTRY & BLOOD G ORDERABLES Performing Organization Address City/State/[facility] Co de Phone Number [facility] [address] [place] [address] documented in this encounter Visit Diagnoses Diagnosis Encounter for general adult medical examination without abnormal findings Unspecified general medical examination documented in this encounter Care Teams Manager Trade Marketing Relationship Specialty Start Date End Date Lucie Hilton MD [address] [phone] PCP - General 06/05/18 09/26/19 Patience Coreas FNP-C [address] [phone] PCP - General 09/27/19 07/10/20 Renetta Velásquez NP-C [address] [phone] PCP - General Family Medicine - [facility] 07/11/20 05/05/23 Lorrie Prater MD [address] [place] [phone] PCP - General 05/06/23 documented as of this encounter
--- OUTSIDE RECORDS SUMMARY | 2023-11-24 15:18 | XMS_ITS | Encounter Summary ---
Author Organization [facility] Address [address] [place] [address] Care Team Providers Care Automation/Controls Manager Name Role Phone Simona Ambriz NP Primary Care Provider Encounter Details Date Type Department Care Team (Late st Contact Info) Description 10/01/2015 Phlebotomy Only [address] [address] Segmental Paver Installer, Outpatient Social History Tobacco Use Types Packs/Day Years Used Date Smoking Tobacco: Never Assessed Sex and Gender Information Value Date Recorded Sex Assigned at Not on file Gender Identity Female 01/21/2020 16:11 EST Sexual Orientation Not on file documented as of this encounter Plan of Treatment Not on file documented as of this encounter Visit Diagnoses Not on filedocumented in this encounter Care Teams Automation/Controls Manager Relationship Specialty Start Date End Date Simona Ambriz NP PCP - General 10/01/15 06/04/18 documented as of this encounter
--- OUTSIDE RECORDS SUMMARY | 2023-11-24 15:18 | XMS_ITS | Encounter Summary ---
Author Organization [facility] Address [address] [place] [address] Care Team Providers Care Accounting Specialist Name Role Phone Patience Coreas-C Primary Care Provider Encounter Details Date Type Department Care Team (Latest Contact Info) Description 09/27/2019 Travel Social History Tobacco Use Types Packs/Day Years [...] have Coronavirus / COVID-19? No / Unsure 09/27/2019 15:36 EDT documented as of this encounter Plan of Treatment Not on file documented as of this encounter Visit Diagnoses Not on filedocumented in this encounter Care Teams Accounting Specialist Relationship Specialty Start Date End Date Patience Coreas FNP-C PCP - General 09/27/19 07/10/20 documented as of this encounter
--- OUTSIDE RECORDS SUMMARY | 2023-11-24 15:18 | XMS_ITS | Encounter Summary ---
Author Organization [facility] Address [address] [place] [address] Care Team Providers Care Rotating Equipment Specialist Name Role Phone Renetta Velásquez STATISTICAL CLERK-C Primary Care Provider Reason for Referral * Radiology Services (Routine) - Closed Specialty Diagnoses / Procedures Referred By Carlos castro Referred To Contact Radiology Diagnoses Benign neoplasm of pineal gland (HCC-CMS) Procedures MR HEAD W WO CONTRAST Renetta Velásquez NP-C [address] [place] [phone] Referral ID Status Reason Start Date Expiration Date Visits Re quested Visits Authorized [id number] Closed 09/18/2020 03/17/2021 1 1 Reason for Visit * Radiology Services (Routine) - Closed Specialty Diagnoses / Procedures Referred By Carlos castro Referred To Contact Radiology Diagnoses Benign neoplasm of pineal gland (HCC-CMS) Procedures MR HEAD W WO CONTRAST Renetta Velásquez NP-C [address] [place] [phone] Referral ID Status Reason Start Date Expiration Date Visits Re quested Visits Authorized [id number] Closed 09/18/2020 03/17/2021 1 1 Encounter Details Date Type Department Care Team (Latest Contact Info) Description 09/20/2020 11:46 EDT - 09/20/2020 23:59 EDT Hospital Encounter [facility] Radiology MRI - Main [place] [address] [place] [id number] Benign neoplasm of pineal gland (HCC-CMS) Discharge Disposition: Home or Self Care Social [...] have Coronavirus / COVID-19? No / Unsure 09/20/2020 11:46 EDT documented as of this encounter Medications at [...] Procedure Name Priority Date/Time Associated Diagnosis Comments HEAD W WO CONTRAST Routine 09/20/2020 13:03 EDT Benign neoplasm of pineal gland (HCC-CMS) documented in this encounter Results * MR HEAD W WO CONTRAST (09/20/2020 13:03 EDT) Anatomical Region Laterality Modality Head Magnetic Resonan ce 09/20/2020 14:0 5 EDT Impressions 09/20/2020 14:05 EDT Pineal region cyst measuring up to 17 mm which is overall fairly simple appearance except for an area of slightly thicker amorphous enhancement at the posterior aspect. The lesion is again favored represent a pineal cyst, although given the size above 15 mm and the slightly thicker enhancement posteriorly, follow-up MRI with contrast is recommended in 12 months to ensure stability. Narrative 09/20/2020 14:05 EDT EXAM: MRI HEAD WO/W CONTRAST HISTORY: follow up TECHNIQUE: MRI head without and with intravenous gadolinium contrast. Structured report code: [id number] COMPARISON: Head CT 09/09/2020 FINDINGS: PARENCHYMA: Again seen is the pineal region cyst which measures 15 x 17 x 10 mm (AP X TRV X CC). It has a predominantly simple appearance with thin peripheral enhancement except for the posterior aspect which has slightly thicker amorphous enhancement. No associated diffusion restriction. No evidence of infarction. No parenchymal hemorrhage. No midline shift. No abnormal enhancement. EXTRA-AXIAL SPACES: No extra-axial collection. No extra-axial mass. VENTRICLES: No hydrocephalus. VESSELS: The flow voids and intravascular enhancement are normal. BONES: Unremarkable. ORBITS: No significant abnormality. PARANASAL SINUSES/MASTOID AIR CELLS: Predominantly clear. EXTRACRANIAL SOFT TISSUES: Unremarkable. Procedure Note Carlito Diaz MD - 09/20/2020 EXAM: MRI HEAD WO/W CONTRAST HISTORY: follow up TECHNIQUE: MRI head without and with intravenous gadolinium contrast.Structured report code: [id number] COMPARISON: Head CT 09/09/2020 FINDINGS: PARENCHYMA: Again seen is the pineal region cyst which measures 15 x 17 x 10 mm (AP XTRV X CC). It has a predominantly simple appearance with thin peripheralenhancement except for the posterior aspect which has slightly thickeramorphous enhancement. No associated diffusion restriction. No evidence of infarction. No parenchymal hemorrhage. No midline shift. Noabnormal enhancement. EXTRA-AXIAL SPACES: No extra-axial collection. No extra-axial mass. VENTRICLES: No hydrocephalus. VESSELS: The flow voids and intravascular enhancement are normal. BONES: Unremarkable. ORBITS: No significant abnormality. PARANASAL SINUSES/MASTOID AIR CELLS: Predominantly clear. EXTRACRANIAL SOFT TISSUES: Unremarkable. IMPRESSION Pineal region cyst measuring up to 17 mm which is overall fairly simpleappearance except for an area of slightly thicker amorphous enhancement atthe posterior aspect. The lesion is again favored represent a pineal cyst,although given the size above 15 mm and the slightly thicker enhancementposteriorly, follow-up MRI with contrast is recommended in 12 months toensure stability. Renetta NAYAK IMG MRI ORDERABLES documented in this encounter Visit Diagnoses Diagnosis Benign neoplasm of pineal gland (HCC-CMS) Benign neoplasm of pineal gland documented in this encounter Administered Medications Inactive Administered Medications - up to 3 most recent administrations Medication Order MAR Action Action Date Dose Rate Site gadoterate meglumine solution 7.5 mmol 7.5 mmol (15 mL), intravenous, Once in imaging, 1 dose, Starting on 09/20/20 at 1202, Until 09/20/20 at 1303, Routine Given 09/20/2020 13:03 EDT 10 mL IV documented in this encounter Orders Medications Ordered That Marty ht Not Have Been Administered Count Last Ordered Date First Ordered Date gadoterate meglumine solution 7.5 mmol 1 documented in this encounter Care Teams Rotating Equipment Specialist Relationship Specialty Start Date End Date Renetta Velásquez, MALINI [address] [facility] [address] [place] [phone] PCP - General Family Medicine - [facility] Medicine 07/11/20 05/05/23 documented as of this encounter
--- OUTSIDE RECORDS SUMMARY | 2023-11-24 15:18 | XMS_ITS | Encounter Summary ---
Author Organization [facility] Address [address] [place] [address] Care Team Providers Care Dust Box Worker Name Role Phone Patience CoerasP-Kwasi Primary Care Provider [phone] Reason for Visit * Reason Onset Date Comments COVID-19 01/21/2020 Encounter Details Date Type Department Care Team (Late st Contact Info) Description 01/21/2020 Telephone [facility] [address] [place] [address] Clementina Kim LPN COVID-19 Social History Tobacco Use Types Packs/Day Years [...] on file documented as of this encounter Miscellaneous Notes * Telephone Encounter - Clementina Kim - 01/21/2020 1141 EST 01/20 Pt called to schedule a COVID test we do not have an order. Pt will have provider either callthe COVID line or fax the order in. SW documented in this encounter Plan of Treatment Not on file documented as of this encounter Visit Diagnoses Not on filedocumented in this encounter Care Teams Dust Box Worker Relationship Specialty Start Date End Date Patience Coreas, ROSS CARRIER DRIVER-C PCP - General 09/27/19 07/10/20 documented as of this encounter
--- OUTSIDE RECORDS SUMMARY | 2023-11-24 15:18 | XMS_ITS | Encounter Summary ---
Author Organization [facility] Address [address] [place] [address] Care Team Providers Care English Language Arts Teacher Name Role Phone Renetta Velásquez DIRECTOR OF COLLECTIONS-C Primary Care Provider [phone] Encounter Details Date Type Department Care Team (Latest Contact Info) Description 07/17/2020 Travel Social History Tobacco Use Types Packs/Day [...] on filedocumented in this encounter Care Teams English Language Arts Teacher Relationship Specialty Start Date End Date Renetta Velásquez, DIRECTOR OF COLLECTIONS-C [address] [place] [phone] PCP - General Family Medicine [facility] Medicine 07/11/20 05/05/23 documented as of this encounter
--- OUTSIDE RECORDS SUMMARY | 2023-11-24 15:18 | XMS_ITS | Encounter Summary ---
Author Organization [facility] Address [address] [place] [address] Care Team Providers Care Pilates Coordinator Name Role Phone Renetta Velásquez COBOL PROGRAMMER-C Primary Care Provider Reason for Referral * Radiology Services (Routine) - Closed Specialty Diagnoses / Procedures Referred By Carlos castro Referred To Contact Diagnoses Headache Procedures CT HEAD WO CONTRAST Renetta eVlásquez NP-C [address] [place] [phone] Referral ID Status Reason Start Date Expiration Date Visits Re quested Visits Authorized [id number] Closed 07/03/2020 12/30/2020 1 1 Reason for Visit * Radiology Services (Routine) - Closed Specialty Diagnoses / Procedures Referred By Carlos castro Referred To Contact Diagnoses Headache Procedures CT HEAD WO CONTRAST Renetta Velásquez NP-C [address] [place] [phone] Referral ID Status Reason Start Date Expiration Date Visits Re quested Visits Authorized [id number] Closed 07/03/2020 12/30/2020 1 1 Encounter Details Date Type Department Care Team (Latest Contact Info) Description 09/09/2020 18:16 EDT - 09/09/2020 23:59 EDT Hospital Encounter Medical Center Radiology CT - [facility] [address] [place] [address] Headache Discharge Disposition: Home or Self Care Social [...] have Coronavirus / COVID-19? No / Unsure 09/09/2020 18:08 EDT documented as of this encounter Medications [...] Procedure Name Priority Date/Time Associated Diagnosis Comments CT HEAD WO CONTRAST Routine 09/09/2020 1 8:33 EDT Headache documented in this encounter Results * CT HEAD WO CONTRAST (09/09/2020 18:33 EDT) Anatomical Region Laterality Modality Head Computed Tomogra phy 09/10/2020 12:4 0 EDT Impressions 09/10/2020 12:40 EDT 1. 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 This is most likely incidental and unlikely to account for the patient's headaches given the absence of hydrocephalus. Due to the size of lesion greater than or equal to 15 mm, follow-up with MRI is recommended to confirm this is a simple cyst. 2. ??No abnormality to suggest a cause of headaches. I have personally reviewed the images and the above interpretation and agree with the findings. Narrative 09/10/2020 12:40 EDT EXAM: CT HEAD WO CONTRAST HISTORY: headaches ?? TECHNIQUE: CT head without contrast. Structured report code: NR.CT01 COMPARISON: None available. FINDINGS: PARENCHYMA: There is a 15 mm x 10 mm x 15 mm unilocular cyst with multiple small foci of peripheral calcification in the pineal gland. No evidence of infarction. No parenchymal hemorrhage. EXTRA-AXIAL SPACES: No extra-axial collection. No extra-axial mass. VENTRICULAR SYSTEM: Normal size and configuration. No obstructive hydrocephalus. VESSELS: Limited evaluation without IV contrast. Normal density in the dural venous sinuses. BONES: No concerning lesions. No evidence of fracture. ORBITS: No significant abnormality. PARANASAL SINUSES/MASTOID AIR CELLS: Predominantly clear. EXTRACRANIAL SOFT TISSUES: Unremarkable. Procedure Note Billy Kaur MD - 09/10/2020 EXAM: CT HEAD WO CONTRAST HISTORY: headaches TECHNIQUE: CT head without contrast. Structured report code: NR.CT01 COMPARISON: None available. FINDINGS: PARENCHYMA: There is a 15 mm x 10 mm x 15 mm unilocular cyst with multiple small fociof peripheral calcification in the pineal gland. No evidence ofinfarction. No parenchymal hemorrhage. EXTRA-AXIAL SPACES: No extra-axial collection. No extra-axial mass. VENTRICULAR SYSTEM: Normal size and configuration. No obstructive hydrocephalus. VESSELS: Limited evaluation without IV contrast. Normal density in the dural venoussinuses. BONES: No concerning lesions. No evidence of fracture. ORBITS: No significant abnormality. PARANASAL SINUSES/MASTOID AIR CELLS: Predominantly clear. EXTRACRANIAL SOFT TISSUES: Unremarkable. IMPRESSION 1. There is a 15 mm x 10 mm x 15 mm unilocular cyst with minimalperipheral calcification in the pineal gland, favored to represent abenign pineal cyst with neoplastic process is considered unlikely. This ismost likely incidental and unlikely to account for the patient's headachesgiven the absence of hydrocephalus. Due to the size of lesion greater thanor equal to 15 mm, follow-up with MRI is recommended to confirm this is asimple cyst. 2. No abnormality to suggest a cause of headaches. I have personally reviewed the images and the above interpretation andagree with the findings. Renetta Velásquez NP-Kwasi IMG CT ORDERABLES documented in this encounter Visit Diagnoses Diagnosis Headache documented in this encounter Care Teams Pilates Coordinator Relationship Specialty Start Date End Date Renetta Velásquez, COBOL PROGRAMMER-C [address] [facility] [address] [place] [phone] PCP - General Family Medicine - [facility] Medicine 07/11/20 05/05/23 documented as of this encounter
--- OUTSIDE RECORDS SUMMARY | 2023-11-24 15:18 | XMS_ITS | Encounter Summary ---
Author Organization [facility] Address [address] [place] [address] Care Team Providers Care Instructor Product Inspection Name Role Phone Unavailable Primary Care Provider Unavailabl e Encounter Details Date Type Department Care Team (Late st Contact Info) Description 01/27/2003 Office Visit [facility] [address] [place] [address] Frank Thapa PA-C [address] [place] [address] Social History Tobacco Use Types Packs/Day Years Used Date Smoking Tobacco: Never Assessed Sex and Gender Information Value Date Recorded Sex Assigned at Not on file Gender Identity Female 01/21/2020 16:11 EST Sexual Orientation Not on file documented as of this encounter Progress Notes * Frank Thapa PA - 04/11/2009 0752 EST Emergency Department ??? Physician Summary Registration Date/Time 01/27/2003 9:25 Arrived- By private vehicle. Historian- patient. HISTORY OF PRESENT ILLNESS Chief Complaint- EYE IRRITATION. This started yesterday, involves the right and left eye and is characterized as mild. She did not sustain an injury. Associated symptoms: Eye burning, redness, irritation and discharge. No eye matting, eye itching, eyelid swelling or photophobia. REVIEW OF SYSTEMS No fever, sore throat or cough. PAST HISTORY Medications: See nurses notes. Allergies: See nurses notes. PHYSICAL EXAM Appearance: Alert. No acute distress. HEENT: Ears normal. Nose normal. Pharynx normal. Eyes: Pupils equal, round and reactive to light. Rt Eye: Mildly injected conjunctiva. No exudate present. No subconjunctival hemorrhage or injury tothe sclera. Lt Eye: Moderately injected conjunctiva. No exudate present. No subconjunctival hemorrhage or injury to the sclera. Neck: Neck supple. CVS / Respiratory: No respiratory distress. Breath sounds normal. Heart sounds normal. Abdomen: Abdomen nontender. PROGRESS AND PROCEDURES ED Attending on duty and available for supervision: Cody Gama. CLINICAL IMPRESSION Right and left bacterial conjunctivitis. INSTRUCTIONS Warnings: GENERAL WARNINGS: Return or contact your physician immediately if your condition worsens or changesunexpectedly, if not improving as expected, or if other problems arise. Specifically, return if pain. Follow-up: Follow up with your doctor in two days. Frank Mai (Electronically signed Frank Mai 01/27/2003 14:17) Physician's Clinical Report Emergency Department ??? Nursing Summary Registration Date/Time 01/27/2003 9:25 TRIAGE Initial Assessment Acuity: LEVEL 5. BP: 104 / 63 sitting (child cuff). HR: 112 RR: 20 Temp: C 36.7 tympanic Alert. No acute distress. Weight = 43 lbs. (measured). --09:24 Tierra Epstein R.N. Medications (vitamins). --09:24 Tierra Epstein R.N. Allergies (augmentin). --09:24 Tierra Epstein R.N. History Pain level now: 10. The patient has had a nasal discharge. No fever or sore throat. Has not been pulling at ears. PAST HX: Asthma (symptoms arise with URI's- ). SOCIAL HX: Not exposed to second-hand smoke at home. Arrived by private vehicle. (redness f/b sensation rt eye- now bilat. Eyes itchy,red and puffy. yellow-green discharge). --09:24 Tierra Epstein R.N. NURSING PROGRESS NOTES Progress TOBRAMYCIN 1 drop to each eye. --09:58 Unique Riojas R.N. DISPOSITION / DISCHARGE Condition at departure: unchanged. No barriers to learning present. Discharge instructions reviewedwith the parent. Parent verbalized understanding. The patient was discharged home and accompanied by family. The patient left the Emergency Department ambulatory and via private vehicle. --09:59 Christina Mccormick R.N., R.N. Locked/Released at 01/27/2003 15:20 by Tierra Epstein R.N. documented in this encounter Plan of Treatment Not on file documented as of this encounter Visit Diagnoses Not on filedocumented in this encounter
--- OUTSIDE RECORDS SUMMARY | 2023-11-24 15:18 | XMS_ITS | Encounter Summary ---
Author Organization [facility] Address [address] [place] [address] Care Team Providers Care Business Team Leader Name Role Phone JossPatience Duc PATELP-C Primary Care Provider [phone] Reason for Visit * Reason Comments Migraine since last night, + nausea and photophobia Encounter Details Date Type Department Care Team (Latest Contact Info) Description 09/27/2019 15:50 EDT - 09/27/2019 17:24 EDT Hospital Encounter [facility] - [address] [address] Bean Nesbitt MD [address] [place] [address] Other migraine without status migrainosus, not intractable (Primary Dx) Discharge Disposition: Home or Self Care Social [...] 15:36 EDT documented as of this encounter Last Filed Vital Signs Vital Sign Reading Time Taken Comments Blood Pressure 132/81 09/27/2019 1538 EDT Pulse 112 09/27/2019 1538 EDT Temperature 36.7 ??C (98.1 ??F) 09/27/2019 1538 EDT Respiratory Rate 16 09/27/2019 1538 EDT Oxygen Saturation 96% 09/27/2019 1538 EDT Inhaled Oxygen Concentration - - Weight - - Height - - Body Mass Index - - documented in this encounter Discharge Instructions * Discharge Instructions* Bean Nesbitt MD - 09/27/2019 17:19 EDT There are medications that can be used on a daily basis to help prevent migraines. Please follow upwith your new doctor. * Attachments The following attachments cannot be sent through Care Everywhere. * Migraine Headache: Recurring (Spanish) documented in this encounter Medications at Time of Discharge [...] Code Departure Means Destination Home or Self Halfway documented in this encounter ED Notes * Edwin Odom RN - 09/27/2019 1658 EDT Pt reports slight improvement in headache * Bean Nesbitt MD - 09/27/2019 1620 EDT DOS: 09/27/2019 Chief Complaint Patient presents with ??? Migraine since last night, + nausea and photophobia The patient is a 19 y.o. female who presents today with Migraine (since last night, + nausea and photophobia) Cc migraine 19 yo female with hx anxiety and depression and frequent migraines (several a week) presents with MOY very typical of her migraines. Mild nausea. No emesis. Began last night. Knows it won't go away without a triptan. Ran out of rizatriptan. Last taken a week ago. For this MOY tried Excedrin migraine about 9 am today, using ice/cold compress. Review of Systems Constitutional: Negative for chills and fever. HENT: Negative for congestion, rhinorrhea and sore throat. Eyes: Positive for photophobia. Negative for discharge, redness and visual disturbance. Respiratory: Negative for cough, chest tightness, shortness of breath and wheezing. Gastrointestinal: Positive for nausea. Negative for diarrhea and vomiting. Musculoskeletal: Negative for neck stiffness. Skin: Negative for rash. Neurological: Positive for headaches. Negative for dizziness, seizures, weakness, light-headedness and numbness. No current facility-administered medications for this encounter. Current Outpatient Medications Medication Sig Dispense Refill ??? ascorbic acid, vitamin C, (VITAMIN C) 500 mg tablet Take 1,000 mg by mouth daily. Reported on 04/22/2016 ??? cholecalciferol, Vitamin D3, 1,000 unit tablet Take 2,000 Units by mouth daily. ??? LACTOBACILLUS ACIDOPHILUS (PROBIOTIC ORAL) Take by mouth. ??? levonorgestrel-ethinyl estradiol (ORSYTHIA) 0.1-20 mg-mcg per tablet Take 1 Tab by mouth daily. ??? MAGNESIUM ORAL Take by mouth. ??? pediatric multivitamin (ANGEL CHEW VIT) chewable tablet Take 1 Tab by mouth daily. ??? RIBOFLAVIN (VITAMIN B-2 ORAL) Take by mouth. ??? rizatriptan (MAXALT) 10 mg tablet Take 10 mg by mouth as needed for Migraine. May repeat in 2 hours if needed Allergies Allergen Reactions ??? Augmentin [Amoxicillin-Pot Clavulanate] vomiting Patient Active Problem List Diagnosis Date Noted ??? Goiter 01/15/2016 Multiple very small cysts 04/2016, negative thyroid antibodies. 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 Past Medical History: Diagnosis Date ??? Anxiety ??? Depressive disorder Social History Tobacco Use ??? Smoking status: Never Smoker ??? Smokeless tobacco: Never Used Substance Use Topics ??? Alcohol use: Not Currently ??? Drug use: Never Family History Problem Relation Age of Onset ??? Thyroid Disease Mother ??? No Known Brother M 1/2 ??? Thyroid Disease Maternal Grandmother ??? Diabetes Paternal Grandmother ??? Thyroid Disease Other MGGM ??? Infertility Neg Hx ??? Hearing Loss Neg Hx BP 132/81 Pulse (!) 112 Temp 98.1 ??F (36.7 ??C) Resp 16 SpO2 96% Physical Exam Constitutional: General: She is not in acute distress. Appearance: She is well-developed. She is not diaphoretic. HENT: Head: Normocephalic and atraumatic. Eyes: Conjunctiva/sclera: Conjunctivae normal. Neck: Musculoskeletal: Normal range of motion and neck supple. Pulmonary: Effort: Pulmonary effort is normal. No respiratory distress. Musculoskeletal: Normal range of motion. Skin: General: Skin is warm and dry. Neurological: Mental Status: She is alert and oriented to person, place, and time. Sensory: No sensory deficit. Coordination: Coordination normal. Psychiatric: Behavior: Behavior normal. Consult orders: None PCP: Patience Coreas No results found for this visit on 09/27/19. Radiology orders: None Imaging Results None No orders to display Procedures URGENT CARE COURSE A medical screening exam was performed. ASSESSMENT AND PLAN Final diagnoses: Other migraine without status migrainosus, not intractable Feeling improved post imitrex and ibuprofen, feels ready to return home. Push fluids. F/u with PCP. She had a neurologist in [place] but she may want to be seen elsewhere. Reviewed symptomatic treatment and indications for follow up. See discharge instructions. No supervision required. DISPOSITION: Discharged The patient's pain was managed to an adequate level weighing risk vs. benefit of further medications. Upon departure from [facility], the patient's pain was 5 on a zero to ten scale. Any further pain treatment will be at the discretion of the provider following up with the patient based on their clinical assessment . Condition at departure from the [facility] : Stable MDM 09/27/2019 17:22 * Edwin Odom RN - 09/27/2019 1546 EDT See note above- pt states she has history of migraines * Tierra Dacosta RN - 09/27/2019 1539 EDT Answers no to all COVID screening questions except for headache. She has a hx of migraines and has the same symptoms as her usual migraines with photophobia, sensitive to noise, and nausea. documented in this encounter Plan of Treatment Not on file documented as of this encounter Visit Diagnoses Diagnosis Other migraine without status migrainosus, not intractable- Primary documented in this encounter Administered Medications Inactive Administered Medications - up to 3 most recent administrations Medication Order MAR Action Action Date Dose Rate Site ibuprofen (MOTRIN) tablet 400 mg 400 mg, oral, NOW X1, 1 dose, On Amna 09/27/19 at 1630, Routine Given 09/27/2019 16:45 EDT 400 mg sumatriptan (IMITREX) injection 6 mg 6 mg, subcutaneous, NOW X1, 1 dose, On Amna 09/27/19 at 1630, Routine Given 09/27/2019 16:44 EDT 6 mg Right A rm documented in this encounter Historical Medications * This list may reflect changes made after this encounter. Medication Sig Dispensed Refills Start Date End Date rizatriptan (MAXALT) 10 mg tablet Take 10 mg by mouth as needed for Migraine. May repeat in 2 hours if needed added in this encounter Active and Recently Administered Medications Times are shown in EDT. Scheduled Medication Order 09/25/2019 09/26/2019 09/27/2019 ibuprofen (MOTRIN) tablet 400 mg (COMPLETED) 400 mg, oral, NOW X1, 1 dose, On Amna 09/27/19 at 1630, Routine 1645 (Given - Provid er: Edwin Odom RN) sumatriptan (IMITREX) injection 6 mg (COMPLETED) 6 mg, subcutaneous, NOW X1, 1 dose, On Amna 09/27/19 at 1630, Routine 1644 (Given - Provid er: Edwin Odom RN) documented in this encounter Care Teams Business Team Leader Relationship Specialty Start Date End Date Patience Coreas, GRAVITY PROSPECTING OPERATOR-C PCP - General 09/27/19 07/10/20 documented as of this encounter
--- OUTSIDE RECORDS SUMMARY | 2023-11-24 15:18 | XMS_ITS | Encounter Summary ---
Author Organization [facility] Address [address] [place] [address] Care Team Providers Care Motor Room Controller Name Role Phone Renetta Velásquez WORKFORCE MANAGEMENT MANAGER-C Primary Care Provider [phone] Encounter Details Date Type Department Care Team (Latest Contact Info) Description 09/20/2020 Travel Social History Tobacco Use Types Packs/Day [...] 11:46 EDT documented as of this encounter Plan of Treatment Not on file documented as of this encounter Visit Diagnoses Not on filedocumented in this encounter Care Teams Motor Room Controller Relationship Specialty Start Date End Date Renetta Velásquez, WORKFORCE MANAGEMENT MANAGER-C [address] [place] [phone] PCP - General Family Medicine - [facility] Medicine 07/11/20 05/05/23 documented as of this encounter
--- OUTSIDE RECORDS SUMMARY | 2023-11-24 15:18 | XMS_ITS | Clinical Summary ---
Author Organization [facility] Address [facility] [place] [address] Care Team Providers Care Energy Derivatives Trader Name Role Phone Renetta Velásquez APRN Primary Care Provider Allergies Active Allergy Reactions Criticality Noted Date Comments Amoxicillin-Pot Clavulanate 09/27/19 vomiting Citalopram Analogues 09/17/2020 Nausea,vomiting,dizzines s Medications Medication Sig Dispensed Refills Start Date End Date Status Vienva 0.1-20 mg-mcg Tablet TAKE ONE TABLET BY MOUTH EVERY DAY DIRECTED 08/28/2020 Active cholecalciferol, Vitamin D3, (Vitamin D3) 1,000 unit Tablet Take 2,000 Units by mouth Daily. Active rizatriptan (MAXALT) 10 mg Tablet Take 10 mg by mouth. Acti ve MAGNESIUM ORAL Take by mouth. Active Coenzyme Q10 (Co Q-10) 200 mg Capsule Take by mouth. Active ferrous fumarate/vit Bcomp,C (SUPER B COMPLEX ORAL) Take by mouth. Active naproxen sodium (ALEVE ORAL) Take by mouth. Active diphenhydrAMINE (Benadryl) 25 mg Capsule Take 25 mg by mouth every 6 hours as needed for Itching. Active UNABLE TO FIND CBD Active fremanezumab-vfrm (Ajovy Autoinjector) 225 mg/1.5 mL Auto-InjectorIndic ations:Chronic migraine without aura, with intractable migraine, so stated, with status migrainosus Inject 225 mg subcutaneously every 30 days. 1.5 mL 11 01/07/2021 Active ZOLMitriptan (ZOMIG) 2.5 mg TabletIndications: Chronic migraine without aura, with intractable migraine, so stated, with status migrainosus Take 1 tablet by mouth at onset of migraine. May repeat x1 after 2 hours if needed. Limit 2 tabs in 24 hours. Limit 2 days per week. 9 tablet 07/08/2021 Active Active Problems Problem Noted Date Diagnosed Date CRP elevated 07/08/2020 Overview (09/17/2020): 4.79 JONATHAN (generalized anxiety disorder) Goiter MDD (major depressive disorder) Overview (09/08/2020): with SI Low vitamin D level Pineal gland cyst Back pain IBS (irritable bowel syndrome) Neck pain Chronic migraine without aur a, with intractable migraine, so stated, with status migrainosus Suicidal ideation Family History Medical History Relation Comments Migraines Father Migraines Maternal Grandmother Relation Status Comments Father Maternal Grandmother Social History Tobacco Use Types Packs/Day Years Used Date Smoking Tobacco: Former Smokeless Tobacco: Never Alcohol Use Standard Drinks/Week Comments Not Currently 0 (1 standard drink = 0.6 oz pur e alcohol) Sex and Gender Information Value Date Recorded Sex Assigned at Not on file Gender Identity Not on file Sexual Orientation Not on file Last Filed Vital Signs Vital Sign Reading Time Taken Comments Blood Pressure 128/71 09/17/2020 3:43 PM EDT Pulse 88 09/17/2020 3:43 PM EDT Temperature - - Respiratory Rate - - Oxygen Saturation 99% 09/17/2020 3:43 PM EDT Inhaled Oxygen Concentration - - Weight 71.2 kg (157 lb) 09/17/2020 3:43 PM EDT Height 165.1 cm (5' 5) 09/17/2020 3:43 PM EDT r eported Body Mass Index 26.13 09/17/2020 3:43 PM EDT Plan of Treatment Health Maintenance Due Date Last Done Comments Chlamydia Screening 2014 HPV vaccine (1 - 3-dose series) 2014 HIV screen 2017 Hepatitis C Screening 2017 Hepatitis B vaccine (0-59 yrs) (1) 2018 Tetanus/Diphtheria/Pertussis Vaccines (1 - Tdap) 02/24 PAP Smear 02/25/2020 Covid-19 Vaccine (1 - 2022- season) 2023 Influenza (Flu) vaccine (1 o f 1 - Influenza standard series) 10/09/2023 Care Teams Energy Derivatives Trader Relationship Specialty Start Date End Date Renetta Velásquez, CASTING MACHINE ADJUSTER [address] [place] [address] PCP - General Family Medicine 07/25/20
--- OUTSIDE RECORDS SUMMARY | 2023-11-24 15:18 | XMS_ITS | Encounter Summary ---
Author Organization [facility] Address [address] [place] [address] Care Team Providers Care [employer] Name Role Phone Lucie Hilotn MD Primary Care Provider Patience Coreas SERVICE TECHNICIAN COPIER-C Primary Care Provider [phone] Renetta Velásquez BODY ENGINEER-C Primary Care Provider [phone] Lorrie Prater MD Primary Care Provider Encounter Details Date Type Department Care Team (Late st Contact Info) Description 04/16/2019 Lab Requisition [facility]ology & Laboratory Medicine - [address] [address] Unknown, Provider, Social History Tobacco Use Types [...] Name Priority Date/Time Associated Diagnosis Comments VITAMIN B12 Routine 04/16/2019 15:26 EDT documented in this encounter Results * VITAMIN B12 (04/16/2019 15:26 EDT) Vitamin B12 709 211 - 911 pg/mL 04/17/2019 12:28 EDT [facility] Blood VENOUS BLOOD / Unknown 04/16/2019 15:26 EDT 04/16/2019 21:59 EDT Provider Unknown CHEMISTRY & BLOOD GA S ORDERABLES [facility] [address] [place] [address] documented in this encounter Visit Diagnoses Not on filedocumented in this encounter Care Teams [employer] Relationship Specialty Start Date End Date Lucie Hilton MD [address] [phone] PCP - General 06/05/18 09/26/19 Patience Coreas, SERVICE TECHNICIAN COPIER-C [address] [phone] PCP - General 09/27/19 07/10/20 Renetta Velásquez, REEMA-C [address] [phone] PCP - General Family Medicine - [facility] Medicine 07/11/20 05/05/23 Lorrie Prater MD [address] [place] [address] PCP - General 05/06/23 documented as of this encounter
--- OUTSIDE RECORDS SUMMARY | 2023-11-24 15:18 | XMS_ITS | Encounter Summary ---
Author Organization [facility] Address [address] [place] [address] Care Team Providers Care Banking Assistant Name Role Phone Simona Ambriz NP Primary Care Provider Encounter Details Date Type Department Care Team (Latest Contact Info) Description 05/05/2016 13:06 EDT - 05/05/2016 13:07 EDT Hospital Encounter [facility] [place] [id number] [place] [address] Mervat Weems MD [address] [facility] [place] [address] Angel Weems, DO [address] [place] [phone] Discharge Disposition: Home or Self Care Social History Tobacco Use Types Packs/Day Years Used Date Smoking Tobacco: Never Assessed Sex and Gender Information Value Date Recorded Sex Assigned at Not on file Gender Identity Female 01/21/2020 16:11 EST Sexual Orientation Not on file documented as of this encounter Discharge Diagnoses Diagnosis R30.0 Dysuria-R30.0[ICD-10-CM] N76.0 Acute vaginitis-N76.0[ICD-10-CM] documented in this encounter Medications at Time [...] RIBOFLAVIN (VITAMIN B-2 ORAL) Take by mouth. documented as of this encounter Discharge Disposition Disposition Code Departure Means Destination Home or Self Care documented in this encounter Plan of Treatment Not on file documented as of this encounter Visit Diagnoses Not on filedocumented in this encounter Care Teams Banking Assistant Relationship Specialty Start Date End Date Simona Ambriz NP PCP - General 10/01/15 06/04/18 documented as of this encounter
--- OUTSIDE RECORDS SUMMARY | 2023-11-24 15:18 | XMS_ITS | Encounter Summary ---
Author Organization [facility] Address [address] [place] [address] Care Team Providers Care Electrical Accessories I Assembler Name Role Phone Pb Simona L BEAUTY CULTURIST APPRENTICE Primary Care Provider [phone] Reason for Visit * Reason Comments Goiter Encounter Details Date Type Department Care Team (Latest Contact Info) Description 04/22/2016 8:45 EDT Office Visit [facility] Pediatric Endocrinology - [address] [place] [address] [place], [place] [id number] Tessie Juarez MD [address] [phone] Goiter (Primary Dx); Colloid goiter Social History Tobacco Use Types Packs/Day Years Used Date Smoking Tobacco: Never Assessed Sex and Gender Information Value Date Recorded Sex Assigned at Not on file Gender Identity Female 01/21/2020 16:11 EST Sexual Orientation Not on file documented as of this encounter Last Filed Vital Signs Vital Sign Reading Time Taken Comments Blood Pressure 125/77 04/22/2016 0900 EDT Pulse 80 04/22/2016 0900 EDT Temperature - - Respiratory Rate - - Oxygen Saturation - - Inhaled Oxygen Concentration - - Weight 51.3 kg (113 lb 1.5 oz) 04/22/2016 0900 E DT Height 162.9 cm (5' 4.13) 04/22/2016 0900 EDT Body Mass Index 19.33 04/22/2016 0900 EDT Body Mass Index Percentile 27.48% 04/22/2016 090 0 EDT Growth Chart: [facility] (Girls, 2- 20 Years) documented in this encounter Progress Notes * Tessie Juarez MD - 04/22/2016 0845 EDT Pediatric Endocrinology Follow Up Patient Identification: 16 y.o. 1 m.o. old female Reason for follow up: enlarged thyroid gland Date of service: 04/22/2016 Primary Care Provider: Simona Ambriz History obtained from: patient and mother History of present illness: Initial consult 12/2015 for enlarged thyroid gland noted by PCP at a routine physical; normal TFTs,negative thyroid antibodies. Thyroid ultrasound with reported heterogeneous thyroid gland, increased vascularity and nodules in both lobes, all under 5 mm, with no concerning ultrasonographic findings. Linwood was not aware of thyroid enlargement, denied dysphagia or voice changes. She had no prior head or neck radiation. Of note, regarding her positive family history of thyroid disease: mother was diagnosed with euthyroid goiter at age 23, had negative thyroid antibodies. She has been on thyroid hormone supplements (T4 +/- T3) with some decrease in goiter size but no resolution, thyroidectomy was discussed as option, she has intermittent dysphagia. Maternal grandmother underwent radioactive iodine treatment in her 20s for goiter; she has been fine until recently, in her 70s she was started on thyroid hormone supplements. GIANNA took thyroid hormone since 1940s, no details are known. GIANNA underwent thyroidectomy, no indication is known. HEATHER's side has people with Graves' disease and other people with goiter. There is not known intellectual disability, no early hearing loss. Interval History: Interval illness: jayda Palumbo attends alternative school, she should be graduating 1 yr earlier. She plans to start working after graduation and once she turns 17, she will move to [place] to live with her boyfriend. Occasionally complains of dry throat and associated dysphagia, believes is related to dry air in the house as they use a wood stove. She feels that her goiter decreased in size. Continues to struggle with migraines, started supplements as recommended by PCP with significant improvement. Positive for: Migraine headaches: for about 9 months now, decreased intensity and frequency with supplements start Anxiety and depression: long-standing, previously was on Zoloft for about 9 mo with no improvement,not treated, not seen counselor, feels better Always has cold hand sand feet Dry skin, typical in winter, no nail or hair changes Facial acne, on and off, depending on stress and where she is in her cycle (on OCPs for contraception) ?? Negative for: voice hoarseness, fatigue, weight change, appetite change, diarrhea, constipation, tremor, palpitations, difficulty concentrating and diffuculty sleeping Review of Systems: A ten point review of systems was performed and was negative except for: wears glasses since age 9, she is nearsighted and has astigmatism, last prescription increase over6 months ago, Linwood feels that it continues to work well Problem List Patient Active Problem List Diagnosis ??? Goiter Multiple very small cysts 04/2016, negative thyroid antibodies. 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 Medications: Current Outpatient Prescriptions Medication Sig ??? ascorbic acid, vitamin C, (VITAMIN C) 500 mg tablet Take 1,000 mg by mouth daily. Reported on 04/22/2016 ??? cholecalciferol, Vitamin D3, 1,000 unit tablet Take 3,000 Units by mouth daily. ??? LACTOBACILLUS ACIDOPHILUS (PROBIOTIC ORAL) Take by mouth. ??? levonorgestrel-ethinyl estradiol (ORSYTHIA) 0.1-20 mg-mcg per tablet Take 1 Tab by mouth daily. ??? MAGNESIUM ORAL Take by mouth. ??? pediatric multivitamin (ANGEL CHEW VIT) chewable tablet Take 1 Tab by mouth daily. ??? RIBOFLAVIN (VITAMIN B-2 ORAL) Take by mouth. Adherence with endocrine medications: not applicable Allergies: No Known Allergies Social History: Social History ??? Lives with Parents ??? Education Grade 12 ??? Home Schooled Yes Physical Exam: Vitals: Visit Vitals ??? BP 125/77 ??? Pulse 80 ??? Ht 162.9 cm (64.13) ??? Wt 51.3 kg (113 lb 1.5 oz) ??? BMI 19.33 kg/m2 Blood pressure percentiles are 89.6 % systolic and 83.6 % diastolic based on NHBPEP's 4th Report. Linear Growth Velocity from the last 1 Pediatric Endocrinology encounters Velocity Start Date End Date 0.7 cm/yr 11/24/2015 04/22/2016 Weight measurements from the last 2 Pediatric Endocrinology encounters Date Weight 04/22/2016 51.3 kg (113 lb 1.5 oz) (30.84 %) 11/24/2015 52.2 kg (115 lb 1.3 oz) (37.52 %) Body mass index is 19.33 kg/(m^2). 27 %ile (Z= -0.60) based on [facility] 2-20 Years BMI-for-age data using vitals from 04/22/2016. General Appearance: comfortable, well-hydrated and in no apparent distress Dysmorphisms: none appreciated Head: normocephalic ENT: moist mucous membranes Eyes: EOMI Thyroid: normal size , homogenous, no palpable nodularity and nontender Lymphatic: bilateral anterior cervical shotty Respiratory: clear and good air entry bilaterally Cardiovascular: RRR and normal S1 and S2 Gastrointestinal: benign, soft, non-tender and no palpable masses Neurologic: cranial nerves II-XII intact, good tone and no asymmetry Musculoskeletal: no appreciable bony deformities Skin: normal temperature, normal texture, normal turgor and mild facial acne Sexual Development: deferred Data Review/Interval Investigations: Date: 08/06/15 TSH 1.59, free T4 1.1 and free T3 3.0 (3-4.7) Date: 10/01/15 TPO negative, thyroglobulin negative and vitamin D 34.1 ?? Date: 08/30/15 Thyroid ultrasound with reported heterogeneous thyroid echotexture, increased vascularity. Nodularity is in both lobes, under 5 mm. Date: 04/16/16 thyroid ultrasound with reported tiny coloidal cysts (max 2 mm) , otherwise normal thyroid gland Assessment: 16 y.o. 1 m.o. old female with h/o goiter. No nodularity on palpation, no nodules on recent U/S identified. Previously had negative thyroid antibodies, biochemically was euthyroid as of 07/2015. Clinically euthyroid on exam today. Has no prior history of head or neck radiation, has family history of thyroid disease (no thyroid cancer), see above (euthyroid goiter with negative antibodies, Graves' disease, history of thyroidectomy). ?? Suspected diagnosis: adolescent colloidal goiter ?? Cause of adolescent colloidal goiter is not known. Thyroid gland is usually diffusely enlarged but it can be asymmetric or nodular. Thyroid function and serum antithyroid antibody concentrations are normal. Goiter usually gradually decreases in size over several years; the course is not altered by T4 therapy. She does not need endocrine follow-up or routine TFTs unless new concerns arise, such as thyroid enlargement or asymmetry, new signs or symptoms suggestive of thyroid dysfunction. Suggestions/Plan: Investigations: none at this time Topics reviewed today: symptoms and signs of hypothyroidism and hyperthyroidism Disposition: no endocrine follow up needed unless any new concerns develop I spent a total of 30 minutes in face to face time with this patient and 25 minutes of that time was spent in counseling and coordination of care as described in the progress note. Tessie Juarez MD 04/22/2016 documented in this encounter Plan of Treatment Not on file documented as of this encounter Visit Diagnoses Diagnosis Goiter- Primary Goiter, unspecified Colloid goiter Goiter, unspecified documented in this encounter Historical Medications * This list may reflect changes made after this encounter. Medication Sig Dispensed Refills Start Date End Date MAGNESIUM ORAL Take by mouth. RIBOFLAVIN (VITAMIN B-2 ORAL) Take by mouth. added in this encounter Care Teams Electrical Accessories I Assembler Relationship Specialty Start Date End Date Simona Ambriz NP PCP - General 10/01/15 06/04/18 documented as of this encounter
--- OUTSIDE RECORDS SUMMARY | 2023-11-24 15:18 | XMS_ITS | Encounter Summary ---
Author Organization [facility] Address [address] [place] [address] Care Team Providers Care Technologist Development Name Role Phone Patience Coreas GLAZE SUPERVISOR-C Primary Care Provider Renetta Velásquez IRON PELLET TESTER-C Primary Care Provider [phone] Encounter Details Date Type Department Care Team (Latest Contact Info) Description 07/10/2020 Transcribe Orders Non [facility] Ancillary Services Marguerite Ritter [address] [place] [address] Encounter for general adult medical examination with abnormal findings (Primary Dx); Dysthymic disorder; Generalized anxiety disorder; Chronic fatigue [...] documented as of this encounter Results * (ABNORMAL) VITAMIN D (25,OH) (07/11/2020 17:40 EDT) 25OH Vitamin D Tot 23.1(L) 30.0 - 100.0 ng/mL 07/14/2020 10:[address] [facility] Comment: Vitamin D 25,OH Interpretive Ranges: Deficiency: ??<10.0 ng/mL Insufficiency: ??10.0 - 30.0 ng/mL Sufficiency: ??30.0 - 100.0 ng/mL Toxicity: ??>100.0 ng/mL Blood VENOUS BLOOD / Unknown Venipuncture / Unknown 07/11/2020 17:40 EDT 07/11/2020 17:45 EDT [employer] CHEMISTRY & BLOOD GA S ORDERABLES Performing Organization Address City/[facility]/ZIP Co de Phone Number [facility] [address] [place] [address] * VITAMIN B12 (07/11/2020 17:40 EDT) [facility] Vitamin B12 470 211 - 911 pg/mL 07/11/2020 20:[address] [facility] Blood VENOUS BLOOD / Unknown Venipuncture / Unknown 07/11/2020 17:40 EDT 07/11/2020 17:45 EDT [employer] CHEMISTRY & BLOOD GA S ORDERABLES [facility] [address] [place] [address] * HIGH SENSITIVITY C-REACTIVE PROTEIN (CARDIOVASCULAR DISEASE) (07/11/2020 17:40 EDT) [facility] High Sensitivity CRP 4.79 See Note mg/L 07/11/2020 19:[address] [facility] Comment: Reference Range: ??Source: The [place] [employer] Clinical Practice Recommendations, 2003 ??Low Risk: ? <1.0 mg/L ??Average Risk: ?? 1.0 - 3.0 mg/L ??High Risk: ?>3.0 mg/L ??Indeterminate*: >10.0 mg/L ??*May be an indication of another source of inflammation or infection Blood VENOUS BLOOD / Unknown Venipuncture / Unknown 07/11/2020 17:40 EDT 07/11/2020 17:45 EDT Margueritemarissa CarmenOdysii CHEMISTRY & BLOOD GA S ORDERABLES Performing Organization Address [facility] de Phone Number [facility] [address] [place] [address] * THYROID ANTIBODIES (07/11/2020 17:40 EDT) Anti-Thyroglobulin <15 <=60 U/mL 2020 20:[address] [facility] Thyroperoxidase Ab <28 <=60 U/mL 2020 20:[address] [facility] Blood VENOUS BLOOD / Unknown Venipuncture / Unknown 07/11/2020 17:40 EDT 07/11/2020 17:45 EDT Marguerite CarmenOdysii CHEMISTRY & BLOOD GA S ORDERABLES Performing Organization Address [facility] de Phone Number [facility] [address] [place] [address] * TSH (07/11/2020 17:40 EDT) TSH 1.83 0.47 - 4.68 uIU/mL 07/11/2020 19:[address] [facility] Blood VENOUS BLOOD / Unknown Venipuncture / Unknown 07/11/2020 17:40 EDT 07/11/2020 17:[address] [facility] - 07/11/2020 19:39 EDT The results of this assay can be falsely lowered due to the consumption of Biotin. MargueriteThe [place] Nest CHEMISTRY & BLOOD GA S ORDERABLES Performing Organization Address City/[facility] Co de Phone Number [facility] [address] [place] [address] * T3 FREE (07/11/2020 17:40 EDT) T3, Free 3.0 2.8 - 5.3 pg/mL 07/11/2020 19:[address] [facility] Blood VENOUS BLOOD / Unknown Venipuncture / Unknown 07/11/2020 17:40 EDT 07/11/2020 17:45 EDT [employer] CHEMISTRY & BLOOD GA S ORDERABLES Performing Organization Address City/[facility]/ZIP Co de Phone Number [facility] [address] [place] [address] * T4 FREE (07/11/2020 17:40 EDT) T4, Free 1.1 0.8 - 2.2 ng/dL 07/11/2020 19:[address] [facility] Blood VENOUS BLOOD / Unknown Venipuncture / Unknown 07/11/2020 17:40 EDT 07/11/2020 17:45 EDT [employer] CHEMISTRY & BLOOD GA S ORDERABLES Performing Organization Address [facility]/ZIP Co de Phone Number [facility] [address] [place] [address] * FERRITIN (07/11/2020 17:40 EDT) Ferritin 44 10 - 291 ng/mL 07/11/2020 20:[address] [facility] Blood VENOUS BLOOD / Unknown Venipuncture / Unknown 07/11/2020 17:40 EDT 07/11/2020 17:45 EDT [employer] CHEMISTRY & BLOOD GA S ORDERABLES [facility] [address] [place] [address] * CELIAC DISEASE PANEL (07/11/2020 17:40 EDT) Tissue Transglutaminase Antibody IGA <1.2 <4.0 U/mL 07/14/2020 13:[address] [facility] Comment: A negative result may be due to IgA deficiency and does not rule out celiac disease. ? Negative: ??<4.0 U/mL ? Weak Positive: ??4.0 - 10.0 U/mL ? Positive: ??>10.0 U/mL Results were obtained with the [employer] QUANTA Lite R h-tTG IgA RAMÍREZ assay on the [employer]. IgA 270 85 - 499 mg/dL 07/14/2020 13:[address] [facility] Celiac Disease Interpretation Negative Serology. Celiac disease unlikely. Approximately 10% of patients with celiac disease are seronegative. Patients who are already adhering to a gluten-free diet may also be seronegative. If celiac disease is highly clinically suspected, referral to gastroenterology for additional evaluation is recommended. 07/14/2020 13:[address] [facility] Blood VENOUS BLOOD / Unknown Venipuncture / Unknown 07/11/2020 17:40 EDT 07/11/2020 17:45 EDT Marguerite Ritter IMMUNOLOGY AND SEROL AYO ORDERABLES [facility] [address] [place] [address] * ANTI NUCLEAR AB (PAN), IFA (07/11/2020 17:40 EDT) PAN Interpretation Negative Negative 2020 15:[address] [facility] Comment:No titer performed, PAN Screen is negative. Blood VENOUS BLOOD / Unknown Venipuncture / Unknown 07/11/2020 17:40 EDT 07/11/2020 17:[address] [facility] - 07/14/2020 15:21 EDT Results were obtained with the [employer] NOVA Lite HEp-2 PAN Kit by indirect immunofluorescence. Marguerite Carmensrikanth Ritter IMMUNOLOGY AND SERSHILPI OGY ORDERABLES [facility] [address] [place] [address] * COMPREHENSIVE METABOLIC PANEL (CMP) (07/11/2020 17:40 EDT) Sodium 140 136 - 145 mEq/L 07/11/2020 19:06 [facility] Potassium 4.5 3.5 - 5.0 mEq/L 07/11/2020 19:06 [facility] Chloride 102 96 - 110 mEq/L 07/11/2020 19:06 [facility] CO2 Total 23 22 - 32 mEq/L 07/11/2020 19:06 [facility] Glucose 75 70 - 100 mg/dL 07/11/2020 19:06 [facility] BUN 13 10 - 26 mg/dL 07/11/2020 19:06 [facility] Creatinine 0.65 0.52 - 1.04 mg/dL 07/11/2020 19:06 [facility] eGFR 127 >60 mL/min/1.7 3m2 07/11/2020 19:06 [facility] Comment:eGFR calculated yanet villafana CKD-EPI equation for non- Americans. Multiply eGFR by 1.16 for patients. Total Protein 8.2 6.3 - 8.2 g/dL 07/11/2020 19:06 [facility] Albumin 4.7 3.4 - 4.9 g/dL 07/11/2020 19:06 [facility] Alkaline Phosphatase 80 38 - 126 U/L 07/11/2020 19:06 [facility] AST 30 15 - 46 U/L 07/11/2020 19:06 [facility] ALT 23 <35 U/L 07/11/2020 19:06 [facility] Bilirubin, Total <0.5 <1.4 mg/dL 07/12/19 19:06 [facility] Calcium 10.0 8.5 - 10.5 mg/dL 07/11/2020 19:[address] [facility] Calculated Calcium 9.4 8.5 - 10.5 mg/dL 07/11/2020 19:[address] [facility] Blood VENOUS BLOOD / Unknown Venipuncture / Unknown 07/11/2020 17:40 EDT 07/11/2020 17:45 EDT Marguerite Ritter CHEMISTRY & BLOOD GA S ORDERABLES [facility] [address] [place] [address] documented in this encounter Visit Diagnoses Diagnosis Encounter for general adult medical examination with abnormal findings- Primary Unspecified general medical examination Dysthymic disorder Generalized anxiety disorder Chronic fatigue syndrome Migraine without status migrainosus, not intractable, unspecified migraine type Myalgia, unspecified site documented in this encounter Orders Lab Orders Without Results Count Last Ordered D ate First Ordered Date COMPLETE BLOOD COUNT AND DIFFERENTIAL 2 05/202007/10/2020 HEMOGLOBIN A1C 2 07/11/2020 07/10/2020 documented in this encounter Care Teams Technologist Development Relationship Specialty Start Date End Date Patience Coreas, GLAZE SUPERVISOR-C PCP - General 09/27/19 07/10/20 Renetta Velásquez NP-C [address] [place] [id number] PCP - General Family Medicine - [facility] Medicine 07/11/20 05/05/23 documented as of this encounter
--- OUTSIDE RECORDS SUMMARY | 2023-11-24 15:18 | XMS_ITS | Encounter Summary ---
Author Organization [facility] Address [address] [place] [address] Care Team Providers Care Wool Mixer Name Role Phone ChristenRenetta MIXER SLAGMAN-C Primary Care Provider Encounter Details Date Type Department Care Team (Latest Contact Info) Description 07/11/2020 17:30 EDT Phlebotomy Only [facility] Services [facility] ([address] [phone] Encounter for general adult medical examination with [...] Procedure Name Priority Date/Time Associated Diagnosis Comments CELIAC DISEASE PANEL Routine 07/11/2020 17:40 EDT Encounter for general adult medical examination with abnormal findings Dysthymic disorder Generalized anxiety disorder Chronic fatigue syndrome Migraine without status migrainosus, not intractable, unspecified migraine type Myalgia, unspecified site VITAMIN D (25,OH) Routine 07/11/2020 17: 40 EDT Encounter for general adult medical examination with abnormal findings Dysthymic disorder Generalized anxiety disorder Chronic fatigue syndrome Migraine without status migrainosus, not intractable, unspecified migraine type Myalgia, unspecified site HIGH SENSITIVITY C-REACTIVE PROTEIN (CARDIOVASCULAR DISEASE) Routine 07/11/2020 17:40 EDT Encounter for general adult medical examination with abnormal findings Dysthymic disorder Generalized anxiety disorder Chronic fatigue syndrome Migraine without status migrainosus, not intractable, unspecified migraine type Myalgia, unspecified site ANTI NUCLEAR AB (PAN), IFA Routine 07/11/2020 17:40 EDT Encounter for general adult medical examination with abnormal findings Dysthymic disorder Generalized anxiety disorder Chronic fatigue syndrome Migraine without status migrainosus, not intractable, unspecified migraine type Myalgia, unspecified site T3 FREE Routine 07/11/2020 17:40 EDT Encounter for general adult medical examination with abnormal findings Dysthymic disorder Generalized anxiety disorder Chronic fatigue syndrome Migraine without status migrainosus, not intractable, unspecified migraine type Myalgia, unspecified site TSH Routine 07/11/2020 17:40 EDT Encounter for general adult medical examination with abnormal findings Dysthymic disorder Generalized anxiety disorder Chronic fatigue syndrome Migraine without status migrainosus, not intractable, unspecified migraine type Myalgia, unspecified site THYROID ANTIBODIES Routine 07/11/2020 17 :40 EDT Encounter for general adult medical examination with abnormal findings Dysthymic disorder Generalized anxiety disorder Chronic fatigue syndrome Migraine without status migrainosus, not intractable, unspecified migraine type Myalgia, unspecified site T4 FREE Routine 07/11/2020 17:40 EDT Encounter for general adult medical examination with abnormal findings Dysthymic disorder Generalized anxiety disorder Chronic fatigue syndrome Migraine without status migrainosus, not intractable, unspecified migraine type Myalgia, unspecified site FERRITIN Routine 07/11/2020 17:40 EDT Encounter for general adult medical examination with abnormal findings Dysthymic disorder Generalized anxiety disorder Chronic fatigue syndrome Migraine without status migrainosus, not intractable, unspecified migraine type Myalgia, unspecified site VITAMIN B12 Routine 07/11/2020 17:40 EDT Encounter for general adult medical examination with abnormal findings Dysthymic disorder Generalized anxiety disorder Chronic fatigue syndrome Migraine without status migrainosus, not intractable, unspecified migraine type Myalgia, unspecified site COMPREHENSIVE METABOLIC PANEL (CMP) Routine 07/11/2020 17:40 EDT Encounter for general adult medical examination with abnormal findings Dysthymic disorder Generalized anxiety disorder Chronic fatigue syndrome Migraine without status migrainosus, not intractable, unspecified migraine type Myalgia, unspecified site documented in this encounter Results * (ABNORMAL) VITAMIN D (25,OH) (07/11/2020 17:40 EDT) Pathologist [facility] [place] 25OH Vitamin D Tot 23.1(L) 30.0 - 100.0 ng/mL 07/14/2020 10:17 EDT [facility] Comment: Vitamin D 25,OH Interpretive Ranges: Deficiency: ??<10.0 ng/mL Insufficiency: ??10.0 - 30.0 ng/mL Sufficiency: ??30.0 - 100.0 ng/mL Toxicity: ??>100.0 ng/mL Blood VENOUS BLOOD / Unknown Venipuncture / Unknown 07/11/2020 17:40 EDT 07/11/2020 17:45 EDT Marguerite Ritter CHEMISTRY & BLOOD GA S ORDERABLES [facility] [address] [place] [address] * VITAMIN B12 (07/11/2020 17:40 EDT) [facility] Vitamin B12 470 211 - 911 pg/mL 07/11/2020 20:40 EDT [facility] Blood VENOUS BLOOD / Unknown Venipuncture / Unknown 07/11/2020 17:40 EDT 07/11/2020 17:45 EDT Marguerite Carmens [employer] CHEMISTRY & BLOOD GA S ORDERABLES Performing Organization Address [facility] Phone Number [facility] [address] [place] [address] * HIGH SENSITIVITY C-REACTIVE PROTEIN (CARDIOVASCULAR DISEASE) (07/11/2020 17:40 EDT) [facility] High Sensitivity CRP 4.79 See Note mg/L 07/11/2020 19:08 EDT [facility] Comment: Reference Range: ??Source: [place] [employer] Clinical Practice Recommendations, 2003 ??Low Risk: ? <1.0 mg/L ??Average Risk: ?? 1.0 - 3.0 mg/L ??High Risk: ?>3.0 mg/L ??Indeterminate*: >10.0 mg/L ??*May be an indication of another source of inflammation or infection Blood VENOUS BLOOD / Unknown Venipuncture / Unknown 07/11/2020 17:40 EDT 07/11/2020 17:45 EDT Marguerite Carmens [employer] CHEMISTRY & BLOOD GA S ORDERABLES Performing Organization Address [facility] de Phone Number [facility] [address] [place] [address] * THYROID ANTIBODIES (07/11/2020 17:40 EDT) [facility] Anti-Thyroglobulin <15 <=60 U/mL 2020 20:37 EDT [facility] Thyroperoxidase Ab <28 <=60 U/mL 2020 20:37 EDT [facility] Blood VENOUS BLOOD / Unknown Venipuncture / Unknown 07/11/2020 17:40 EDT 07/11/2020 17:45 EDT Marguerite Giraldo [employer] CHEMISTRY & BLOOD GA S ORDERABLES Performing Organization Address City/[facility]/ZIP Co de Phone Number [facility] [address] [place] [address] * TSH (07/11/2020 17:40 EDT) TSH 1.83 0.47 - 4.68 uIU/mL 07/11/2020 19:39 EDT [facility] Blood VENOUS BLOOD / Unknown Venipuncture / Unknown 07/11/2020 17:40 EDT 07/11/2020 17:45 EDT Narrative [facility] - 07/11/2020 19:39 EDT The results of this assay can be falsely lowered due to the consumption of Biotin. Marguerite Giraldo [employer] CHEMISTRY & BLOOD GA S ORDERABLES Performing Organization Address [facility] Co de Phone Number [facility] [address] [place] [address] * T3 FREE (07/11/2020 17:40 EDT) T3, Free 3.0 2.8 - 5.3 pg/mL 07/11/2020 19:26 EDT [facility] Blood VENOUS BLOOD / Unknown Venipuncture / Unknown 07/11/2020 17:40 EDT 07/11/2020 17:45 EDT Marguerite Giraldo [employer] CHEMISTRY & BLOOD GA S ORDERABLES Performing Organization Address City/[facility]/ZIP Co de Phone Number [facility] [address] [place] [address] * T4 FREE (07/11/2020 17:40 EDT) T4, Free 1.1 0.8 - 2.2 ng/dL 07/11/2020 19:26 EDT [facility] Blood VENOUS BLOOD / Unknown Venipuncture / Unknown 07/11/2020 17:40 EDT 07/11/2020 17:45 EDT Marguerite Giraldo [employer] CHEMISTRY & BLOOD GA S ORDERABLES Performing Organization Address City/[facility]/ZIP Co de Phone Number [facility] [address] [place] [address] * FERRITIN (07/11/2020 17:40 EDT) Ferritin 44 10 - 291 ng/mL 07/11/2020 20:35 EDT [facility] Blood VENOUS BLOOD / Unknown Venipuncture / Unknown 07/11/2020 17:40 EDT 07/11/2020 17:45 EDT Marguerite Carmens Ritter CHEMISTRY & BLOOD GA S ORDERABLES Performing Organization Address City/[facility] Co de Phone Number [facility] [address] [place] [address] * CELIAC DISEASE PANEL (07/11/2020 17:40 EDT) Pathologist [facility] [place] Tissue Transglutaminase Antibody IGA <1.2 <4.0 U/mL 07/14/2020 13:14 EDT [facility] Comment: A negative result may be due to IgA deficiency and does not rule out celiac disease. ? Negative: ??<4.0 U/mL ? Weak Positive: ??4.0 - 10.0 U/mL ? Positive: ??>10.0 U/mL Results were obtained with the [employer] QUANTA Lite R h-tTG IgA RAMÍREZ assay on the [employer] DSX. IgA 270 85 - 499 mg/dL 07/14/2020 13:14 EDT [facility] Celiac Disease Interpretation Negative Serology. Celiac disease unlikely. Approximately 10% of patients with celiac disease are seronegative. Patients who are already adhering to a gluten-free diet may also be seronegative. If celiac disease is highly clinically suspected, referral to gastroenterology for additional evaluation is recommended. 07/14/2020 13:14 EDT [facility] Blood VENOUS BLOOD / Unknown Venipuncture / Unknown 07/11/2020 17:40 EDT 07/11/2020 17:45 EDT Marguerite Ritter IMMUNOLOGY AND SEROL OGY ORDERABLES Performing Organization Address [facility] Co de Phone Number [facility] [address] [place] [address] * ANTI NUCLEAR AB (PAN), IFA (07/11/2020 17:40 EDT) Pathologist [facility] [place] PAN Interpretation Negative Negative 2020 15:21 EDT [facility] Comment:No titer performed, PAN Screen is negative. Blood VENOUS BLOOD / Unknown Venipuncture / Unknown 07/11/2020 17:40 EDT 07/11/2020 17:45 EDT Narrative [facility] - 07/14/2020 15:21 EDT Results were obtained with the [employer] NOVA Lite HEp-2 PAN Kit by indirect immunofluorescence. Marguerite Kristal Ritter IMMUNOLOGY AND SEROL OGY ORDERABLES Performing Organization Address [facility] Co de Phone Number [facility] [address] [place] [address] * COMPREHENSIVE METABOLIC PANEL (CMP) (07/11/2020 17:40 EDT) Pathologist [facility] Sodium 140 136 - 145 mEq/L 07/11/2020 19:06 [facility] Potassium 4.5 3.5 - 5.0 mEq/L 07/11/2020 19:06 [facility] Chloride 102 96 - 110 mEq/L 07/11/2020 19:06 [facility] CO2 Total 23 22 - 32 mEq/L 07/11/2020 19:06 [facility] Glucose 75 70 - 100 mg/dL 07/11/2020 19:06 [facility] BUN 13 10 - 26 mg/dL 07/11/2020 19:06 [facility] Creatinine 0.65 0.52 - 1.04 mg/dL 07/11/2020 19:06 [facility] eGFR 127 >60 mL/min/1.7 3m2 07/11/2020 19:06 [facility] Comment:eGFR calculated usin g CKD-EPI equation for non- Americans. Multiply eGFR by 1.16 for patients. Total Protein 8.2 6.3 - 8.2 g/dL 07/11/2020 19:06 [facility] Albumin 4.7 3.4 - 4.9 g/dL 07/11/2020 19:06 [facility] Alkaline Phosphatase 80 38 - 126 U/L 07/11/2020 19:06 [facility] AST 30 15 - 46 U/L 07/11/2020 19:06 [facility] ALT 23 <35 U/L 07/11/2020 19:06 [facility] Bilirubin, Total <0.5 <1.4 mg/dL 07/12/19 19:06 [facility] Calcium 10.0 8.5 - 10.5 mg/dL 07/11/2020 19:06 [facility] Calculated Calcium 9.4 8.5 - 10.5 mg/dL 07/11/2020 19:06 [facility] Blood VENOUS BLOOD / Unknown Venipuncture / Unknown 07/11/2020 17:40 EDT 07/11/2020 17:45 EDT [facility]LOOD GA S ORDERABLES [facility] [address] [place] [address] documented in this encounter Visit Diagnoses Diagnosis Encounter for general adult medical examination with abnormal findings Unspecified general medical examination Dysthymic disorder Generalized anxiety disorder Chronic fatigue syndrome Migraine without status migrainosus, not intractable, unspecified migraine type Myalgia, unspecified site documented in this encounter Care Teams Wool Mixer Relationship Specialty Start Date End Date Renetta Velásquez, PAYTONC [address] [place] [address] PCP - General Family Medicine - [facility] Medicine 07/11/20 05/05/23 documented as of this encounter
--- OUTSIDE RECORDS SUMMARY | 2023-11-24 15:18 | XMS_ITS | Encounter Summary ---
Author Organization [facility] Address [address] [place] [address] Care Team Providers Care Metal Moulder'S Assistant Name Role Phone Unavailable Primary Care Provider Unavailabl e Encounter Details Date Type Department Care Team (Late st Contact Info) Description 07/25/2001 10:24 EDT - 07/25/2001 11:59 EDT Hospital Encounter [facility] [address] [place] [address] Gagan Madsen MD [address] [place] [phone] Discharge Disposition: Auto Discharge Social History Tobacco Use Types Packs/Day Years Used Date Smoking Tobacco: Never Assessed Sex and Gender Information Value Date Recorded Sex Assigned at Not on file Gender Identity Female 01/21/2020 16:11 EST Sexual Orientation Not on file documented as of this encounter Discharge Disposition Disposition Code Departure Means Destination Auto Discharge documented in this encounter Plan of Treatment Not on file documented as of this encounter Procedures Procedure Name Priority Date/Time Associated Diagnosis Comments CHEST PA AND LATERAL Routine 07/25/2001 10:52 EDT documented in this encounter Results * CHEST PA AND LATERAL (07/25/2001 10:52 EDT) Anatomical Region Laterality Modality Other 07/25/2001 10:5 2 EDT Narrative 11/20/2008 5:16 EDT 1 1/2 YEAR OLD WITH COUGH X 6 MONTHS ??R/O ASTHMA ??( HYPERINFLATION) . INFILTRATE ??PERIBRONCHIAL THICKENING CHEST TWO VIEWS: 07/25/01 TIME: 1035 CLINICAL HISTORY: 2-1/2 year old with cough for six months. Rule out asthma, infiltrate, peribronchial thickening. PA and lateral views of the chest show that the cardiac silhouette is within normal limits and the lung conley are clear. No infiltrate is seen. Stomach appears to be quite distended with both air and fluid. /seema Procedure Note Jaylan Reyes MD - 11/20/2008 2 1/2 YEAR OLD WITH COUGH X 6 MONTHS R/O ASTHMA ( HYPERINFLATION) . INFILTRATE PERIBRONCHIAL THICKENING CHEST TWO VIEWS: 07/25/01 TIME: 1035 CLINICAL HISTORY: 2-1/2 year old with cough for six months. Rule out asthma, infiltrate, peribronchial thickening. PA and lateral views of the chest show that the cardiac silhouette is within normal limits and the lung conley are clear. No infiltrate is seen. Stomach appears to be quite distended with both air and fluid. /[facility] Gagan Madsen MD IMG DIAGNOSTIC IMAGI NG ORDERABLES documented in this encounter Visit Diagnoses Not on filedocumented in this encounter
--- OUTSIDE RECORDS SUMMARY | 2023-11-24 15:18 | XMS_ITS | Encounter Summary ---
Author Organization [facility] Address [address] [place] [address] Care Team Providers Care Marketing Communications Manager Name Role Phone Patience CoreasP-Kwasi Primary Care Provider [phone] Encounter Details Date Type Department Care Team (Latest Contact Info) Description 01/22/2020 9:50 EST Phlebotomy Only [facility] [employer] [id number] [place] [address] Contact with and (suspected) exposure to other viral communicable diseases Social History Tobacco Use Types Packs/Day Years [...] Procedure Name Priority Date/Time Associated Diagnosis Comments ZZCOVID-19 TEST [facility] PCR Today 01/22/2020 9:55 EST Contact with and (suspected) exposure to other viral communicable diseases COVID-19 TESTING Routine 01/22/2020 9:55 EST Contact with and (suspected) exposure to other viral communicable diseases documented in this encounter Results * COVID-19 TEST [facility] PCR (01/22/2020 9:55 EST) Swab ENTIRE NASOPHARYNX / Unknown Swab / Unknown 01/22/2020 9:55 EST 01/22/2020 9:55 EST Patience FLORES MICROBIOLOGY - GENE RAL ORDERABLES Performing Organization Address [facility] de Phone Number [facility] [address] [place] [address] * COVID-19 TESTING (01/22/2020 9:55 EST) COVID-19 rt-PCR Result Negative Negative 01/23/2020 15:[address] [facility] Comment: Negative results do not preclude 2019-nCoV infection and should not be used as the sole basis for treatment or other patient management decisions. Negative results must be combined with clinical observations, patient history, and epidemiological information. This test was developed and its performance characteristics determined by [facility]. It has not been cleared or [...] defined by the FDA Performed on the [employer] 7 Flex. Performing Lab [employer] 7 [facility] 01/23/2020 15:[address] [facility] Swab ENTIRE NASOPHARYNX / Unknown Swab / Unknown 01/22/2020 9:55 EST 01/22/2020 9:55 EST Patience FLORES MICROBIOLOGY - GENE RAL ORDERABLES Performing Organization Address [facility] Co de Phone Number [facility] [address] [place] [address] documented in this encounter Visit Diagnoses Diagnosis Contact with and (suspected) exposure to other viral communicable diseases documented in this encounter Care Teams Marketing Communications Manager Relationship Specialty Start Date End Date Patience Coreas FNP-C PCP - General 09/27/19 07/10/20 documented as of this encounter
--- OUTSIDE RECORDS SUMMARY | 2023-11-24 15:18 | XMS_ITS | Encounter Summary ---
Author Organization [facility] Address [address] [place] [address] Care Team Providers Care Lease Analyst Name Role Phone Renetta Velásquez APPLICATION SECURITY ENGINEER-C Primary Care Provider [phone] Encounter Details Date Type Department Care Team (Latest Contact Info) Description 09/09/2020 Travel Social History Tobacco Use Types Packs/Day [...] 18:08 EDT documented as of this encounter Plan of Treatment Not on file documented as of this encounter Visit Diagnoses Not on filedocumented in this encounter Care Teams Lease Analyst Relationship Specialty Start Date End Date Renetta Velásquez, APPLICATION SECURITY ENGINEER-C [address] [place] [address] PCP - General Family Medicine - [facility] Medicine 07/11/20 05/05/23 documented as of this encounter
--- OUTSIDE RECORDS SUMMARY | 2023-11-24 15:18 | XMS_ITS | Encounter Summary ---
Author Organization [facility] Address [address] [place] [address] Care Team Providers Care Packaging Tech Name Role Phone ChristenRenetta VINE FRUIT FARMING SUPERVISOR-C Primary Care Provider [phone] Encounter Details Date Type Department Care Team (Latest Contact Info) Description 07/17/2020 Transcribe Orders Non [facility] Ancillary Services Marguerite Ritter [address] [place], [place] [id number] Encounter for general adult medical examination with [...] as of this encounter Results * (ABNORMAL) COMPLETE BLOOD COUNT AND DIFFERENTIAL (07/17/2020 12:25 EDT) WBC 8.82 4.00 - 12.40 K/cmm 07/17/2020 14:52 [facility] RBC 4.53 3.86 - 5.04 M/cmm 07/17/2020 14:52 [facility] Hemoglobin 13.5 11.6 - 15.2 gm/dL 07/17/2020 14:52 [facility] HCT 40.8 34.9 - 44.4 % 07/17/2020 14:52 [facility] MCV 90 81 - 98 fl 07/17/2020 14:52 [facility] MCH 29.8 26.7 - 33.3 pg 07/17/2020 14:52 [facility] MCHC 33.1 32.1 - 35.9 gm/dL 07/17/2020 14:52 [facility] RDW-CV 13.2 <14.7 % 07/17/2020 14:52 [facility] RDW-SD 43.9 <50.4 fl 07/17/2020 14:52 [facility] PLT 271 141 - 377 K/cmm 07/17/2020 14:52 [facility] MPV 12.2 9.5 - 12.7 fl 07/17/2020 14:52 [facility] % Neutrophils 55.2 % 07/17/2020 14:52 [facility] % Lymphocytes 29.6 % 07/17/2020 14:52 [facility] % Monocytes 9.8 % 07/17/2020 14:52 [facility] % Eosinophils 4.1 % 07/17/2020 14:52 [facility] % Basophils 1.0 % 07/17/2020 14:52 [facility] % Immature Grans 0.3 % 07/18/19 14:52 [facility] Absolute Neutrophils 4.87 2.20 - 8.85 K/cmm 07/17/2020 14:52 [facility] Absolute Lymphocytes 2.61 1.09 - 3.30 K/cmm 07/17/2020 14:52 [facility] Absolute Monocytes 0.86(H) 0.10 - 0.80 K/cmm 07/17/2020 14:52 [facility] Absolute Eosinophils 0.36 0.03 - 0.61 K/cmm 07/17/2020 14:52 [facility] ABS Basophils 0.09 0.01 - 0.11 K/cmm 07/17/2020 14:52 [facility] Absolute Immature Grans 0.03 0.00 - 0.06 K/cmm 07/17/2020 14:52 [facility] Type of Differential: Auto 07/17/2020 14:52 [facility] Blood VENOUS BLOOD / Unknown Venipuncture / Unknown 07/17/2020 12:25 EDT 07/17/2020 12:25 EDT Marguerite Ritter PACKAGES & DNA PROBE ORDERABLES [facility] [address] [place] [address] * HEMOGLOBIN A1C (07/17/2020 12:25 EDT) Hemoglobin A1c 5.2 <5.7 % 07/17/2020 19:23 [facility] Comment: New methodology in use [...] Est Avg Glucose 103 mg/dL 19:23 EDT [facility] Comment:The eAG represents t he A1c result expressed as average glucose in mg/dL. Blood VENOUS BLOOD / Unknown Venipuncture / Unknown 07/17/2020 12:25 EDT 07/17/2020 12:25 EDT Marguerite Ritter CHEMISTRY & BLOOD GA S ORDERABLES [facility] [address] [place] [address] documented in this encounter Visit Diagnoses Diagnosis Encounter for general adult medical examination with abnormal findings- Primary Unspecified general medical examination Dysthymic disorder Generalized anxiety disorder Chronic fatigue syndrome Migraine without status migrainosus, not intractable, unspecified migraine type Myalgia, unspecified site documented in this encounter Care Teams Packaging Tech Relationship Specialty Start Date End Date Renetta Velásquez, VINE FRUIT FARMING SUPERVISOR-C [address] [facility] [address] [place] [address] PCP - General Family Medicine - [facility] Medicine 07/11/20 05/05/23 documented as of this encounter
--- OUTSIDE RECORDS SUMMARY | 2023-11-24 15:18 | XMS_ITS | Encounter Summary ---
Author Organization [facility] Address [address] [place] [address] Care Team Providers Care Blade Balancer Name Role Phone Renetta Velásquez OCEANOGRAPHIC METEOROLOGIST-C Primary Care Provider [phone] Lorrie Prater MD Primary Care Provider [phone] Encounter Details Date Type Department Care Team (Late st Contact Info) Description 07/17/2020 Orders Only Non [facility] Ancillary Services Clementina Feliz Encounter for general adult medical examination with [...] site documented in this encounter Care Teams Blade Balancer Relationship Specialty Start Date End Date Renetta Velásquez, OCEANOGRAPHIC METEOROLOGIST-C [address] [place] [address] PCP - General Family Medicine - [facility] Medicine 07/11/20 05/05/23 Lorrie Prater MD [address] [place] [address] PCP - General 05/06/23 documented as of this encounter
--- OUTSIDE RECORDS SUMMARY | 2023-11-24 15:18 | XMS_ITS | Encounter Summary ---
Author Organization [facility] Address [address] [place] [address] Care Team Providers Care Director Name Role Phone Lucie Hilton MD Primary Care Provider Patience Coraes WAREHOUSE LOADER-C Primary Care Provider Renetta Velásquez FRONT END DEVELOPER-C Primary Care Provider Lorrie Prater MD Primary Care Provider Encounter Details Date Type Department Care Team (Late st Contact Info) Description 07/23/2019 Lab Requisition [facility] Pathology & Laboratory Medicine - [facility] [address] [place] [address] Troy Acosta MD [address] [place] [phone] Encounter for screening for other viral diseases Social History Tobacco Use Types Packs/Day Years Used Date Smoking Tobacco: Never Assessed Sex and Gender Information Value Date Recorded Sex Assigned at Not on file Gender Identity Female 01/21/2020 16:11 EST Sexual Orientation Not on file documented as of this encounter Plan of Treatment Not on file documented as of this encounter Procedures Procedure Name Priority Date/Time Associated Diagnosis Comments DO NOT ORDER STANDALONE - BROAD COVID TEST Today 07/23/2019 11:45 EDT Encounter for screening for other viral diseases COVID-19 TESTING Today 07/23/2019 11:4 5 EDT Encounter for screening for other viral diseases documented in this encounter Results * DO NOT ORDER STANDALONE - BROAD COVID TEST (07/23/2019 11:45 EDT) Pathologist [facility] COVID-19 rt-PCR Result NEGATIVE Negative 07/24/2019 12:09 EDT [facility] Comment: 2019-novel Coronavirus (2019-nCoV) not detected by the qRT-PCR assay. Consider testing for other respiratory viruses or re-collecting for 2019-nCoV testing. Note: Optimum timing for peak viral levels during infections caused by 2019-nCoV have not been determined. Collection of multiple specimens from the same patient may be necessary to detect the virus. Limitations Positive results are indicative of active infection with SARS-CoV-2 but do not rule out bacterial infection or co-infection with other viruses. The agent detected may not be the definite cause of disease. In addition, detection of viral RNA may not indicate the presence of infectious virus or that SARS-CoV-2 is the causative agent for clinical symptoms. Negative results do not preclude SARS-CoV-2 infection and should not be used as the sole basis for patient management decisions. Negative results must be combined with clinical observations, patient history, and epidemiological information. False negative results may also occur if amplification inhibitors are present in the specimen or if inadequate numbers of organisms are present in the specimen. Optimum specimen types and timing for peak viral levels during infections caused by SARS-CoV-2 have not been fully determined. Collection of multiple specimens (types and time points) from the same patient may be necessary to detect the virus. The test was validated for use with upper respiratory specimens obtained via nasopharyngeal or oropharyngeal swabs in VTM, UTM, M4, M5, M6, saline, and MTM media. The performance of this test has not been established for other specimens. Specimens collected using other FDA recommended Specimen Collection Materials listed in the FDA COVID-19 [employer] communication (May 03, 2019) are processed with the caveat that they were not all validated for use with this test and the result must be interpreted in this context. Furthermore, a false negative results may occur if a specimen is improperly collected, transported or handled. If the virus mutates in the RT-PCR target region, SARS-CoV-2 may not be detected or may be detected less predictably. Inhibitors or other types of interference may produce a false negative result. An interference study evaluating the effect of common cold medications was not performed. This test is not FDA-cleared but its performance characteristics were established by our CLIA-certified, CAP-accredited, high complexity laboratory in accordance with CLIA regulations, College of [employer] (CAP) guidelines (Apr 26, 2019), and FDA guidance (Apr 07, 2019). This test is only for use under the Food and Drug Administration's Emergency Use Authorization. Swab ENTIRE NASOPHARYNX / Unknown Swab / Unknown 07/23/2019 11:45 EDT 07/23/2019 16:04 EDT Troy Acosta MD MICROBIOLOGY - GENER AL ORDERABLES JANE [place], [place] * COVID-19 TESTING (07/23/2019 11:45 EDT) COVID-19 rt-PCR Result NEGATIVE Negative 07/24/2019 14:40 EDT [facility] Comment: 2019-novel Coronavirus (2019-nCoV) not detected by the qRT-PCR assay. Consider testing for other respiratory viruses or re-collecting for 2019-nCoV testing. Note: Optimum timing for peak viral levels during infections caused by 2019-nCoV have not been determined. Collection of multiple specimens from the same patient may be necessary to detect the virus. Limitations Positive results are indicative of active infection with SARS-CoV-2 but do not rule out bacterial infection or co-infection with other viruses. The agent detected may not be the definite cause of disease. In addition, detection of viral RNA may not indicate the presence of infectious virus or that SARS-CoV-2 is the causative agent for clinical symptoms. Negative results do not preclude SARS-CoV-2 infection and should not be used as the sole basis for patient management decisions. Negative results must be combined with clinical observations, patient history, and epidemiological information. False negative results may also occur if amplification inhibitors are present in the specimen or if inadequate numbers of organisms are present in the specimen. Optimum specimen types and timing for peak viral levels during infections caused by SARS-CoV-2 have not been fully determined. Collection of multiple specimens (types and time points) from the same patient may be necessary to detect the virus. The test was validated for use with upper respiratory specimens obtained via nasopharyngeal or oropharyngeal swabs in VTM, UTM, M4, M5, M6, saline, and MTM media. The performance of this test has not been established for other specimens. Specimens collected using other FDA recommended Specimen Collection Materials listed in the FDA COVID-19 [employer] communication (May 03, 2019) are processed with the caveat that they were not all validated for use with this test and the result must be interpreted in this context. Furthermore, a false negative results may occur if a specimen is improperly collected, transported or handled. If the virus mutates in the RT-PCR target region, SARS-CoV-2 may not be detected or may be detected less predictably. Inhibitors or other types of interference may produce a false negative result. An interference study evaluating the effect of common cold medications was not performed. This test is not FDA-cleared but its performance characteristics were established by our CLIA-certified, CAP-accredited, high complexity laboratory in accordance with CLIA regulations, College of [place] [employer] (CAP) guidelines (Apr 26, 2019), and FDA guidance (Apr 07, 2019). This test is only for use under the Food and Drug Administration's Emergency Use Authorization. Performing Lab [facility] 07/24/2019 14:40 EDT [facility] Swab Swab / Unknown 07/23/2019 11 :45 EDT 07/23/2019 16:04 EDT Troy Acosta MD MICROBIOLOGY - [facility] ORDERABLES [facility] [address] [place] [address] [facility] [place], [place] documented in this encounter Visit Diagnoses Diagnosis Encounter for screening for other viral diseases documented in this encounter Care Teams Director Relationship Specialty Start Date End Date Lucie Hilton MD [address] [phone] PCP - General 06/05/18 09/26/19 Patience Coreas, WAREHOUSE LOADER-C [address] [address] PCP - General 09/27/19 07/10/20 Renetta Velásquez NP-C [address] [facility] [address] [place] [phone] PCP - General Family Medicine - [facility] Medicine 07/11/20 05/05/23 Lorrie Prater MD [address] [place] [address] PCP - General 05/06/23 documented as of this encounter
--- OUTSIDE RECORDS SUMMARY | 2023-11-24 15:18 | XMS_ITS | Encounter Summary ---
Author Organization [facility] Address [address] [place] [address] Care Team Providers Care Waste Removalist Name Role Phone Simona Ambriz NP Primary Care Provider [phone] Encounter Details Date Type Department Care Team (Latest Contact Info) Description 04/16/2016 13:04 EST - 04/16/2016 23:59 EST Hospital Encounter [facility] [address] [place] [address] Tessie Juarez MD [address] [phone] Discharge Disposition: Auto Discharge Social History Tobacco Use Types Packs/Day Years Used Date Smoking Tobacco: Never Assessed Sex and Gender Information Value Date Recorded Sex Assigned at Not on file Gender Identity Female 01/21/2020 16:11 EST Sexual Orientation Not on file documented as of this encounter Discharge Diagnoses Diagnosis 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 pediatric multivitamin (ANGEL CHEW VIT) chewable tablet Take 1 Tab by mouth daily. documented as of this encounter Discharge Disposition Disposition Code Departure Means Destination Auto Discharge Home documented in this encounter Plan of Treatment Not on file documented as of this encounter Visit Diagnoses Not on filedocumented in this encounter Care Teams Waste Removalist Relationship Specialty Start Date End Date Simona Ambriz NP PCP - General 10/01/15 06/04/18 documented as of this encounter
--- OUTSIDE RECORDS SUMMARY | 2023-11-24 15:18 | XMS_ITS | Encounter Summary ---
Author Organization [facility] Address [address] [place] [address] Care Team Providers Care Supervisor [employer] Name Role Phone Unavailable Primary Care Provider Unavailabl e Encounter Details Date Type Department Care Team (Latest Contact Info) Description 01/27/2003 9:25 EST - 01/27/2003 11:59 EST Hospital Encounter [facility] Emergency Department - [facility] [address] [place] [address] Emergency, Default, MD Discharge Disposition: Home or Self Care Social [...]
--- OUTSIDE RECORDS SUMMARY | 2023-11-24 15:18 | XMS_ITS | Encounter Summary ---
Author Organization [facility] Address [address] [place] [address] Care Team Providers Care Snagger Name Role Phone Simona Ambriz NP Primary Care Provider [phone] Reason for Visit * Reason Onset Date Comments Appointment Related 10/21/2015 Encounter Details Date Type Department Care Team (Late st Contact Info) Description 10/21/2015 Telephone [facility] Pediatric Endocrinology - [address] [phone] Julien Lutz [address] [address] Appointment Related Social History Tobacco Use Types Packs/Day Years Used Date Smoking Tobacco: Never Assessed Sex and Gender Information Value Date Recorded Sex Assigned at Not on file Gender Identity Female 01/21/2020 16:11 EST Sexual Orientation Not on file documented as of this encounter Miscellaneous Notes * Telephone Encounter - Chioma Wilburn - 10/21/2015 1153 EDT Linwood Orlando's mom, is calling to see if you have received Thyroid and u/s test results from [facility]- Dr.Susan Morales's office. They would like to make an appt as soon as results have been reviewed. Please give her a call- at work- [phone] documented in this encounter Plan of Treatment Not on file documented as of this encounter Visit Diagnoses Not on filedocumented in this encounter Care Teams Snagger Relationship Specialty Start Date End Date Simona Ambriz NP PCP - General 10/01/15 06/04/18 documented as of this encounter
--- OUTSIDE RECORDS SUMMARY | 2023-11-24 15:18 | XMS_ITS | Encounter Summary ---
Author Organization [facility] Address [address] [place] [address] Care Team Providers Care Kiln Stoker Name Role Phone Johanny Alexandre Gabby SCIENTIFIC SOFTWARE ENGINEER Primary Care Provider [phone] Encounter Details Date Type Department Care Team (Late st Contact Info) Description 08/06/2015 Results Only [facility] [phone] Simona Ambriz NP [address] [place] [phone] Social History Tobacco Use Types Packs/Day Years Used Date Smoking Tobacco: Never Assessed Sex and Gender Information Value Date Recorded Sex Assigned at Not on file Gender Identity Female 01/21/2020 16:11 EST Sexual Orientation Not on file documented as of this encounter Plan of Treatment Not on file documented as of this encounter Procedures Procedure Name Priority Date/Time Associated Diagnosis Comments T3 FREE Routine 08/06/2015 11:30 EDT TSH Routine 08/06/2015 11:30 EDT T4 FREE Routine 08/06/2015 11:30 EDT documented in this encounter Results * TSH (08/06/2015 11:30 EDT) TSH 1.59 0.51 - 4.94 uIU/ml 08/06/2015 17:04 EDT [facility] BLOOD SPECIMEN / Unknown 08/06/2015 11:30 EDT 08/06/2015 14:21 EDT Simona Ambriz NP CHEMISTRY & BLOOD GA S ORDERABLES Performing Organization Address [facility]/ZIP Co de Phone Number [facility] [address] [place] [address] * T4 FREE (08/06/2015 11:30 EDT) Free T4 1.1 0.8 - 1.4 ng/dl 08/06/2015 16:59 EDT [facility] BLOOD SPECIMEN / Unknown 08/06/2015 11:30 EDT 08/06/2015 14:21 EDT Simona Ambriz NP CHEMISTRY & BLOOD GA S ORDERABLES Performing Organization Address [facility] Co de Phone Number [facility] [address] [place] [address] * T3 FREE (08/06/2015 11:30 EDT) T3, Free 3.0 3.0 - 4.7 pg/mL 08/06/2015 16:59 EDT [facility] BLOOD SPECIMEN / Unknown 08/06/2015 11:30 EDT 08/06/2015 14:21 EDT Simona Ambriz NP CHEMISTRY & BLOOD GA S ORDERABLES Performing Organization Address [facility] Co de Phone Number [facility] [address] [place] [address] documented in this encounter Visit Diagnoses Not on filedocumented in this encounter Care Teams Kiln Stoker Relationship Specialty Start Date End Date Johanny Alexandre, SCIENTIFIC SOFTWARE ENGINEER [facility] [place] [phone] PCP - General 06/14/14 09/30/15 documented as of this encounter
--- OUTSIDE RECORDS SUMMARY | 2023-11-24 15:18 | XMS_ITS | Encounter Summary ---
Author Organization [facility] Address [address] [place] [address] Care Team Providers Care Field Artillery Targeting Technician Name Role Phone Unavailable Primary Care Provider Unavailabl e Encounter Details Date Type Department Care Team (Latest Contact Info) Description 06/11/2014 14:45 EDT - 06/11/2014 14:46 EDT Hospital Encounter [address] [address] Simona Ambriz, REEMA [address] [place] [address] [place] [phone] Discharge Disposition: Home or Self Care Social History Tobacco Use Types Packs/Day Years Used Date Smoking Tobacco: Never Assessed Sex and Gender Information Value Date Recorded Sex Assigned at Not on file Gender Identity Female 01/21/2020 16:11 EST Sexual Orientation Not on file documented as of this encounter Discharge Diagnoses Diagnosis 599.0 URIN TRACT INFECTION NOS[ICD-9-CM] documented in this encounter Discharge Disposition Disposition Code Departure Means Destination Home or Self Care documented in this encounter Plan of Treatment Not on file documented as of this encounter Visit Diagnoses Not on filedocumented in this encounter
--- OUTSIDE RECORDS SUMMARY | 2023-11-24 15:18 | XMS_ITS | Encounter Summary ---
Author Organization [facility] Address [address] [place] [address] Care Team Providers Care Event Promoter Name Role Phone Lucie Hilton MD Primary Care Provider Pateince Coreas PROFILE TRIMMER-C Primary Care Provider Renetta Velásquez HOME WEATHERIZING WORKER-C Primary Care Provider [phone] Lorrie Prater MD Primary Care Provider [phone] Encounter Details Date Type Department Care Team (Late st Contact Info) Description 09/13/2019 Lab Requisition [facility] Pathology & Laboratory Medicine - [facility] [address] [place] [address] Patience Coreas, PROFILE TRIMMER-C [address] [place] [phone] Encounter for general adult medical examination without [...] Associated Diagnosis Comments CHLAMYDIA/N. GONORRHOEAE AMPLIFIED NUCLEIC ACID Today 09/13/2019 9:05 EDT Encounter for general adult medical examination without abnormal findings documented in this encounter Results * CHLAMYDIA/N. GONORRHOEAE AMPLIFIED RNA (09/13/2019 9:05 EDT) Neisseria gonorrhoeae Result Negative Negative 09/14/2019 14:06 EDT [facility] Chlamydia trachomatis Result Negative Negative 09/14/2019 14:06 EDT [facility] Swab ENTIRE VAGINA / Unknown 09/13/2019 9:05 EDT 09/13/2019 14:31 EDT Patience Coreas PROFILE TRIMMER-C MICROBIOLOGY - GENE RAL ORDERABLES [facility] [address] [place] [address] documented in this encounter Visit Diagnoses Diagnosis Encounter for general adult medical examination without abnormal findings Unspecified general medical examination documented in this encounter Care Teams Event Promoter Relationship Specialty Start Date End Date Lucie Hilton MD [address] [id number] PCP - General 06/05/18 09/26/19 Patience Coreas, PREETI-C [address] [id number] PCP - General 09/27/19 07/10/20 Renetta Velásquez NP-C [address] [id number] PCP - General Family Medicine - [facility] Medicine 07/11/20 05/05/23 Lorrie Prater MD [address] [place] [address] PCP - General 05/06/23 documented as of this encounter
--- OUTSIDE RECORDS SUMMARY | 2023-11-24 15:18 | XMS_ITS | Encounter Summary ---
Author Organization [facility] Address [address] [place] [address] Care Team Providers Care Industrial Sweeper Cleaner Name Role Phone Simona Ambriz NP Primary Care Provider [phone] Reason for Visit * Reason Onset Date Comments Results 04/19/2016 Encounter Details Date Type Department Care Team (Late st Contact Info) Description 04/19/2016 Telephone [facility] Pediatric Endocrinology - [facility] [address] [place] [address] Jaida Hernandez, RN [address] [place] [address] Results Social History Tobacco Use Types Packs/Day Years Used Date Smoking Tobacco: Never Assessed Sex and Gender Information Value Date Recorded Sex Assigned at Not on file Gender Identity Female 01/21/2020 16:11 EST Sexual Orientation Not on file documented as of this encounter Miscellaneous Notes * Telephone Encounter - Jaida Hernandez RN - 04/20/2016 1005 EDT [place] has an appt to see Dr. Juarez on 04/22/16 & can discuss results then. * Telephone Encounter - Jaida Hernandez RN - 04/19/2016 1539 EDT ----- Message from Tessie Juarez MD sent at 04/19/2016 12:09 EDT ----- Tiny cysts, otherwise normal ultrasound, not concerning findings, no need to repeat thyroid ultrasound unless new concerns arise. documented in this encounter Plan of Treatment Not on file documented as of this encounter Visit Diagnoses Not on filedocumented in this encounter Care Teams Industrial Sweeper Cleaner Relationship Specialty Start Date End Date Simona Ambriz NP PCP - General 10/01/15 06/04/18 documented as of this encounter
--- OUTSIDE RECORDS SUMMARY | 2023-11-24 15:18 | XMS_ITS | Encounter Summary ---
Author Organization [facility] Address [address] [place] [address] Care Team Providers Care Drawing Checker Name Role Phone Simona Ambriz NP Primary Care Provider [phone] Reason for Visit * Reason Comments Goiter Encounter Details Date Type Department Care Team (Latest Contact Info) Description 11/24/2015 13:00 EDT Office Visit [facility] Pediatric Endocrinology - [facility] [address] [place], [place] [id number] Tessie Juarez MD [address] [phone] Goiter (Primary Dx); Multiple thyroid nodules Social History Tobacco Use Types Packs/Day Years Used Date Smoking Tobacco: Never Assessed Sex and Gender Information Value Date Recorded Sex Assigned at Not on file Gender Identity Female 01/21/2020 16:11 EST Sexual Orientation Not on file documented as of this encounter Last Filed Vital Signs Vital Sign Reading Time Taken Comments Blood Pressure 122/77 11/24/2015 1309 EDT Pulse 127 11/24/2015 1309 EDT Temperature - - Respiratory Rate - - Oxygen Saturation - - Inhaled Oxygen Concentration - - Weight 52.2 kg (115 lb 1.3 oz) 11/24/2015 1309 E DT Height 162.6 cm (5' 4.02) 11/24/2015 1309 EDT Body Mass Index 19.74 11/24/2015 1309 EDT Body Mass Index Percentile 35.67% 11/24/2015 130 9 EDT Growth Chart: CDC (Girls, 2- 20 Years) documented in this encounter Progress Notes * Tessie Juarez MD - 11/24/2015 1300 EDT Pediatric Endocrinology Consult Patient Identification: 15 y.o. 8 m.o. old female Reason for consultation: goiter and positive family history of thyroid disease Date of service: 11/24/2015 Requesting Provider: Simona Ambriz Primary Care Provider: Simona Ambriz History obtained from: patient, mother and chart review HPI: During routine physical 07/2015 PCP noted an enlarged thyroid gland. In the view of positive family history of thyroid disease, [place] had TFTs done, results were normal including negative anti-thyroid antibodies. Her thyroid ultrasound report described heterogeneous thyroid gland, increased vascularity and nodules in both lobes, all under 5 mm, with no concerning ultrasonographic findings. [place] was not aware of thyroid enlargement, denies dysphagia or voice changes. She had no prior head or neck radiation. Regarding her positive family history of thyroid disease: Mother was diagnosed with euthyroid goiter at age 23, had previously negative thyroid antibodies. She has been treated with thyroid hormone supplements, initially LT4, currently mix of LT4 and LT3 with reported subjective decrease in goiter size and resolution of symptoms which would go along with hypothyroidism (despite her being biochemically euthyroid). Maternal grandmother underwent radioactive iodine treatment in [...] known intellectual disability, no early hearing loss. Positive for: Migraine headaches for the last 3-4 months, on average one per week, triggered by fatigue, localized to left side of the face and head, not associated with nausea or emesis, no visual changes, phonophobia and photophobia, ibuprofen usually helps if she takes it early on, otherwise rest helps Wears glasses since age 9, she is nearsighted and has astigmatism, her prescription recently increased slightly Anxiety and depression; long-standing, previously was on Zoloft for about 9 mo with no improvement,started seeing therapist but did not like several she met so that currently she is off rx for mental health and without therapist; family feels improvement was noted since she is home schooled Tendency to be constipated, started probiotics and noted some improvement, also limits daily intakeand tries to eat less wheat Temperature intolerance, generally feels cold compared to others, with anxiety attacks gets really warm Hair loss, diffuse, long-standing and unchanged, no bold spots, no skin or nail changes Negative for: voice hoarseness, dysphagia, fatigue, appetite change, skin change, tremor, palpitations, difficulty concentrating and diffuculty sleeping Reached menarche at age 10 or 11, her periods were typically every 4-6 weeks, lasted 8 days with moderate intensity of bleeding. She was started on OCPs about 18 months ago for contraception, tolerates them well. Her periods arelighter and shorter, also her acne is better now. Review of Systems: A ten point review of systems was performed. Pertinent items are noted in the HPI, all others are negative. Problem List There are no active problems to display for this patient. Past Medical History: Past Medical History Diagnosis Date ??? Anxiety ??? Depressive disorder History: Length: inches Weight: One: Two: Ten: Delivery Method: Gestational Age: Comments: Medications: Current Outpatient Prescriptions Medication Sig ??? ascorbic acid, vitamin C, (VITAMIN C) 500 mg tablet Take 1,000 mg by mouth daily. ??? cholecalciferol, Vitamin D3, 1,000 unit tablet Take 3,000 Units by mouth daily. ??? LACTOBACILLUS ACIDOPHILUS (PROBIOTIC ORAL) Take by mouth. ??? levonorgestrel-ethinyl estradiol (ORSYTHIA) 0.1-20 mg-mcg per tablet Take 1 Tab by mouth daily. ??? pediatric multivitamin (ANGEL CHEW VIT) chewable tablet Take 1 Tab by mouth daily. Allergies: No Known Allergies Social History: Living Conditions ??? Lives with Parents Weekdays ??? Education Grade 12 ??? Home Schooled Yes Family History: Family History as of 11/24/2015 Problem Relation Name Comments Diabetes Paternal Grandmother No Known Brother M 1/2 Thyroid Disease Mother Thyroid Disease Maternal Grandmother Thyroid Disease Other MGGM Hearing Loss Neg Hx Infertility Neg Hx Physical Exam: Vitals: Visit Vitals ??? BP 122/77 ??? Pulse (!) 127 ??? Ht 162.6 cm (64.02) ??? Wt 52.2 kg (115 lb 1.3 oz) ??? BMI 19.74 kg/m2 Blood pressure percentiles are 83.8 % systolic and 83.6 % diastolic based on NHBPEP's 4th Report. Height: 162.6 cm (64.02) (49 %, Z= -0.04, Source: [facility] 2-20 Years) Weight: 52.2 kg (115 lb 1.3 oz) (38 %, Z= -0.32, Source: [facility] 2-20 Years) Body mass index is 19.74 kg/(m^2). 36 %ile based on [facility] 2-20 Years BMI-for-age data using vitals from 11/24/2015. General Appearance: comfortable, well-hydrated and in no apparent distress Dysmorphisms: none appreciated Head: normocephalic ENT: moist mucous membranes Eyes: EOMI and ALEXSANDER Thyroid: top-normal volume, homogenous, no palpable nodularity and nontender Lymphatic: no palpable lymphadenopathy of neck Respiratory: clear, no wheezes or crackles and good air entry bilaterally Cardiovascular: RRR and normal S1 and S2 Gastrointestinal: benign, soft, non-tender and no palpable masses Neurologic: cranial nerves II-XII intact, no tremor and good tone Musculoskeletal: no appreciable bony deformities Skin: normal temperature, normal texture, normal turgor, no hirsutism and minimal facial acne Sexual Development: breasts Lion stage 4 Data Review/Investigations: Date: 08/06/15 TSH 1.59, free T4 1.1 and free T3 3.0 (3-4.7) Date: 10/01/15 TPO negative, thyroglobulin negative and vitamin D 34.1 Date: 08/30/15-report was scanned to electronic medical records, will request for ultrasound to be pushed to our system. Thyroid ultrasound with heterogeneous thyroid echotexture, increased vascularity. Nodularity is in both lobes, under 5 mm. Previous Growth Data: reviewed growth curves provided by referring physician, scanned to electronic medical records Assessment: 15 y.o. 8 m.o. old female fullness over thyroid bed, no palpated nodularity. Clinically euthyroid on exam today. Biochemically euthyroid as of 07/2015. [place]wood had negative onto thyroid antibodies. Ultrasonographic findings suggestive of thyroiditis; nodules < 5 mm reported without concerning U/S features. She has no prior history of head or neck radiation, has family history of thyroid disease, a lot ofdetails are missing. Risk factors for thyroid disease: family history of thyroid disease Suspected diagnosis: adolescent colloidal goiter in the view of negative antibodies although familyhistory of thyroid disease would point more to autoimmune process Cause of adolescent colloidal goiter is not known. Thyroid gland is usually diffusely enlarged but it can be asymmetric or nodular. Thyroid function and serum antithyroid antibody concentrations are normal. Goiter usually gradually decreases in size over several years; the course is not altered by T4 therapy. Suggestions/Plan: Investigations: none at this time Topics reviewed today: need for repeat thyroid ultrasound to assess for interval changes symptoms and signs of hypothyroidism and hyperthyroidism possible cause of goiter Medications prescribed: none Additional recommendations: none Disposition: follow up in Endocrine clinic in 6 months with repeat thyroid ultrasound at the time of visit I spent a total of 50 minutes in face to face time with this patient and 45 minutes of that time was spent in counseling and coordination of care as described in the progress note. Tessie Juarez MD 11/24/2015 documented in this encounter Plan of Treatment Not on file documented as of this encounter Visit Diagnoses Diagnosis Goiter- Primary Goiter, unspecified Multiple thyroid nodules Nontoxic multinodular goiter documented in this encounter Historical Medications * This list may reflect changes made after this encounter. Medication Sig Dispensed Refills Start Date End Date LACTOBACILLUS ACIDOPHILUS (PROBIOTIC ORAL) Take by mouth. cholecalciferol, Vitamin D3, 1,000 unit tablet Take 2,000 Units by mouth daily. ascorbic acid, vitamin C, (VITAMIN C) 500 mg tablet Take 1,000 mg by mouth daily. Reported on 04/22/2016 pediatric multivitamin (ANGEL CHEW VIT) chewable tablet Take 1 Tab by mouth daily. levonorgestrel-ethinyl estradiol (ORSYTHIA) 0.1-20 mg-mcg per tablet Take 1 Tab by mouth daily. added in this encounter Care Teams Drawing Checker Relationship Specialty Start Date End Date Simona Ambriz NP PCP - General 10/01/15 06/04/18 documented as of this encounter
--- OUTSIDE RECORDS SUMMARY | 2023-11-24 15:18 | XMS_ITS | Encounter Summary ---
Author Organization [facility] Address [address] [place] [address] Care Team Providers Care Technical Account Executive Name Role Phone Simona Ambriz FINANCE OFFICER Primary Care Provider [phone] Encounter Details Date Type Department Care Team ([facility] st Contact Info) Description 05/05/2016 Results Only [facility] [phone] Mervat Weems MD [address] [place] [address] Social History Tobacco Use Types Packs/Day Years [...] Diagnosis Comments CHLAMYDIA/N. GONORRHOEAE AMPLIFIED NUCLEIC ACID Routine 05/05/2016 16:00 EDT ZZVAGINITIS EXAM Routine 05/05/2016 16:0 0 EDT documented in this encounter Results * VAGINITIS EXAM (05/05/2016 16:00 EDT) Gram Smear Result No yeast seen. 05/06/2016 14:38 EDT [facility] Gram Smear Result Smear NOT consistent with bacterial vaginosis. 05/06/2016 14:38 EDT [facility] Result No Trichomonas antigen detected. 05/06/2016 14:24 EDT [facility] VAGINAL STRUCTURE / Unknown 05/05/2016 16:00 EDT 05/05/2016 21:30 EDT Mervat Weems MD MICROBIOLOGY - GENER AL ORDERABLES Performing Organization Address City/[facility] Co de Phone Number [facility] [address] [place] [address] * CHLAMYDIA/GC AMPLIFIED (05/05/2016 16:00 EDT) Chlamydia Result No Chlamydia trachomatis DNA detected by patient admitting clerk mediated amplification. 05/07/2016 13:00 EDT [facility] GC Result No Neisseria gonorrhoeae DNA detected by patient admitting clerk mediated amplification. 05/07/2016 13:00 EDT [facility] VAGINAL STRUCTURE / Unknown 05/05/2016 16:00 EDT 05/05/2016 21:30 EDT Mervat Weems MD MICROBIOLOGY - GENER AL ORDERABLES Performing Organization Address [facility] Co de Phone Number [facility] [address] [place] [address] documented in this encounter Visit Diagnoses Not on filedocumented in this encounter Care Teams Technical Account Executive Relationship Specialty Start Date End Date Simona Ambriz NP PCP - General 10/01/15 06/04/18 documented as of this encounter
--- OUTSIDE RECORDS SUMMARY | 2023-11-24 15:19 | XMS_ITS | Continuity of Care Document ---
Author Organization [facility] Address [address] [place] [address] Phone Care Team Providers Care Recreation Programmer Name Role Phone PCP, of Choice Primary Care Provider JOCELYN Mendez Emergency Provider Allergies, Adverse Reactions, Alerts Allergen Type Severity Reaction Last Updated Verified Status albuterol Allergy headache February 20, 2022 3:18pm Yes Active amoxicillin Allergy vomiting April 23, 2019 2:13pm Yes Active citalopram Allergy gi upset February 20, 2022 3:18pm Ye s Active clavulanic acid Allergy vomiting April 23, 2019 2:13pm Yes Active Social History Smoking Status Status Start Date End Date Date of Observa tion Never smoked tobacco (finding) February 20, 2022 3:46pm Observation Status Observation Response Date of Response Alcohol Use Yes February 20 3:46pm alcohol intake frequency holidays/special occasi ons only February 20, 2022 3:46pm substance use type does not use February 20, 2022 3:46pm Smoking Status Never smoker February 20 3:46pm Additional Data Assigned Sex Female Family History Relationship Condition Age at Onset Recorded Date/T sera Not Specified Family history non-contributory Unknown Problems Active Problems Medical Problem Onset Date Status Spasmodic cough Active Arthralgia May 12, 2016 Active Upper respiratory infection, viral Active Inactive/Resolved Problems Medical Problem Onset Date Status Avulsion of nail Resolved Medications Medication Status Dose Units Route Directions Qty Days St art Date End Date Instructions Venlafaxine Active MG PO April 22, 2019 11:00pm Levonorgestre l-Ethinyl Estrad Active TAB TABLET April 22, 2019 11:00pm Sumatriptan Succinate Active MG PO April 22, 2019 11:00pm Amitriptyline Active TABLET Mar 2019 11:00pm Prednisone Active 40 MG PO DAILY 6 3 2022 12:00am Take in the am only Albuterol Sulfate (Proair Hfa) 90 mcg/actuation HFA aerosol inhaler Active 1 PUFF INH EVERY 6 to 8 HOURS 6.7 February 20, 2022 12:00am The patient is no longer taking amitriptyline Immunizations Immunization Event Date Not Given Reason Dose Number Public Address System Mechanic Lot Number Vaccine Information Statement (VIS) Detail Tdap April 23, 2019 [id number] Vital Signs Vital Reading Result Reference Range Collection Date/Time Height 65 [in_i] February 20, 2 023 3:19pm Weight 79.37 kg February 20, 2 023 3:19pm Body Temperature 98.4 [degF] 97.6-99.6 February 3:19pm Heart Rate 90 /min 60-100 February 20, 2 023 4:10pm Respiratory rate 18 /min 12-24 February 3:19pm Oxygen saturation by Pulse oximetry 97 % 95-100 February 20, 2022 3 :19pm BP Systolic 126 mm[Hg] 100-140 February 20, 2 023 3:19pm BP Diastolic 78 mm[Hg] 50-85 February 20, 2 023 3:19pm Advance Directives Advance Directive Response Recorded Date/ Time Does patient have an Advance Directive? No February 20, 2022 3:07pm Does patient have a COLST form? No February 20, 2022 3:07pm Insurance Providers Guarantor Consuelo Doyle Address [address] [facility] [address] Contact Info. Home Phone: Payer Policy Id Coverage Id Subscriber's Name Subscriber Id Effective Date Expiration Date [facility] [id number] KYLE DOYLE [id number] 000 [facility] [id number] CONSUELO DOYLE [id number] SELF PAY Self N/A [place] MEDICAID (DO NOT USE) [id number] CONSUELO DOYLE [id number] 2015 Encounters Encounter Location(s) Arrival/Admit Date Discharge/Depart Date Provider(s) Departed Emergency [facility] February 20, 2022 3:04pm February 20, 2022 4:42pm null Functional Status Observation Response Date Recorded Living Situation Home February 20, 2 023 3:19pm With Family February 20 3:19pm Plan of Treatment Future Tests Future scheduled test information is unavailable Pending Tests Test Name Ordered Date Scheduled Date Influenza Type A (RT-PCR) February 20, 2022 4:1 2pm Influenza Type B (RT-PCR) February 20, 2022 4:1 2pm Respiratory Syncytial Virus (RT-PCR February 4:12pm SARS-CoV-2 RNA (RT-PCR) February 20, 2022 4:12p m Future Visits Future appointment information is unavailable Referrals to Other Providers Reason for Referral Referral Start Date Provider Bernice real Contact Information Provider Address No Pcp Future Procedures Procedure Name Ordered Date Scheduled Date COVID, [facility] PCR February 20, 2022 3:46pm Januar y 2022 4:12pm Influenza A, B & RSV PCR February 20, 2022 3:46 pm February 20, 2022 4:12pm Future Medications Future medication information is unavailable Patient Instructions Viral Upper Respiratory Infe ction, Adult (DC) Cough, Adult ED Hospital Discharge Instructions Additional Instructions use the inhaler 1 puff every 6-8 hours, Delsym for cough, steroids for 3 days only, if symptoms worsen, follow-up as needed.No antibiotics at this time. The pts drug ist includes Nor B control and Zomig for migraines only. Do not take any other OTC meds except the ones discussed.
--- OUTSIDE RECORDS SUMMARY | 2023-11-24 15:19 | XMS_ITS | Continuity of Care Document ---
Author Organization [facility] Address [address] [place] [address] Phone Care Team Providers Care Counter Tacker Name Role Phone PbSimona duke Kwaku Primary Care Provider [phone] Allergies, Adverse Reactions, Alerts Allergen Type Severity Reaction Last Updated Verified Status amoxicillin Allergy vomiting April 23, 2019 Yes Ac tive clavulanic acid Allergy vomiting April 23, 2019 Yes Active Medications Medication Status Dose Units Route Sig Qty Days Start Date End Date Instructions Venlafaxine Active MG ORAL April 23, 2019 3:13pm Levonorgestrel-Et hinyl Estrad Active TAB TABLET April 23, 2019 3:13pm Sumatriptan Succinate Active MG ORAL April 23, 2019 3:13pm Amitriptyline Active TABLET Mar 2019 3:13pm Problems Active Problems Medical Problem Onset Date Status Arthralgia May 12, 2016 Active Avulsion of nail Active Advance Directives Advance Directive Response Recorded Date/ Time Does patient have an Advanced Directive? No August 30, 2015 12:41pm Do we have a copy on file here at [facility] No April 23, 2019 2:33pm Pt has a Living Will? No August 30, 2015 12:41pm Do we have a copy on file here at [facility]? No April 23, 2019 2:33pm Pt has a Power of Owner Manager? No August 30, 2015 12:41pm Do we have a copy on file here at [facility]? No April 23, 2019 2:33pm Encounters Encounter Location(s) Arrival/Admit Date Discharge/Depart Date Provider(s) Departed Emergency [facility] Jaz April 23, 2019 2:27pm April 23, 2019 4:09pm null Assessments No Assessments Information Available Family History Relationship Condition Age at Onset Recorded Date/T sera Not Specified Family history non-contributory Unknown Functional Status No Functional Status information available Goals Goals may be documented in an alternate section. Immunizations Immunization Event Date Not Given Reason Dose Number Public Policy Coordinator Lot Number Vaccine Information Statement (VIS) Detail Tdap April 23, 2019 [id number] Mental Status No Mental Status Information Available Medical Equipment No Medical Equipment Information available Insurance Providers Guarantor Consuelo Doyle Address [address] [facility] [address] Contact Info. Home Phone: Payer Policy Id Coverage Id Subscriber's Name Subscriber Id Effective Date Expiration Date [facility] [id number] KYLE Danish BLAIR [id number] 000 MEDICAID [facility] [id number] CONSUELO DOYLE [id number] SELF PAY Self N/A [place] MEDICAID (DO NOT USE) [id number] CONSUELO DOYLE [id number] 2015 Plan of Treatment Future Tests Future scheduled test information is unavailable Pending Tests Pending diagnostic test information is unavailable Future Visits Future appointment information is unavailable Referrals to Other Providers Reason for Referral Referral Start Date Provider Provider Contact Information Provider Address Simona Ambriz NP Work Phone: [employer] [address] [phone] Future Procedures Future procedure information is unavailable Future Medications Future medication information is unavailable Patient Instructions Patient instructions are unavailable Social History Smoking Status Status Date of Observation Never smoked tobacco (finding) April 3:24pm Observation Status Observation Response Date of Response Alcohol Use No April 23, 2019 3:24pm substance use type does not use April 22 020 3:24pm Smoking Status Never smoker April 23, 2019 3:24pm Assigned Sex Female Vital Signs Vital Reading Result Reference Range Collection Date/Time Height 65 [in_i] April 22 0 3:14pm Weight 69.85 kg April 22 0 3:14pm Body Temperature 98.3 [degF] 97.6-99.6 April 23, 2019 3:14pm Heart Rate 82 /min 60-100 April 22 0 3:14pm Respiratory rate 12 /min 12-24 April 23, 2019 3:14pm Oxygen saturation by Pulse oximetry 99 % 95-100 April 23, 2019 3:1 4pm BP Systolic 110 mm[Hg] 100-140 April 22 0 3:14pm BP Diastolic 74 mm[Hg] 50-85 April 22 0 3:14pm BMI (Body Mass Index) 25.6 kg/m2 April 23, 2019 3:14pm Hospital Discharge Instructions Additional Instructions Ibuprofen or tylenol as needed for pain. Warm soaks with epsom salts or soapy water 2-3 times a day to keep clean and promote healing. Elevate foot as needed. Keep covered with a bandage for 3-5 days. As nail is no longer in place to protect nail bed, wear closed toed shoes. Monitor for any infection including redness, swelling, increased pain, drainage of pus and followup here or with PCP if needed.
--- OUTSIDE RECORDS SUMMARY | 2023-11-24 15:19 | XMS_ITS | Encounter Summary ---
Author Organization [facility] Address [facility] [place] [address] Care Team Providers Care Clinical Reimbursement Specialist Name Role Phone Renetta Velásquez APRN Primary Care Provider [phone] Encounter Details Date Type Department Care Team (Latest Contact Info) Description 01/07/2021 10:30 AM EST TH Visit (TeleHealth) Neurology at [address] [id number] Bernabe Fallon MD [facility] [place] [address] Chronic migraine without aura, with intractable migraine, so stated, with status migrainosus Social History Tobacco Use Types Packs/Day Years Used Date Smoking Tobacco: Former Smokeless Tobacco: Never Alcohol Use Standard Drinks/Week Comments Not Currently 0 (1 standard drink = 0.6 oz pur e alcohol) Sex and Gender Information Value Date Recorded Sex Assigned at Not on file Gender Identity Not on file Sexual Orientation Not on file documented as of this encounter Progress Notes * Bernabe Fallon MD - 01/07/2021 10:30 AM EST Neurology [facility] TeleHealth Visit 01-07-21 Last appointment: 09-17-20 Pain today: 0 Interval Headache Hx: Pt with chronic migraine for whom I prescribed erenumab first dose 09-17-20 and prn zolmitriptan. She has had 4 doses of erenumab, and absolutely no benefit. Patient Reported: MIDAS Responses 01/06/2021 Days missed school/work 1 Days productivity at work/school reduced 30 Days did not do household work 75 Days productivity related to housework reduced 85 Days missed family, social or leisure activities 18 Days had headache 84 Pain scale 4 MIDAS Score 209 (MIDAS grade IV, severe disability) MIDAS Adjusted Score 209 MONOCLONAL ANTIBODY Note [facility] ? Patient name: Linwood Doyle Date of : 2000 ? Patient Dx: [x]? G43.7 chronic migraine without aura []? G43.9 episodic migraine without aura []? G43.0 migraine with aura ?? Medication being requested: []? Aimovig [x]? AJOVY []? Emgality ?? Preferred Pharmacy: [facility], [facility] ?? Linwood Doyle has had a lack of success with each of the three most effective anti-migraine prevention categories: antidepressants, anti-epilepsy drugs, and antihypertensives. ?? The FDA has approved the use of Aimovig, Ajovy, & Emgality for the prevention of Chronic and Episodic Migraine. ?? Does the patient have a latex allergy? No ?? Does the patient have severe constipation? No Allergies Allergen Reactions ??? Amoxicillin-Pot Clavulanate ? vomiting ??? Citalopram Analogues ? Nausea,vomiting,dizziness ? Patient has tried and failed: Medications Tried ([x]? checked have been tried in the past) ? Anti-Depressants: SSRI: [x]? Citalopram (Celexa) []? Escitalopram (Lexapro) []? Fluvoxamine (Luvox) []? Fluoxetine (Prozac) []? Paroxetine (Paxil) []? Sertraline (Zoloft) SNRI: []? Desvenlafaxine (Pristiq/Khedezla) []? Duloxetine (Cymbalta) []? Levomilnacipran (Fetzima) []? Milnacipran (Savella) [x]? Venlafaxine (Effexor) TCA: [x]? Amitriptyline (Elavil) []? Amoxapine []? Clomipramine (Anafranil) []? Desipramine (Norpramin) []? Doxepin (Sinequan) []? Imipramine (Tofranil) []? Maprotiline (Ludiomil) []? Nortriptiline (Pamelor) []? Protriptyline (Vivactil) []? Trimipramine (Surmontil) ?? Anti-Hypertensives: Calcium Channel Blockers: [x]? Amlodipine (Norvasc) []? Bepridil (Vascor) []? Diltiazem (Cardiazem) []? Felodipine (Plendil) []? Nicardipine (Cardene) []? Nifedipine (Procardia) []? Nisoldipine (Sular) []? Verapamil Supplements: []? Butterbur [x]? Coenzyme Q10 []? Feverfew [x]? Magnesium []? Melatonin []? Migrelief (riboflavin, magnesium, feverfew) [x]? Vitamin B2 (riboflavin) ? Triptans oral: []? Almotriptan (Axert) []? Eletriptan (Relpax) []? Frovatriptan (Frova) []? Naratriptan (Amerge) [x]? Rizatriptan (Maxalt) [x]? Sumatriptan (Imitrex) []? Sumatriptan/Naproxen (Treximet) []? Zolmitriptan (Zomig) ?? Triptans injectable: [x]? Sumatriptan (Imitrex) solution 3 mg, 4 mg, 6 mg MABs [x]? Erenumab ?? NSAIDS: [x]? Aspirin []? Celecoxib (Celebrex) []? Diclofenac potassium []? Flurbiprofen [x]? Ibuprofen (Advil) []? Indomethacin []? Ketoprofen []? Ketorolac (Toradol) []? Meloxicam (Mobic) []? Nabumetone [x]? Naproxen sodium (Aleve) ? Combination/Other Analgesics: []? Acetaminophen (tylenol) [x]? Acetaminophen/aspirin/caffeine (Excedrin/Pamprin) []? Acetaminophen/caffeine/pyrilamine maleate (Midol) []? Acetaminophen/dichloralphenazone/isometheptene (Midrin) []? Butalbital/aspirin/caffeine/codeine (Fiorinal with codeine) []? Butalbital/Aspirin/Caffeine (Fiorinal) []? Butalbital/acetaminophen/caffeine (Fioricet) ?? For CHRONIC Migraine Patients: ?? Does the patient have medication overuse headache? []? YES [x]? NO *If YES, the treatment plan will include tapering off the offending medications ?? Does the patient have >= 15 MOY days per month, of which at least 8 must be migraine days??? [x]? YES []? NO ?? How many migraine days per month is patient experiencing? 29 ? How long do the migraines last? 4-5 days ? How long has the patient had this diagnosis? 6 years ? Has patient tried and failed Botox? []? YES [x]? NO ?? Will patient be receiving both Botox and Aimovig simultaneously? []? YES [x]? NO ?? Will patient be receiving both Aimovig, AJOVY, & Emgality and another monoclonal antibody? []? YES [x]? NO Prior Treatments: TCAs 1. Amitriptyline SNRIs 2. Venlafaxine CCBs 3. Amlodipine Triptans 4. Lucia 100, 6 5. Riza 10 6. Zolmi 2.5 mg PO NSAIDs 7. ASA Excedrin 8. Ibuprofen 9. Naproxen Supplements 10. Mag 500 mg 11. B2 12. CoQ10 200 mg Antihistamines 13. Diphenhydramine CCBs 14. Amlodipine Misc 15. CBD SSRIs 16. Citalopram MABs 17. Erenumab New Health Issues: See HPI New Family History: no Past Medical History: Diagnosis Date ??? Back pain ??? Chronic migraine without aura, with intractable migraine, so stated, with status migrainosus ??? CRP elevated 07/2020 4.79 ??? JONATHAN (generalized anxiety disorder) ??? Goiter ??? IBS (irritable bowel syndrome) ??? Low vitamin D level ??? MDD (major depressive disorder) with SI ??? Neck pain ??? Pineal gland cyst ??? Suicidal ideation Past Surgical History: Procedure Laterality Date ??? WISDOM TOOTH EXTRACTION Studies to Review: no Current Outpatient Medications on File Prior to Visit Medication Sig Dispense Refill ??? Vienva 0.1-20 mg-mcg Tablet TAKE ONE TABLET BY MOUTH EVERY DAY DIRECTED ??? cholecalciferol, Vitamin D3, (Vitamin D3) 1,000 unit Tablet Take 2,000 Units by mouth Daily. ??? rizatriptan (MAXALT) 10 mg Tablet Take 10 mg by mouth. ??? MAGNESIUM ORAL Take by mouth. ??? Coenzyme Q10 (Co Q-10) 200 mg Capsule Take by mouth. ??? ferrous fumarate/vit Bcomp,C (SUPER B COMPLEX ORAL) Take by mouth. ??? naproxen sodium (ALEVE ORAL) Take by mouth. ??? diphenhydrAMINE (Benadryl) 25 mg Capsule Take 25 mg by mouth every 6 hours as needed for Itching. ??? UNABLE TO FIND CBD ??? erenumab-aooe (Aimovig Autoinjector) 140 mg/mL Auto-Injector Inject 140 mg subcutaneously every28 days. 1 mL 11 ??? ZOLMitriptan (ZOMIG) 2.5 mg Tablet One PO for migraine, max 10 mg per day 9 tablet 11 No current facility-administered medications on file prior to visit. Allergies Allergen Reactions ??? Amoxicillin-Pot Clavulanate vomiting ??? Citalopram Analogues Nausea,vomiting,dizziness REVIEW OF SYSTEMS: See HPI Impression & plan: 1. Chronic migraine without aura, with intractable migraine, so stated, with status migrainosus This patient meets the FDA criteria for Chronic Migraine, with headache at least 15 days per month,at least 4 hours per day (hers are 29 days per month). She has unsuccessfully tried at least 17 medications, and has had lack of success with each of the big three anti-migraine prevention categories, antidepressants, anti-epilepsy drugs, and antihypertensives, as well as erenumab. She did not respond to an anti-CGRP receptor MAB erenumab after 4 mos, so I will switch her to fremanezumab, an anti-CGRP ligand MAB. If this fails, we have the option of BTX. If there is a partial response, we can either add BTX or go to eptinezumab. AIMOVIG Follow Up [facility] Patient name: Linwood Doyle Date of : 2000 Patient Reported: MIDAS Responses 01/06/2021 Days missed school/work 1 Days productivity at work/school reduced 30 Days did not do household work 75 Days productivity related to housework reduced 85 Days missed family, social or leisure activities 18 Days had headache 84 Pain scale 4 MIDAS Score 209 (MIDAS grade IV, severe disability) MIDAS Adjusted Score 209 Date you began using Aimovi09-17-20 How many months have you administered Aimovig 140 m How many migraine/headache days per month did you have BEFORE starting Aimovi How many migraine/headache days per month have you had SINCE starting Aimovi Have you noticed that your headaches/migraines are not as severe since starting Aimovig: no Have you used less of your abortive medications (triptans, NSAIDs, etc) since starting Aimovig: no Are your abortive medications working better to abort migraines since starting Aimovig: no Do you think the Aimovig is helping: no Side effects: no Is the medication wearing off ? N/A Follow-up: April 2021 I spent 40 minutes in this visit directly and with prep time today 01-07-21. Linwood Doyle gave verbal consent over the phone for this TeleHealth visit. The patient understands that this visit will be billed to their insurance, similar to a clinic visit. Bernabe Fallon MD documented in this encounter Plan of Treatment Not on file documented as of this encounter Visit Diagnoses Diagnosis Chronic migraine without aura, with intractable migraine, so stated, with status migrainosus documented in this encounter Care Teams Clinical Reimbursement Specialist Relationship Specialty Start Date End Date Renetta Velásquez, ELECTRIC MOTOR TESTER [address] [place] [address] PCP - General Family Medicine 07/25/20 documented as of this encounter
--- OUTSIDE RECORDS SUMMARY | 2023-11-24 15:19 | XMS_ITS | Continuity of Care Document ---
Author Name [facility] Address [address] [place] [id number] Organization [facility] Address [address] [place] [address] Care Team Providers Care Unified Communications Engineer Name Role Phone Simona Ambriz Primary Care Physician UnavailDulce Butcher Attending Physician Unavailable Allergies, Adverse Reactions, Alerts No allergy information available. Medications No medication information available. Problem List No problem information available. Procedures Procedure Date Status US Thyroid Soft Tissue Neck August 30, 2015 comp leted US EXAM OF HEAD AND NECK August 30, 2015 active Relevant Diagnostic Tests and/or Laboratory Data Laboratory Results Test Date/Time Result Interp. Ref. Range Result Co mment White Blood Count May 12, 2016 6:03pm 7.81 1000/mm3 4.8-10.8 Red Blood Count May 12, 2016 6:03pm 4.53 M/mm3 4.20-5.40 Hemoglobin May 12, 2016 6:03pm 14.0 g/dL 12.0-16.0 Hematocrit May 12, 2016 6:03pm 42.4 % 37-47 Mean Corpuscular Volume May 12, 2016 6:03pm 93.6 fL 81.0-99.0 Mean Corpuscular Hemoglobin May 12, 2016 6:03pm 30.9 pg 27-31 Mean Corpuscular Hemoglobin Concent May 12, 2016 6:03pm 33.0 g/dL 33-37 Red Cell Distribution Width May 12, 2016 6:03pm 12.4 % 11.5-14.5 Platelet Count May 12, 2016 6:03pm 234 1000/mm3 140-440 Mean Platelet Volume May 12, 2016 6:03pm 12.7 fL High 7.4-10.4 Neutrophils (%) (Auto) May 12, 2016 6:03pm 52.6 % 40.0-72.0 Lymphocytes (%) (Auto) May 12, 2016 6:03pm 32.9 % 17-45 Monocytes (%) (Auto) May 12, 2016 6:03pm 9.7 % 3-11 Eosinophils (%) (Auto) May 12, 2016 6:03pm 4.2 % High 0-3 Basophils (%) (Auto) May 12, 2016 6:03pm 0.6 % 0-1 Neutrophils # (Auto) May 12, 2016 6:03pm 4.10 1000/mm3 1.4-6.5 Lymphocytes # (Auto) May 12, 2016 6:03pm 2.57 1000/mm3 1.2-3.4 Monocytes # (Auto) May 12, 2016 6:03pm 0.76 1000/mm3 0.0-0.8 Eosinophils # (Auto) May 12, 2016 6:03pm 0.33 1000/mm3 0.0-0.7 Basophils # (Auto) May 12, 2016 6:03pm 0.05 1000/mm3 0.0-0.1 Differential Method May 12, 2016 6:03pm Automated Erythrocyte Sedimentation Rate May 12, 2016 6:03pm 18 mm/hr High 0-15 Sodium Level May 12, 2016 6:03pm 144 mmol/L 137-145 Potassium Level May 12, 2016 6:03pm 4.6 mmol/L 3.6-5.0 Chloride Level May 12, 2016 6:03pm 102 mmol/L 98-107 Carbon Dioxide Level May 12, 2016 6:03pm 25 mmol/L 22-30 Anion Gap May 12, 2016 6:03pm 17 High 7-16 Blood Urea Nitrogen May 12, 2016 6:03pm 8 mg/dL 7-17 Creatinine May 12, 2016 6:03pm 0.7 mg/dL 0.52-1.04 Glomerular Filtration Rate Calc May 12, 2016 6:03pm TNP Test not performed GFR cannot be calculated due to patient age. GFRs are only calculated on patients >18 years of age. Glucose Level May 12, 2016 6:03pm 93 mg/dL 70-100 Calcium Level May 12, 2016 6:03pm 10.0 mg/dL 8.4-10.2 Calcium Adjusted for Albumin May 12, 2016 6:03pm 9.6 mg/dL 8.4-10.2 Total Bilirubin May 12, 2016 6:03pm 0.6 mg/dL 0.2-1.3 Aspartate Amino Transf (AST/SGOT) May 12, 2016 6:03pm 30 U/L 14-36 Alanine Aminotransferase (ALT/SGPT) May 12, 2016 6:03pm 37 U/L 9-52 Total Protein May 12, 2016 6:03pm 8.4 g/dL High 6.3-8.2 Albumin May 12, 2016 6:03pm 4.8 g/dL 3.5-5.0 Alkaline Phosphatase May 12, 2016 6:03pm 78 U/L 38-126 Rheumatoid Factor May 12, 2016 6:03pm Negative Advance Directives Advance Directive Response Recorded Date/ Time Does patient have an Advanced Directive? No August 30, 2015 12:41pm Pt has a Living Will? No August 29 016 12:41pm Pt has a Power of Windows Systems Architect? No August 30, 2015 12:41pm Hospital Discharge Instructions No known hospital discharge instructions. Encounters Encounter Facility Location Admit/Visit Date Discharge/Departure Date Attending Provider Departed Referred [facility] May 12, 2016 8:37pm May 12, 2016 8:38pm Dulce Luna Registered Clinical [facility] DI [facility] August 30, 2015 12:41pm Simona Ambriz Functional Status No known functional status. Immunizations No known immunizations. Payers Payer Name Policy Type Covered Republican Covered Republican Id Relationship Subscriber Subscriber Id [place]ICAID [place] Medicaid CONSUELO PINTO Self/Same as Patient CONSUELO PINTO SELF PAY Personal [place] MEDICAID (DO NOT USE) Medicaid CONSUELO AIRASCARTER [id number] Self/Same as Patient CONSUELO [id number] Plan of Care No Known Plan of Care Information Social History No known social history. Vital Signs No known vital signs results.
--- OUTSIDE RECORDS SUMMARY | 2023-11-24 15:19 | XMS_ITS | Encounter Summary ---
Author Organization [facility] Address [facility] [place] [address] Care Team Providers Care Machine Setter Sheet Metal Name Role Phone Renetta Velásquez APRN Primary Care Provider [phone] Reason for Visit * Consultation (Routine) - Closed Specialty Diagnoses / Procedures Referred By Contac t Referred To Contact Neurology Diagnoses Migraine HEADACHES/MIGRAINES Procedures HEADACHE CLINIC Renetta Velásquez APRN [address] [place] [address] [facility] Neurology [address] [place] [phone] Referral ID Status Reason Start Date Expiration Date V isits Requested Visits Authorized [id number] Closed Consult, Test & [facility] Connection [facility] PCP Updated and/or Approved 07/17/2020 07/17/2021 6 6 Encounter Details Date Type Department Care Team (Late st Contact Info) Description 09/17/2020 4:00 PM EDT Office Visit Neurology at [address] [phone] Bernabe Fallon MD [facility] [id number] Chronic migraine without aura, with intractable migraine, [...] Mass Index 26.13 09/17/2020 3:43 PM EDT documented in this encounter Progress Notes * Bernabe Fallon MD - 09/17/2020 4:00 PM EDT Neurology Headache New Patient Consultation 09-17-20 [facility] Referring Provider: Renetta Velásquez APRN This is a 20 year old R-handed woman referred by Renetta Velásquez APRN, to whom I will send the consult upon completion. Accompanied by: mom CC: headache HPI: Pt with JONATHAN, MDD and SI, chronic back and neck pain, IBS, and goiter. She continues to have daily suicidal thoughts. No hx of motion sickness, +FHx of migraine Onset of HAs age 15, severe, R sided predominant or bilateral and in the neck, throbbing, with N and photophobia. . Every MOY day is severe. Onset is in the afternoon. Time to peak 2h. No aura. She vomits <1/month. She takes naproxen sodium + CBD at onset of HAs. She had medication overuse from riza in Mar 2020. Rizatriptan gives her relief, but not pain freedom, with recurrence. It makes her tired. She has 4-5 MOY free days per month. Triggers: stress, dehydration, fatigue, muscle pain, exercise She has [employer] insurance. Migraine Disability Assessment 09-18-20 # of days in the past 3 months 1. Missed work / school because of MOY 3 2. Productivity at work / school reduced by > half because of MOY (do not count days from Q.1) 36 3. Did not do housework because of MOY 87 4. Productivity in household work reduced by > half because of MOY (do not count days from Q.3) 0 5. Missed family / social / leisure activities because of MOY 24 Total 150 MIDAS grade (use total of Q1 to 5) I: 0-5, little to no disability II: 6-10, mild disability III: 11-20, moderate disability IV: 21+, severe disability A. # of days in the last 3 months with a MOY (count each day if MOY lasted > 1 day) 77 B. Average MOY intensity (0-10) 7 MONOCLONAL ANTIBODY [place] [facility] [place] [facility] Patient name: Linwood Doyle Date of : 2000 Patient Dx: [x] G43.7 chronic migraine without aura [] G43.9 episodic migraine without aura [] G43.0 migraine with aura Medication being requested: [x] Aimovig [] AJOVY [] Emgality Preferred Pharmacy: [facility], [facility] Linwood Doyle has had a lack of success with each of the three most effective anti-migraine prevention categories: antidepressants, anti-epilepsy drugs, and antihypertensives. The FDA has approved the use of Aimovig, Ajovy, & Emgality for the prevention of Chronic and Episodic Migraine. Does the patient have a latex allergy? No Does the patient have severe constipation? No Allergies Allergen Reactions ??? Amoxicillin-Pot Clavulanate vomiting ??? Citalopram Analogues Nausea,vomiting,dizziness Patient has tried and failed: Medications Tried ([x] checked have been tried in the past) Anti-Depressants: SSRI: [x] Citalopram (Celexa) [] Escitalopram (Lexapro) [] Fluvoxamine (Luvox) [] Fluoxetine (Prozac) [] Paroxetine (Paxil) [] Sertraline (Zoloft) SNRI: [] Desvenlafaxine (Pristiq/Khedezla) [] Duloxetine (Cymbalta) [] Levomilnacipran (Fetzima) [] Milnacipran (Savella) [x] Venlafaxine (Effexor) TCA: [x] Amitriptyline (Elavil) [] Amoxapine [] Clomipramine (Anafranil) [] Desipramine (Norpramin) [] Doxepin (Sinequan) [] Imipramine (Tofranil) [] Maprotiline (Ludiomil) [] Nortriptiline (Pamelor) [] Protriptyline (Vivactil) [] Trimipramine (Surmontil) Anti-Hypertensives: Calcium Channel Blockers: [x] Amlodipine (Norvasc) [] Bepridil (Vascor) [] Diltiazem (Cardiazem) [] Felodipine (Plendil) [] Nicardipine (Cardene) [] Nifedipine (Procardia) [] Nisoldipine (Sular) [] Verapamil Supplements: [] Butterbur [x] Coenzyme Q10 [] Feverfew [x] Magnesium [] Melatonin [] Migrelief (riboflavin, magnesium, feverfew) [x] Vitamin B2 (riboflavin) Triptans oral: [] Almotriptan (Axert) [] Eletriptan (Relpax) [] Frovatriptan (Frova) [] Naratriptan (Amerge) [x] Rizatriptan (Maxalt) [x] Sumatriptan (Imitrex) [] Sumatriptan/Naproxen (Treximet) [] Zolmitriptan (Zomig) Triptans injectable: [x] Sumatriptan (Imitrex) solution 3 mg, 4 mg, 6 mg NSAIDS: [x] Aspirin [] Celecoxib (Celebrex) [] Diclofenac potassium [] Flurbiprofen [x] Ibuprofen (Advil) [] Indomethacin [] Ketoprofen [] Ketorolac (Toradol) [] Meloxicam (Mobic) [] Nabumetone [x] Naproxen sodium (Aleve) Combination/Other Analgesics: [] Acetaminophen (tylenol) [x] Acetaminophen/aspirin/caffeine (Excedrin/Pamprin) [] Acetaminophen/caffeine/pyrilamine maleate (Midol) [] Acetaminophen/dichloralphenazone/isometheptene (Midrin) [] Butalbital/aspirin/caffeine/codeine (Fiorinal with codeine) [] Butalbital/Aspirin/Caffeine (Fiorinal) [] Butalbital/acetaminophen/caffeine (Fioricet) For CHRONIC Migraine Patients: Does the patient have medication overuse headache? [] YES [x] NO *If YES, the treatment plan will include tapering off the offending medications Does the patient have >= 15 MOY days per month, of which at least 8 must be migraine days? [x] YES [] NO How many migraine days per month is patient experiencing? 29 How long do the migraines last? 4-5 days How long has the patient had this diagnosis?6 years Has patient tried and failed Botox? [] YES [x] NO Will patient be receiving both Botox and Aimovig simultaneously? [] YES [x] NO Will patient be receiving both Aimovig, AJOVY, & Emgality and another monoclonal antibody? [] YES [x] NO Prior Treatments: TCAs 1. Amitriptyline SNRIs 2. Venlafaxine CCBs 3. Amlodipine Triptans 4. Lucia 100, 6 5. Riza 10 NSAIDs 6. ASA Excedrin 7. Ibuprofen 8. Naproxen Supplements 9. Mag 500 mg 10. B2 11. CoQ10 200 mg SSRIs 12. Citalopram Antihistamines 13. Diphenhydramine CCBs 14. Amlodipine Misc 15. CBD Outpatient Medications Marked as Taking for the 09/17/20 encounter (Office Visit) with Bernabe Fallon MD Medication Sig Dispense Refill ??? Vienva 0.1-20 [...] for Itching. ??? UNABLE TO FIND CBD Allergies Allergen Reactions ??? Amoxicillin-Pot Clavulanate vomiting ??? Citalopram Analogues Nausea,vomiting,dizziness Previous testing: CT wo 09/10/20: 15 mm X 10 mm X 15 mm unilocular pineal cyst with calcifications CRP 07-11-20: 4.79 Nl or negative : Hb A1C, PAN, celiac panel, ferritin, TFTs, anti-thyroid ABs, CBC, CMP Family History: Migraine or other headaches in the family: Father and MGM Past Medical History: Diagnosis Date ??? Back pain ??? CRP elevated 07/2020 4.79 ??? JONATHAN (generalized anxiety disorder) ??? Goiter ??? IBS (irritable bowel syndrome) ??? Low vitamin D level ??? MDD (major depressive disorder) with SI ??? Neck pain ??? Pineal gland cyst Past Surgical History: Procedure Laterality Date ??? WISDOM TOOTH EXTRACTION Social History Socioeconomic History ??? Marital status: Single Spouse name: Not on file ??? Number of children: Not on file ??? Years of education: Not on file ??? Highest education level: Not on file Occupational History ??? Not on file Tobacco Use ??? Smoking status: Former Smoker ??? Smokeless tobacco: Never Used Substance and Sexual Activity ??? Alcohol use: Not Currently ??? Drug use: Yes Comment: CBD ??? Sexual activity: Not on file Other Topics Concern ??? Not on file Social History Narrative ??? Not on file Social Determinants of Health Financial Resource Strain: ??? Difficulty of Paying Living Expenses: Not on file Food Insecurity: ??? Worried About Running Out of Food in the Last Year: Not on file ??? Ran Out of Food in the Last Year: Not on file Transportation Needs: ??? Lack of Transportation (Medical): Not on file ??? Lack of Transportation (Non-Medical): Not on file Physical Activity: ??? Days of Exercise per Week: Not on file ??? Minutes of Exercise per Session: Not on file \ ROS: HEENT: headache CV: negative GI: negative : negative Endocrine: negative Musculoskeletal: negative Physical Exam VS BP 128/71 Pulse 88 Ht 165.1 cm (5' 5) Comment: reported Wt 71.2 kg (157 lb) SpO2 99% BMI26.13 kg/m?? General: nl Pain Behaviors: none Skin: nl HEENT: Nl, no spasm, full ROM, NC/AT Abdomen/genitalia: ND Pulm: Normal WOB Musculoskeletal: Nl Neurological: Mental Status: nl, Affect is appropriate. Speech is clear, not dyarthric. Attention span and concentration are nl. Cranial Nerves: Funduscopic: nl discs & venous pulsations Visual conley: full to confrontation 3,4,6: Pupils: 3 mm = round reactive to light and near reflex. EOMI. V: nl primary sensory modalities V1-3, corneals intact bilaterally VII:symmetric VIII: nl XI: SCMs 5/5; Shoulder Shru/5 XIII:Tongue protrusion: midline Motor: nl bulk, tone, strength 5/5 on upper and lower extremities bilaterally. Reflexes 2+ on patellar, biceps, brachioradialis, achilles bilaterally Pathologic reflexes: absent Drift absent Tremor: absent Sensation: Primary sensory modalities nl in the upper extremities. Cerebellar exam: No ataxia, Heel to ross intact bilaterally. Finger to nose smooth and symmetric bilaterally. No dysmetria. Can perform rapid alternating movements in the hands equally bilaterally. FTN nl CHANNING nl . Gait examination: nl Tanderm nl Romberg negative Impression & plan: 1. Chronic migraine without aura, with intractable migraine, so stated, with status migrainosus This patient meets the FDA criteria for Chronic Migraine, with headache at least 15 days per month,at least 4 hours per day (hers are 29/31 days per month). She has unsuccessfully tried at least 15 medications, and has had lack of success with each of the big three anti-migraine prevention categories, antidepressants, anti-epilepsy drugs, and antihypertensives. I will prescribe erenumab for her migraine prevention. I will switch her from rizatriptan to zolmitriptan because of the riza fatigue. Follow up 4 mos Total time spent today 09-17-20 on this patient's care: 80 minutes Thank you, Ms Christen, for this consult. Bernabe Fallon MD documented in this encounter Plan of Treatment Not on file documented as of this encounter Visit Diagnoses Diagnosis Chronic migraine without aura, with intractable migraine, so stated, with status migrainosus documented in this encounter Care Teams Machine Setter Sheet Metal Relationship Specialty Start Date End Date Renetta Velásquez, GLASS WORKER [address] [place] [address] PCP - General Family Medicine 07/25/20 documented as of this encounter
--- OUTSIDE RECORDS SUMMARY | 2023-11-24 15:19 | XMS_ITS | Encounter Summary ---
[place] [address] Care Team Providers Care Inventory Specialist Name Role Phone Renetta Velásquez APRN Primary Care Provider Reason for Visit * Reason Comments Prior Authorization Aimovig 140mg/mL aut o-injector Encounter Details Date Type Department Care Team (Late st Contact Info) Description 09/18/2020 Specialty [place] [address] Jun Sparrow, LEA Social History Tobacco Use Types Packs/Day Years Used Date Smoking Tobacco: Former Smokeless Tobacco: Never Alcohol Use Standard Drinks/Week Comments Not Currently 0 (1 standard drink = 0.6 oz pur e alcohol) Sex and Gender Information Value Date Recorded Sex Assigned at Not on file Gender Identity Not on file Sexual Orientation Not on file documented as of this encounter Progress Notes * Jun Sparrow CPHT - 09/18/2020 2:23 PM EDT [facility], Medication Prior Authorization Patient: Linwood Doyle Patient : 2000 Patient Address: [facility] [address] (home) Medication Name: AIMOVIG AUTOINJECTOR 140 MG/ML SUBCUTANEOUS AUTO-INJECTOR Medication ID: [id number] Patient Location: [facility] Patient Location Comment: Subscriber Insurance: [employer] (ADV) Subscriber Insurance Comment: Fax: Physician: WOLFGANG PALOMARES Physician Comment: Sent Via: Fax Fu: N/A Ref/Case/PA#: Unavailable Medication Strength Frequency Requested: Aimovig 140mg/mL auto-injector / 140mg every 28 days Qty/Day Supply: 03/06 New Start: New to Therapy Diagnosis & ICD-10 Code: Chronic migraine, G43.711 Patient Notified: Yes Submission Notes: Sent Claudy BANKS via fax, await response. Jun Sparrow 09/18/20 2:27 PM * Jun Sparrow CPHT - 09/18/2020 2:23 PM EDT [facility], Copay Assistance Medication Name: AIMOVIG AUTOINJECTOR 140 MG/ML SUBCUTANEOUS AUTO-INJECTOR Medication ID: Copay Assistance/Copay Card: Copay Card Name of Assistance Program: [employer] - Aimovig Copay Card Amount Provided by Program: $2700 New Copayment: $5 Additional Information regarding this Assistance: The Aimovig copay card reduces what would be a $247.76 copay, down to $5. Jun Sparrow 09/19/20 11:11 AM [facility], Prior Authorization Approval Medication Name: AIMOVIG AUTOINJECTOR 140 MG/ML SUBCUTANEOUS AUTO-INJECTOR Medication ID: [id number] Approval Dates: 09/18/2020 to 12/19/2020 Insurance requirements/notes: None Other Notes: None Case/Reference #: [id number] Approval notification Received via: Telephone Copay: $247.76 Copay assistance: Copay Card Copay Notes: Insurance mandated Pharmacy: D- Pharmacy Fillable at [facility]: Yes Pharmacy staff will be reaching out to the patient to inform them of their medication's [facility]. If applicable, a pharmacist will speak with the patient to offer our specialty pharmacy services and to arrange delivery of their medication. Jun Sparrow 09/19/20 11:11 AM documented in this encounter Plan of Treatment Not on file documented as of this encounter Visit Diagnoses Not on filedocumented in this encounter Care Teams Inventory Specialist Relationship Specialty Start Date End Date Renetta Velásquez, EXPERIMENTAL PHYSICIST [address] [place] [address] PCP - General Family Medicine 07/25/20 documented as of this encounter
--- OUTSIDE RECORDS SUMMARY | 2023-11-24 15:19 | XMS_ITS | Continuity of Care Document ---
Author Name [facility] Address [address] [place] [address] [address] [address] [facility] Address [address] [place] [address] Care Team Providers Care Tower Hoist Operator Name Role Phone Simona Ambriz Primary Care [...] 016 12:41pm Pt has a Power of Research Associate Quality Control Qc? No August 30, 2015 12:41pm Hospital Discharge Instructions No known hospital discharge instructions. Encounters Encounter Facility Location Admit/Visit Date Discharge/Departure Date Attending Provider Departed Referred [facility] May 12, 2016 8:37pm May 12, 2016 8:38pm Dulce Luna Registered Clinical [facility] August 30, 2015 12:41pm Simona Ambriz Functional Status No known functional status. Immunizations No known immunizations. Payers Payer Name Policy Type Covered Republican Covered Republican Id Relationship Subscriber Subscriber Id [place] Medicaid CONSUELO WRIGHTNiranjan [id number] Self/Same as Patient CONSUELO PINTO [id number] SELF PAY Personal [place] MEDICAID (DO NOT USE) Medicaid CONSUELO WRIGHTNiranjan [id number] Self/Same as Patient CONSUELO WRIGHTNiranjan [id number] Plan of Care No Known Plan of Care Information Social History No known social history. Vital Signs No known vital signs results.
--- OUTSIDE RECORDS SUMMARY | 2023-11-24 15:19 | XMS_ITS | Encounter Summary ---
[place] [address] Care Team Providers Care Watcher Automat Long Goods Name Role Phone Renetta Velásquez APRN Primary Care Provider Reason for Visit * Reason Comments Medication Management Patient Education Encounter Details Date Type Department Care Team (Late st Contact Info) Description 09/18/2020 Specialty [place] [phone] Alvino Sandoval [facility] Social History Tobacco Use Types Packs/Day Years Used Date Smoking Tobacco: Former Smokeless Tobacco: Never Alcohol Use Standard Drinks/Week Comments Not Currently 0 (1 standard drink = 0.6 oz pur e alcohol) Sex and Gender Information Value Date Recorded Sex Assigned at Not on file Gender Identity Not on file Sexual Orientation Not on file documented as of this encounter Progress Notes * Alvino Sandoval [facility] - 09/18/2020 1:31 PM EDT Specialty Pharmacy Consultation; Alvino Sandoval RPH Comprehensive Medication Management (CMM): [facility] Consult, Opt Out Linwood Doyle Diagnosis: migraine Therapy Start Date: 09/17/20 Contact in person or via telephone:phone Summary and Recommendations: Linwood Doyle was contacted in regards to a new prescription of aimovig to be filled with the [facility]. Linwood Doyle is aware of how to take this medication and of the prescribeddose. Linwood Doyle is enrolled in [facility]'s texting platform, [email or web address], which notifies patients of when their next refill is due. Linwood Doyle will be contacted by the pharmacy for regular MIDAS assessments to assess medication effectiveness. The patient's last MIDAS took place on 09/17/20. Therapy Assessment: Appropriate Therapy: Yes Current Medication Dosing/Route/Frequency: aimovig 140mg subq once monthly Additional equipment/supplies required: Sharps container Care Plan Reviewed and Approved by Pharmacist : Yes Pharmacist Reviewed Medications: Yes Medications reconciled: No Pharmacist Reviewed Allergies :Yes Allergies reconciled: No Pharmacist follow-up needed: Yes Informed patient of specialty pharmacy services: Yes -Patient is aware a licensed pharmacist is available 24 hours a day, 7 days a week to discuss medication-related questions or concerns: Yes -Patient verbalizes understanding of the common side effect profile of their medication. The patient is able to call 911 or seek urgent care if signs/symptoms of allergy or harmful adverse reactions occur: Yes Patient understands no changes to current drug regimen were made at the appointment and that the pharmacist is providing recommendations (summary located at top of note) for provider review and follow up. Alvino Sandoval RPH 09/18/20 1:31 PM documented in this encounter Plan of Treatment Not on file documented as of this encounter Visit Diagnoses Not on filedocumented in this encounter Care Teams Watcher Automat Long Goods Relationship Specialty Start Date End Date Renetta Velásquez, ENTRY LEVEL ADMINISTRATIVE ASSISTANT [address] [place] [address] PCP - General Family Medicine 07/25/20 documented as of this encounter
--- OUTSIDE RECORDS SUMMARY | 2023-11-24 15:19 | XMS_ITS | Continuity of Care Document ---
Author Name [facility] Address [address] [place] [address] Organization [facility] Address [address] [place] [address] Care Team Providers Care Sulfate Drier Machine Operator Name Role Phone Simona Ambriz Primary Care Physician Allergies, Adverse Reactions, Alerts Allergen Type Severity Reaction Last Updated Verified Status amoxicillin Allergy vomiting April 23, 2019 Y Acti ve clavulanic acid Allergy vomiting April 23, 2019 Y Active Medications Active Medications Medication Units Route Start Date Status Venlafaxine MG ORAL April 23, 2019 Active Levonorgestrel-Ethinyl Estrad TAB April 23, 2019 Active Sumatriptan Succinate MG ORAL April 23, 2019 Active Amitriptyline April 23, 2019 Active Problem List Active Problems Medical Problem Onset Date Status Arthralgia May 12, 2016 Avulsion of nail Active Procedures No known history of procedures. Relevant Diagnostic Tests and/or Laboratory Data No known relevant diagnostic tests, laboratory data, and/or discharge summary. Hospital Discharge Instructions Additional Discharge Instructions Ibupro fen or tylenol as needed for pain. Warm [...] followup here or with PCP if needed. No Instructions/Education Pr [facility] Hospital Discharge Medications Medication Dose Units Route Sig Qty Days Order Date Status Ins tructions Venlafaxine MG ORAL [place] 2019 Active Levonorgestrel-Ethinyl Estrad TAB April 23, 2019 Active Sumatriptan Succinate MG ORAL April 23, 2019 Active Amitriptyline Ma [facility] 2019 Active Encounters Encounter Facility Location Admit/Visit Date Discharge/Departure Date Attending Provider Departed Emergency [facility] April 23, 2019 2:27pm April 23, 2019 4:09pm Functional Status No known functional status. Immunizations Immunization Name Date Given Type Tdap April 23, 2019 Administered Payers Payer Name Policy Type Covered Libertarian Covered Libertarian Id Relationship Subscriber Subscriber Id [employer] [place] Commercial KYLE PINTO [id number] Child-Son/Daugh ter KYLE PINTO [id number] MEDICAID [facility] Medicaid CONSUELO ARIASCARTER [id number] Self/Same as Patient CONSUELO ARIASCARTER [id number] SELF PAY Personal [place] MEDICAID (DO NOT USE) Medicaid CONSUELO WRIGHTNiranjan [id number] Self/Same as Patient CONSUELO ARIASCARTER [id number] Plan of Care No Known Plan of Care Information Social History Query Response Date Recorded Comment Alcohol Use No April 23, 2019 3:24pm Smoking Status Never smoker April 23, 2019 3:24pm substance use type does not use April 23, 2019 3:24pm Query Response Start Date Stop Date Smoking Status Never smoker Vital Signs Vital Reading Result Reference Range Collection Date/Time Height 5 ft 5 in April 23, 2019 3:14pm Weight 69.853 kg April 23, 2019 3:14pm Temperature 98.3 F 97.6 F-99.6 F April 23, 2019 3:14pm Pulse 82 BPM 60-100 April 23, 2019 3:14pm Respiration 12 RPM 12-24 April 23, 2019 3:14pm Pulse Oximetry 99 % 95-100 April 22 0 3:14pm Blood Pressure Systolic 110 100-140 [facility] 2019 3:14pm Blood Pressure Diastolic 74 50-85 [facility] 2019 3:14pm Body Mass Index 25.6 April 22 3:14pm
--- OUTSIDE RECORDS SUMMARY | 2023-11-24 15:19 | XMS_ITS | Encounter Summary ---
Author Organization [facility] Address [facility] [place] [address] Care Team Providers Care Aerotriangulation Specialist Name Role Phone Renetta Velásquez APRN Primary Care Provider Reason for Visit * Reason Onset Date Comments Prior Authorization 07/13/2021 Zolmatriptan 2.5 mg Encounter Details Date Type Department Care Team (Late st Contact Info) Description 07/13/2021 Telephone Neurology at [address] [phone] Bernabe Fallon MD [facility] [place] [address] Prior Authorization (Zolmatriptan 2.5 mg) Social History Tobacco Use Types Packs/Day Years [...] encounter Miscellaneous Notes * Telephone Encounter - Nuha Saenz RN - 07/27/2021 1:19 PM EDT CONSUELO DOYLE (Fu: [id number]) Status: Sent to Plan today Next Steps: The plan will fax you a determination, typically within 1 to 5 business days. How do I follow up? Drug: ZOLMitriptan 2.5MG tablets Form: [place] Medicaid General Form General Form for [place] Medicaid Members phone fax * Telephone Encounter - Nuha Saenz RN - 07/27/2021 1:12 PM EDT * Telephone Encounter - Eunice Ricardo RN - 07/13/2021 3:29 PM EDT Images from the original note were not included. documented in this encounter Plan of Treatment Not on file documented as of this encounter Visit Diagnoses Not on filedocumented in this encounter Care Teams Aerotriangulation Specialist Relationship Specialty Start Date End Date Renetta Velásquez, TIA [address] [place] [address] PCP - General Family Medicine 07/25/20 documented as of this encounter
--- OUTSIDE RECORDS SUMMARY | 2023-11-24 15:19 | XMS_ITS | Encounter Summary ---
[facility] [place] [address] Care Team Providers Care Bankruptcy Manager Name Role Phone Renetta Velásquez APRN Primary Care Provider Reason for Visit * Reason Comments Medication Management Encounter Details Date Type Department Care Team (Late st Contact Info) Description 11/30/2021 Specialty [place] [phone] Compa Nixon [facility] Social History Tobacco Use Types [...] as of this encounter Progress Notes * Compa Nixon RPH - 11/30/2021 9:21 AM EDT Clinical Management Plan: Transfer of Care/Discharge Specialty Services Specialty Pharmacy Consultation; Compa Nixon RPH Comprehensive Medication Management (CMM) Linwood Doyle [address] [facility] [address] Telephone Information: Work Phone Not on file. Is the patient transferring services to a different Specialty Pharmacy or discontinuing the medication? Discontinuing Services Medication: ajovy Reason for discontinuation or transfer: lost to contact Approximate date of discontinuation or transfer: 11/30/21 Patient's response to therapy: ineffective? Summary of services provided by [facility]- Specialty: ns, rr, midas Summary of on-going needs: call clinic Referral for additional services (if applicable): no Is patient aware of referral? no Instructions provided to patient about discharge/transfer: no Provider aware of discontinuation or transfer: yes Patient understands no changes to current drug regimen were made at the appointment and that [facility] isproviding recommendations (summary located at top of note) for provider review and follow up. Compa Nixon RPH 11/30/21 9:24 AM documented in this encounter Plan of Treatment Not on file documented as of this encounter Visit Diagnoses Not on filedocumented in this encounter Care Teams Bankruptcy Manager Relationship Specialty Start Date End Date Renetta Velásquez, COFFEE SOMMELIER [address] [place] [address] PCP - General Family Medicine 07/25/20 documented as of this encounter
--- OUTSIDE RECORDS SUMMARY | 2023-11-24 15:19 | XMS_ITS | Encounter Summary ---
Author Organization [facility] Address [facility] [place] [address] Care Team Providers Care Clinical Orthoptist Name Role Phone Renetta Velásquez APRN Primary Care Provider [phone] Reason for Visit * Reason Onset Date Comments Prior Authorization 09/19/2020 Encounter Details Date Type Department Care Team (Late st Contact Info) Description 09/19/2020 Telephone Neurology at [address] [phone] Bernabe Fallon MD [facility] [place] [address] Prior Authorization Social History Tobacco Use Types Packs/Day Years [...] encounter Miscellaneous Notes * Telephone Encounter - Roz Antoine - 09/19/2020 10:46 AM EDT Call Center / [place] Message - General Issue Call Provider patient sees in Clinic: Dr Bernabe Fallon Caller and relationship (if other than patient-full name): AMY Del Angel [place] Call back number: [phone] Ok to leave a message: yes Reason for call: Bean is calling the office to let the team know the PA for the Aimovig Auto Injector has been approved for 140mg, inject once every 28 days, approved for 3 month supply, date rangefrom 09/18/20-12/19/2020. Approval number is [id number]. If there are any questions please call Bean Disposition of Call (choose one and remove others): ??? Routine Message sent to the Nurse: yes Nurse/Construction Cost Estimator contacted via: Message: yes Call: no Pager: no documented in this encounter Plan of Treatment Not on file documented as of this encounter Visit Diagnoses Not on filedocumented in this encounter Care Teams Clinical Orthoptist Relationship Specialty Start Date End Date Renetta Velásquez, TIA [address] [place] [address] PCP - General Family Medicine 07/25/20 documented as of this encounter
--- OUTSIDE RECORDS SUMMARY | 2023-11-24 15:19 | XMS_ITS | Encounter Summary ---
Author Organization [facility] [place] [address] Care Team Providers Care Christian Science Practitioner Name Role Phone Renetta Velásquez APRN Primary Care Provider Reason for Visit * Reason Onset Date Comments Medication Refill 07/07/2021 Encounter Details Date Type Department Care Team (Late st Contact Info) Description 07/07/2021 Refill Neurology at [address] [phone] Bernabe Fallon MD [facility] [place] [address] Chronic migraine without aura, with intractable migraine, [...] migrainosus documented in this encounter Care Teams Christian Science Practitioner Relationship Specialty Start Date End Date Renetta Velásquez APRN [address] [place] [address] PCP - General Family Medicine 07/25/20 documented as of this encounter
--- OUTSIDE RECORDS SUMMARY | 2023-11-24 15:19 | XMS_ITS | Encounter Summary ---
Author Organization [facility] Address [facility] [place] [address] Care Team Providers Care Cabinet Professional Name Role Phone Renetta Velásquez APRN Primary Care Provider Reason for Visit * Reason Onset Date Comments TeleHealth 01/06/2021 Encounter Details Date Type Department Care Team (Late st Contact Info) Description 01/06/2021 Telephone Neurology at [address] [phone] Bernabe Fallon MD [facility] [place] [address] TeleHealth Social History Tobacco Use Types Packs/Day Years [...] encounter Miscellaneous Notes * Telephone Encounter - Tierra aBins RN - 01/06/2021 11:18 AM EST Unable to reach this patient by phone to review their medications and allergies prior to their upcoming tele-appointment with the Neurology provider. No message left. documented in this encounter Plan of Treatment Not on file documented as of this encounter Visit Diagnoses Not on filedocumented in this encounter Care Teams Cabinet Professional Relationship Specialty Start Date End Date Renetta Velásquez, RESIDENTIAL TEAM LEADER [address] [place] [address] PCP - General Family Medicine 07/25/20 documented as of this encounter
--- OUTSIDE RECORDS SUMMARY | 2023-11-24 15:19 | XMS_ITS | Continuity of Care Document ---
Author Name [facility] Address [address] [place] [address] Organization [facility] Address [address] [place] [address] Care Team Providers Care Certified Nurse Aide Name Role Phone Simona Ambriz Primary Care [...] Onset Date Status Arthralgia May 12, 2016 Inactive/Resolved Problems Medical Problem Onset Date Status Avulsion of nail Inactive Procedures No known history of procedures. Relevant [...] ORAL April 23, [address] [facility] 2019 Active Encounters Encounter Facility Location Admit/Visit Date Discharge/Departure Date Attending Provider Departed Emergency [facility] April 23, 2019 2:27pm April 23, 2019 4:09pm Functional Status No known functional status. Immunizations Immunization Name Date Given Type Tdap April 23, 2019 Administered Payers Payer Name Policy Type Covered Democrat Covered Democrat Id Relationship Subscriber Subscriber Id [facility] Commercial KYLE PINTO [id number] Child-Son/Daugh ter KYLE PINTO [id number] 000 [place] Medicaid CONSUELO ARIASCARTER [id number] Self/Same as Patient CONSUELO ARIASCARTER [id number] SELF PAY Personal [place] MEDICAID (DO NOT USE) Medicaid CONSUELO JUANACARTER [id number] Self/Same as Patient CONSUELO ARIASCARTER [id number] Plan of Care No Known Plan of [...] 0 3:14pm Blood Pressure Systolic 110 100-140 [facility] 2019 3:14pm Blood Pressure Diastolic 74 50-85 Mar 2019 3:14pm Body Mass Index 25.6 April 22 3:14pm
--- OUTSIDE RECORDS SUMMARY | 2023-11-24 15:19 | XMS_ITS | Encounter Summary ---
[place] [address] Care Team Providers Care Plumber Gasfitter Name Role Phone Renetta Velásquez APRN Primary Care Provider Reason for Visit * Reason Comments Prior Authorization Ajovy 225 mg/1.5 mL Autoinjector Encounter Details Date Type Department Care Team (Late st Contact Info) Description 01/07/2021 Specialty [place] [address] Sander Paris, [facility] Social History Tobacco Use Types Packs/Day Years Used Date Smoking Tobacco: Former Smokeless Tobacco: Never Alcohol Use Standard Drinks/Week Comments Not Currently 0 (1 standard drink = 0.6 oz pur e alcohol) Sex and Gender Information Value Date Recorded Sex Assigned at Not on file Gender Identity Not on file Sexual Orientation Not on file documented as of this encounter Progress Notes * Sander Paris - 01/07/2021 12:35 PM EST [facility], No Prior Authorization Required Patient: Linwood Doyle Patient : [id number] Patient Address: [address] [place] [address] Phone: There is no home phone number on file. Medication Name: AJOVY SYRINGE 225 MG/1.5 ML SUBCUTANEOUS Medication ID: [id number] Patient Location: [facility] Patient Location Comment: Medication Strength Frequency Requested: inject one pen's contents (225 mg) once every thirty days Qty/Day Supply: 03/08 New Start: New to Therapy Diagnosis & ICD-10 Code: G43.711 - Chronic migraine without aura, with intractable migraine, sostated, with status migrainosus Subscriber Insurance: SenexxSAI) Subscriber Insurance Comment: Fax: Physician: WOLFGANG PALOMARES Physician Comment : PA Status: NO PA REQUIRED Insurance mandated Pharmacy: [facility] Fill[facility]: Yes Insurance requirements/notes: None Copay: $0 Copay assistance: None Copay assistance comment: Pharmacy staff will be reaching out to the patient to inform them of their medication[facility]. If applicable, a pharmacist will speak with the patient to offer our specialty pharmacy services and to arrange delivery of their medication. Sander Paris 01/07/21 1:03 PM documented in this encounter Plan of Treatment Not on file documented as of this encounter Visit Diagnoses Not on filedocumented in this encounter Care Teams Plumber Gasfitter Relationship Specialty Start Date End Date Renetta Velásquez, BRAKE SHOE REBUILDER [address] [place] [address] PCP - General Family Medicine 07/25/20 documented as of this encounter
--- OUTSIDE RECORDS SUMMARY | 2023-11-24 15:19 | XMS_ITS | Encounter Summary ---
[facility] [place] [address] Care Team Providers Care Risk Investigator Name Role Phone Renetta Velásquez APRN Primary Care Provider Reason for Visit * Reason Comments Medication Management Encounter Details Date Type Department Care Team (Late st Contact Info) Description 01/07/2021 Specialty [place] [phone] Carlo Mata, [facility] Social History Tobacco Use Types Packs/Day Years Used Date Smoking Tobacco: Former Smokeless Tobacco: Never Alcohol Use Standard Drinks/Week Comments Not Currently 0 (1 standard drink = 0.6 oz pur e alcohol) Sex and Gender Information Value Date Recorded Sex Assigned at Not on file Gender Identity Not on file Sexual Orientation Not on file documented as of this encounter Progress Notes * Carlo Mata [facility] - 01/07/2021 2:16 PM EST Specialty Pharmacy Consultation; Carlo Mata [facility] Comprehensive Medication Management (CMM): Specialty Consult, Opt Out Linwood Doyle Diagnosis: Chronic migraine without aura Therapy Start Date: TBD ~ 01/09/2021 Contact in person or via telephone: Telephone Is the patient willing to proceed with the Clinical Assessment? No Summary and Recommendations: Linwood Doyle was contacted in regards to a new prescription of AJOVY to be filled with the [facility]. Linwood Doyle is aware of how to take this medication and of the prescribed dose. Linwood Doyle is enrolled in [facility]'s texting platform, delta[employer], which notifies patients of when their next refill is due. Linwood Doyle will be contacted by the pharmacy for regularMIDAS assessments to assess medication effectiveness. The patient's last MIDAS took place on 01/06/2021. Economic Assessment: Patient is agreeable to medication copay: Yes Copay Amount: $0 Day Supply: 30 Date Needed: HERB - new start Therapy Assessment: Appropriate Therapy: Yes Current Medication Dosing/Route/Frequency: Ajovy 225mg/1.5mL SOAJ Inject the contents of one pen (225 mg) subcutaneously once every 30 days Additional equipment/supplies required: no Care Plan Reviewed and Approved by Pharmacist : Yes Problem List: Patient Active Problem List Diagnosis Code ??? JONATHAN (generalized anxiety disorder) F41.1 ??? Goiter E04.9 ??? MDD (major depressive disorder) F32.9 ??? Low vitamin D level R79.89 ??? 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 CRP elevated R79.82 ??? Back pain M54.9 ??? IBS (irritable bowel syndrome) K58.9 ??? Neck pain M54.2 ??? Chronic migraine without aura, with intractable migraine, so stated, with status migrainosus G43.711 ??? Suicidal ideation R45.851 Medications Reviewed: Yes Medications reconciled: No Allergies Reviewed:Yes Allergies reconciled: No Pharmacist follow-up needed: Yes Informed patient of specialty pharmacy services: Yes Welcome Packet and Rights and Responsibilities: Patient provided welcome packet/rights and responsibilities: Yes -Patient is aware a licensed pharmacist [...] note) for provider review and follow up. Carlo Mata RPH 01/07/21 2:19 PM documented in this encounter Plan of Treatment Not on file documented as of this encounter Visit Diagnoses Not on filedocumented in this encounter Care Teams Risk Investigator Relationship Specialty Start Date End Date Renetta Velásquez, REPORTING MANAGER [address] [place] [address] PCP - General Family Medicine 07/25/20 documented as of this encounter
[2023-11-24 21:28] LABS: HCT 44.8 % (36.0-46.0); HGB 14.7 g/dL (11.2-15.7); MCH 30.8 pg (27.0-33.0); MCHC 32.8 % (32.0-36.0); MCV 94 fL (80-95); MPV 12.5 fL (8.0-11.0); Platelet Count 264 10^3/uL (130-400); RBC 4.78 10^6/uL (3.93-5.22); RDW 12.5 % (11.7-14.6); RDW-SD 43.3 fL; WBC 9.67 10^3/uL (4.4-10.8)
[2023-11-24 22:00] LABS: C-Reactive Protein < 0.50 mg/dL (<or=0.5)
[2023-11-24 22:06] LABS: ESR 23 mm/hr (0-20)
[2023-11-28 10:54] LABS: Lyme Ab w Rflx to Lyme Confirm Negative (Negative)
[2023-11-28 16:09] LABS: Anaplasma phagocytophilum Negative (Negative); B. miyamotoi PCR Negative (Negative); Babesia divergens/MO-1 Negative (Negative); Babesia duncani Negative (Negative); Babesia microti Negative (Negative); Ehrlichia chaffeensis Negative (Negative); Ehrlichia ewingii/canis Negative (Negative); Ehrlichia muris eauclairensis Negative (Negative)
== END 2023-11-24 15:13 | disposition home or self-care (01) ==
LOC: NCHCN 15:12
PROVIDERS: PCP Family Medicine; Visit Provider Family Medicine
DX: M13.0 Polyarthritis, unspecified (principal)
CPT/HCPCS: 85027; 85652; 87798; 88142; 86140; 86618; 87624